=== PATIENT | male | born 1950 | race Caucasian/White ===

== ENCOUNTER 2018-01-22 12:26 | Inpatient (IN) | payer MEDICARE, MEDICAID ==
[2018-01-22 13:07] LABS: ALB/GLOB RATIO 1.1 (1.0-1.8); ALBUMIN 3.4 gm/dL (4.2-5.5); ANION GAP 12.4 (7.0-16.0); BILIRUBIN,TOTAL 0.6 mg/dL (0.3-1.0); CALCIUM SERUM 8.9 mg/dL (8.6-10.3); CARBON DIOXIDE 21.7 mEq/L (21.0-31.0); CREATININE - SERUM 1.8 mg/dL (0.7-1.3); GFR AFRICAN-AMERICAN 48.9 ml/min (>90); GFR NON AFRICAN-AMERICAN 40.4 ml/min; PHOSPHOROUS 3.6 mg/dL (2.5-5.0); POTASSIUM SERUM 5.1 mEq/L (3.5-5.1); TOTAL PROTEIN,SERUM 6.5 gm/dL (6.0-8.3)
[2018-01-22 13:22] LABS: % EOSINOPHILS 0.7 % (0.0-5.0); % LYMPHOCYTES 15.2 % (20.0-50.0); % MONOCYTES 10.9 % (2.0-10.0); % NEUTROPHILS 73.2 % (40.0-80.0); EOSINOPHILE ABSOLUTE 0.1 Th/cmm (0.1-0.4); HEMATOCRIT 29.2 % (41.0-60); HEMOGLOBIN 9.8 gm/dL (12-16); LYMPHOCYTE ABSOLUTE 1.8 Th/cmm (1.5-3.0); MEAN CELL VOLUME 86.3 fl (80-99); MEAN CORPUSCULAR HGB CONC 33.6 pg (28.0-36.0); MONOCYTE ABSOLUTE 1.3 Th/cmm (0.3-1.0); NEUTROPHILE ABSOLUTE 8.4 Th/cmm (1.8-8.0); PLATELET COUNT 305 Th/cmm (150-400); RED BLOOD COUNT 3.38 Mil/cmm (3.80-5.80); RED CELL DISTRIBUTION WIDTH 13.8 % (11.5-20.0); WHITE BLOOD COUNT 11.6 Th/cmm (4.8-10.8)
--- NOTE | 2018-01-22 13:34 | Diagnostic Imaging Report ---
Portable chest x-ray HISTORY: Shortness of breath There is a poor inspiration. Heart size difficult to assess. Faint density noted in the right lower lobe. Findings of questionable significance. Early infiltrate cannot be excluded. Clinical correlation is needed. IMPRESSION: 1. Faint density right lower lobe. Early infiltrate cannot be excluded. Clinical correlation is needed.
[2018-01-22] MEDS ORDERED: Piperacillin Sodium/Tazobact 3.375 gm Vial IV ONE (14:48)
--- NOTE | 2018-01-22 15:26 | ED Physician Chart ---
ED Chief Complaint/HPI - Patient Information Date Seen:: 01/22/18 Time Seen:: 12:44 Chief Complaint:: fever, weakness History of Present Illness:: fever, weakness, lthargy in a man who was given neurontin and norco at the same time last night and eloped from the facility. He did return. He normally doesn 't wear oxygen. Allergies:: Allergies Allergy/AdvReac Type Severity Reaction Status Date / Time No Known Allergies Allergy Verified 01/22/18 12:40 Vitals:: Vital Signs - 8 hr 01/22/18 12:44 Temp 99.2 F HR 87 RR 16 BP 131/70 O2 Sat % 89 Historian:: Patient, EMS, Family Member Review:: Nurse's Note Reviewed, Transfer documents Reviewed ED Review of Systems - Review of Systems General/Constitutional: Fever, Weakness Skin: No skin lesions, No rash, No bruising Head: No headache, No light-headedness Eyes: No loss of vision, No pain, No diplopia ENT: No earache, No nasal drainage, No sore throat, No tinnitus Neck: No neck pain, No swelling, No thyromegaly, No stiffness, No mass noted Cardio Vascular: No chest pain, No palpitations, No PND, No orthopnea, No edema Pulmonary: No SOB, No cough, No sputum, No wheezing GI: No nausea, No vomiting, No diarrhea, No pain, No melena, No hematochezia, No constipation, No hematemesis G/U: No dysuria, No frequency, No hematuria Musculoskeletal: No bone or joint pain, No back pain, No muscle pain Endocrine: No polyuria, No polydipsia Psychiatric: No prior psych history, No depression, No anxiety, No suicidal ideation Hematopoietic: No bruising, No lymphadenopathy Allergic/Immuno: No urticaria, No angioedema Neurological: No syncope, No focal symptoms, No weakness, No paresthesia, No headache, No seizure, No dizziness, Confusion, No vertigo ED Past Medical History - Past Medical History Obtainable: No Past Medical History: HTN, DM, Other (chronic kidney disease) ED Physical Exam - Physical Examination General/Constitutional: Awake Other Gen/Cons comments:: answers all questions appropriately. pale appearing Head: Atraumatic Eyes: Lids, conjuctiva normal, PERRL, EOMI ENMT: External ears, nose nl Neck: Nontender Other Respiratory comments:: decreased breath sounds at bases. Cardio Vascular: RRR GI: No tenderness/rebounding/guarding : No CVA tenderness Other comments:: purulence around suprapubic tube site. Extremities: No tenderness or effusion, Full ROM Neuro/Psych: Alert/oriented, Normal sensory exam, Normal motor strength, Judgement/insight normal, Mood normal Misc: Normal back ED Labs/Radiology/EKG Results - Lab Results Results: Laboratory Tests 01/22/18 01/22/18 01/22/18 12:43 12:45 12:45 WBC 11.6 H RBC 3.38 L Hgb 9.8 L Hct 29.2 L MCV 86.3 MCH 29.0 MCHC Differential 33.6 RDW 13.8 Plt Count 305 MPV 8.0 Neutrophils % 73.2 Lymphocytes % 15.2 L Monocytes % 10.9 H Eosinophils % 0.7 Basophils % 0.0 Sodium 134 L Potassium 5.1 Chloride 105 Carbon Dioxide 21.7 Anion Gap 12.4 BUN 36 H Creatinine 1.8 H Est GFR ( Amer) 48.9 Est GFR (Non-Af Amer) 40.4 BUN/Creatinine Ratio 20.0 Glucose 153 H POC Glucose 152 H Whole Bld Lactic Acid Calcium 8.9 Phosphorus 3.6 Magnesium Total Bilirubin 0.6 AST 15 ALT 12 Alkaline Phosphatase 91 Total Protein 6.5 Albumin 3.4 L Globulin 3.1 Albumin/Globulin Ratio 1.1 TSH 01/22/18 01/22/18 01/22/18 12:45 12:45 12:45 WBC RBC Hgb Hct MCV MCH MCHC Differential RDW Plt Count MPV Neutrophils % Lymphocytes % Monocytes % Eosinophils % Basophils % Sodium Potassium Chloride Carbon Dioxide Anion Gap BUN Creatinine Est GFR ( Amer) Est GFR (Non-Af Amer) BUN/Creatinine Ratio Glucose POC Glucose Whole Bld Lactic Acid 0.70 Calcium Phosphorus Magnesium 2.2 Total Bilirubin AST ALT Alkaline Phosphatase Total Protein Albumin Globulin Albumin/Globulin Ratio TSH 0.22 L ED Assessment - Assessment General Assessment: EKG from 14:55:42 p.m. reveals normal sinus rhythm, flipped t wave in AVR and V1. Assessment/Comments:: ate lunch without difficulty. fed by . Dr. Wills came by to see the patient at 3 p.m. to admit him to the hospital, telemetry unit. ED Septic Shock - . Is Septic Shock (SBP<90, OR Lactate>4 mmol\L) present?: No - <6hrs of presentation: Vital Signs: Vital Signs - 8 hr 01/22/18 12:44 Temp 99.2 F HR 87 RR 16 BP 131/70 O2 Sat % 89 ED Reassessment (Disposition) - Reassessment Reassessment Condition:: Improved - Diagnosis Diagnosis:: Right lower lobe pneumonia Hypoxia with room air saturations 90% Oxygen dependence Chronic renal insufficiency (hypertensive in nature) Dehydration Dehydration Weakness Leukocytosis Anemia Thrombocytosis Depressed thyroid level. - Patient Disposition Discharge/Transfer:: Acute Care w/in this hosp Admitted to:: Telemetry Condition at Disposition:: Stable, Improved
[2018-01-22] MEDS ORDERED: Lactated Ringer 1,000 ML IV ONE (15:29)
[2018-01-22 15:43] LABS: URINE SOURCE CATH
[2018-01-22 15:47] LABS: URINE BILIRUBIN NEGATIVE (NEGATIVE); URINE BLOOD MODERATE (NEGATIVE); URINE GLUCOSE (UA) NEGATIVE (NEGATIVE); URINE KETONE NEGATIVE (NEGATIVE); URINE LEUKOCYTE ESTERASE MODERATE (NEGATIVE); URINE MICROSCOPIC INDICATED? YES; URINE NITRATE NEGATIVE (NEGATIVE); URINE PROTEIN >=300 mg/dL (NEGATIVE); URINE UROBILINOGEN 0.2 E.U./dL (0.2 - 1.0)
[2018-01-22 15:49] LABS: URINE CLARITY HAZY (CLEAR); URINE COLOR YELLOW
[2018-01-22 15:52] LABS: URINE WBC 25-50 /hpf (0-5)
[2018-01-22 15:53] LABS: URINE BACTERIA 3+ /hpf (NONE SEEN); URINE EPITHELIAL CELLS FEW /lpf (FEW)
--- NOTE | 2018-01-22 15:57 | Consultation ---
Consult Note - Consult Note Service Date: 01/22/18 Referring Physician: Susan Wills Consult Note: PHYSICIAN Consultation Note: Date of Admission: 01/22/18 Purpose of Consultation: UTI, Pneumonia. Chief Complaint: Patient AMMON VALDEZ JR [facility] with PNA, R/O INFECTED SUPRAPUBIC CATHETER. History of Present Illness: 67-year-old male with h/o HTN, DM brought to the ED for fever, weakness, lethargy. Even he eloped from his facility and returned back. On initial evaluation, his temperature was 99.2 F and WBC Count was 11, 600. Urinalysis showed pyuria and bacteriuria. CXR showed RLL faint density, suspecting early pneumonia. ID consult was called for further management. Past Medical History: Allergies Allergy/AdvReac Type Severity Reaction Status Date / Time No Known Allergies Allergy Verified 01/22/18 12:40 Vital Signs Temp 99.2 F 01/22/18 12:44 Pulse 87 01/22/18 12:44 Resp 16 01/22/18 12:44 BP 131/70 01/22/18 12:44 Pulse Ox 89 01/22/18 12:44 Intake & Output 01/21/18 01/22/18 01/22/18 18:59 06:59 18:59 Weight (lbs) 104.326 kg Other: Weight Source Estimated Laboratory Results - last 24 hr 01/22/18 01/22/18 01/22/18 12:43 12:45 12:45 WBC 11.6 H RBC 3.38 L Hgb 9.8 L Hct 29.2 L MCV 86.3 MCH 29.0 MCHC Differential 33.6 RDW 13.8 Plt Count 305 MPV 8.0 Neutrophils % 73.2 Lymphocytes % 15.2 L Monocytes % 10.9 H Eosinophils % 0.7 Basophils % 0.0 Sodium 134 L Potassium 5.1 Chloride 105 Carbon Dioxide 21.7 Anion Gap 12.4 BUN 36 H Creatinine 1.8 H Est GFR ( Amer) 48.9 Est GFR (Non-Af Amer) 40.4 BUN/Creatinine Ratio 20.0 Glucose 153 H POC Glucose 152 H Whole Bld Lactic Acid Calcium 8.9 Phosphorus 3.6 Magnesium Total Bilirubin 0.6 AST 15 ALT 12 Alkaline Phosphatase 91 Troponin I Total Protein 6.5 Albumin 3.4 L Globulin 3.1 Albumin/Globulin Ratio 1.1 TSH Urine Source Urine Color Urine Clarity Urine pH Ur Specific [place] Urine Protein Urine Glucose (UA) Urine Ketones Urine Blood Urine Nitrate Urine Bilirubin Urine Urobilinogen Ur Leukocyte Esterase Urine RBC Urine WBC Ur Epithelial Cells Urine Bacteria 01/22/18 01/22/18 01/22/18 12:45 12:45 12:45 WBC RBC Hgb Hct MCV MCH MCHC Differential RDW Plt Count MPV Neutrophils % Lymphocytes % Monocytes % Eosinophils % Basophils % Sodium Potassium Chloride Carbon Dioxide Anion Gap BUN Creatinine Est GFR ( Amer) Est GFR (Non-Af Amer) BUN/Creatinine Ratio Glucose POC Glucose Whole Bld Lactic Acid 0.70 Calcium Phosphorus Magnesium 2.2 Total Bilirubin AST ALT Alkaline Phosphatase Troponin I Total Protein Albumin Globulin Albumin/Globulin Ratio TSH 0.22 L Urine Source Urine Color Urine Clarity Urine pH Ur Specific [place] Urine Protein Urine Glucose (UA) Urine Ketones Urine Blood Urine Nitrate Urine Bilirubin Urine Urobilinogen Ur Leukocyte Esterase Urine RBC Urine WBC Ur Epithelial Cells Urine Bacteria 01/22/18 01/22/18 12:45 15:06 WBC RBC Hgb Hct MCV MCH MCHC Differential RDW Plt Count MPV Neutrophils % Lymphocytes % Monocytes % Eosinophils % Basophils % Sodium Potassium Chloride Carbon Dioxide Anion Gap BUN Creatinine Est GFR ( Amer) Est GFR (Non-Af Amer) BUN/Creatinine Ratio Glucose POC Glucose Whole Bld Lactic Acid Calcium Phosphorus Magnesium Total Bilirubin AST ALT Alkaline Phosphatase Troponin I 0.04 Total Protein Albumin Globulin Albumin/Globulin Ratio TSH Urine Source CATH Urine Color YELLOW Urine Clarity HAZY Urine pH 7.0 Ur Specific [place] 1.020 Urine Protein >=300 Urine Glucose (UA) NEGATIVE Urine Ketones NEGATIVE Urine Blood MODERATE H Urine Nitrate NEGATIVE Urine Bilirubin NEGATIVE Urine Urobilinogen 0.2 Ur Leukocyte Esterase MODERATE H Urine RBC 5-10 H Urine WBC 25-50 H Ur Epithelial Cells FEW Urine Bacteria 3+ H Home Medication Medication Instructions Recorded Type Albuterol/Ipratropium Neb [Duoneb 3 ml HHN Q4HR PRN 01/22/18 History Neb] Aspirin [Aspirin Chewable] 81 mg PO DAILY 01/22/18 History Atorvastatin Calcium [Lipitor] 10 mg PO HS 01/22/18 History Bisacodyl [Dulcolax 10 Mg Supp] 10 mg RC DAILY PRN 01/22/18 History Carbamide Peroxide [Debrox Otic 5 drop RIGHT EAR BID 01/22/18 History Drops] Dexamethasone/Tobramycin [Tobradex 2 drop LEFT EYE TID 01/22/18 History 0.1%-0.3% Ophth Susp 2.5ml] Fleet Enema 135 ml RC PRN PRN 01/22/18 History Gabapentin 300 mg PO Q8H 01/22/18 History Hydralazine HCl 50 mg PO TID 01/22/18 History Insulin Glargine,Hum.rec.anlog 20 unit SUBQ Q12H 01/22/18 History [Lantus Solostar] Insulin Human Regular [NovoLIN R] 0 units SUBQ ACHS 01/22/18 History Isosorbide Mononitrate [Imdur] 30 mg PO HS 01/22/18 History Magnesium Hydroxide [Milk of 30 ml PO DAILY PRN 01/22/18 History Magnesia] Melatonin 3 mg PO HS 01/22/18 History Metoprolol Succinate 25 mg PO DAILY 01/22/18 History Multivitamin with Minerals 1 each PO DAILY 01/22/18 History [Myvitalife] Nitroglycerin [Nitro-Bid] 1 inch TD BID 01/22/18 History Pantoprazole [Protonix] 40 mg PO DAILY 01/22/18 History Current Medications Generic Name Dose Route Start Last Admin Trade Name Freq PRN Reason Stop Dose Admin Lactated Ringer's 1,000 mls @ 125 mls/hr 01/22/18 15:29 Lactated Ringer IV 01/22/18 23:28 .Q8H ONE Vancomycin HCl 1.5 gm/ Sodium 500 mls @ 250 mls/hr 01/22/18 16:00 Chloride IV 01/22/18 17:59 ONCE ONE Sodium Chloride 1,000 mls @ 75 mls/hr 01/22/18 16:00 Nacl 0.45% IV 03/23/18 15:59 .[id number] [facility] Insulin Aspart 0 units 01/22/18 16:30 Novolog Insulin Sliding Scale SUBQ 03/23/18 16:29 ACHS KRISH Protocol Miscellaneous 1 ea 01/22/18 15:21 Vancomycin Iv Per Pharmacy 03/23/18 15:20 PRN PRN PROTOCOL Miscellaneous 1 ea 01/22/18 15:22 Zosyn Iv Per Pharmacy 03/23/18 15:21 PRN PRN PROTOCOL Review of Systems: A 12 point ROS was reviewed with the pertinent positive and negatives noted in the HPI. Social History Smoking Status Never smoker Physical Exam: General: Comfortable, not in any distress, HEENT: HEAD NC NT, ORAL CAVITY: Moist, pink tongue, pupil PERRLA. EOMI. Neck: Supple, no JVD, no carotid bruit. No use of accessory neck muscles. Cardio: S1 and D2 WNL. Respiratory: CTAP Abdominal: Soft NT ND BS present. Genital/Urinary: Extremities: NCCE finger nails are yellow and disfigured. Neurological: aaox3 Assessment: 1. UTI. 2. RLL pneumonia. 3. Respiratory failure. 4. Dementia. 5. DM2 6. HTN. 7. Tinea corporis/pedis Plan: Start Zosyn. Influenza screen. sepsis w/u. Lamisil Signed, Eber Manning M.D. [id number]
[2018-01-22] MEDS ORDERED: Vancomycin HCl 1.5 GM in Sodium Chloride 0.9% 500 ML IV ONE (16:00)
[2018-01-22 16:13] LABS: AMPHETAMINE URINE NEGATIVE (NEGATIVE); BARBITURATES URINE NEGATIVE (NEGATIVE); BENZODIAZEPINES QUAL URINE NEGATIVE (NEGATIVE); CANNABINOID THC NEGATIVE (NEGATIVE); COCAINE METABOLITE QUAL URINE NEGATIVE (NEGATIVE); METHADONE URINE NEGATIVE (NEGATIVE); METHAMPHETAMINES QUAL URINE NEGATIVE (NEGATIVE); OPIATES (MORPHINE) QUAL. URINE POSITIVE (NEGATIVE); PHENCYCLIDINE (PCP) URINE NEGATIVE (NEGATIVE); TRICYCLICS (TCA) QUAL. URINE NEGATIVE (NEGATIVE)
[2018-01-22] MEDS ORDERED: Magnesium Hydroxide (MOM) 30 mL UDC PO PRN (18:57)
[2018-01-22] MEDS ORDERED: Maalox 30 mL Cup PO PRN (18:57)
[2018-01-22] MEDS ORDERED: Albuterol/Ipratropium Neb 3 ML AERS HHN PRN (18:57)
[2018-01-22] MEDS ORDERED: Lidocaine 2% Gel 5 mL TP PRN (18:57)
[2018-01-22] MEDS ORDERED: Fleet Enema 135 mL RC PRN (18:57)
[2018-01-22] MEDS ORDERED: Hydrocodone/APAP 5mg/325mg Tab PO PRN (18:57)
--- NOTE | 2018-01-22 20:51 | Consultation ---
DATE OF CONSULTATION: UROLOGY CONSULTATION REASON FOR CONSULTATION: 1. Seen in the Emergency Room for "sepsis" from pneumonia and possible UTI. 2. Purulent drainage from around the suprapubic catheter. HISTORY OF PRESENT ILLNESS: The patient is a 67-year-old who was at [facility] 2 months ago with urinary retention. He underwent TURP successfully, but was unable to empty his bladder due to a neurogenic dysfunction. He then underwent a suprapubic catheter placement and was then discharged to a [place] [facility] from where he returns today with a diagnoses of hypoxia, dehydration, weakness, and leukocytosis. HOME MEDICATIONS: Albuterol inhaler, aspirin, Lipitor, Dulcolax, eyedrops, enemas, gabapentin, hydralazine, insulin, isosorbide, Imdur, melatonin, milk of magnesia, metoprolol, and Protonix. ALLERGIES: None. PHYSICAL EXAMINATION: GENERAL: He is awake, alert, slightly lethargic. VITAL SIGNS: Temperature 99.2, heart rate 87, blood pressure 131/70. His is at the bedside. ABDOMEN: Soft, nondistended, nontender. Suprapubic tube is in place, but not anchored as well as it should be, with a small amount of purulent drainage around the tract. The urine in the tube is yellow, but with a lot of debris and sediment. LABORATORY DATA: White count 11.6, hemoglobin 9.8, slight left shift. Sodium 134, potassium 5.1, BUN 36, creatinine 1.8, and glucose 153. Liver functions are normal. IMPRESSION: Neurogenic bladder with suprapubic tube, status post failed TURP and neurogenic bladder. Recommend catheter care. Discussed and explained to the nurses about anchoring the catheter, keeping it clean, irrigating it with normal saline several times now and then once a day and cleaning and packing the wound around the suprapubic catheter first with Betadine and then with iodoform gauze. I do not think that this is the cause of his sepsis if any and would concentrate more on the chest x-ray findings and the possibility of pneumonia. JOB# [id number]
[2018-01-22] MEDS ORDERED: Non-Formulary Item 1 EA (Melatonin [Melatonin] 3 MG) PO SCH (21:00)
[2018-01-22] MEDS: Atorvastatin Calcium 10 MG TAB PO SCH (21:03)
[2018-01-22] MEDS: Sodium Chloride 0.45% 1,000 ML IV SCH (21:05)
[2018-01-22] MEDS: Dexamethasone/Tobramycin Ophth Susp 2.5 mL Bottle LEFT EYE SCH (21:05)
[2018-01-22] MEDS: INSULIN ASPART SLIDING SCALE 100 UNITS/ML UNIT SUBQ SCH (21:08)
[2018-01-22] MEDS: Insulin Detemir 100 units/mL 10mL Vial SUBQ SCH (21:14)
[2018-01-23 06:57] LABS: % BASOPHILS 0.3 % (0.0-2.0); % EOSINOPHILS 0.8 % (0.0-5.0); % LYMPHOCYTES 18.1 % (20.0-50.0); % MONOCYTES 13.7 % (2.0-10.0); % NEUTROPHILS 67.1 % (40.0-80.0); EOSINOPHILE ABSOLUTE 0.1 Th/cmm (0.1-0.4); HEMOGLOBIN 8.9 gm/dL (12-16); LYMPHOCYTE ABSOLUTE 2.3 Th/cmm (1.5-3.0); MEAN CELL VOLUME 86.3 fl (80-99); MEAN CORPUSCULAR HEMOGLOBIN 29.4 pg (27.0-31.0); MEAN CORPUSCULAR HGB CONC 34.1 pg (28.0-36.0); MEAN PLATELET VOLUME 7.9 fl; MONOCYTE ABSOLUTE 1.7 Th/cmm (0.3-1.0); NEUTROPHILE ABSOLUTE 8.5 Th/cmm (1.8-8.0); PLATELET COUNT 285 Th/cmm (150-400); RED BLOOD COUNT 3.02 Mil/cmm (3.80-5.80); RED CELL DISTRIBUTION WIDTH 13.6 % (11.5-20.0)
[2018-01-23 07:13] LABS: ALB/GLOB RATIO 1.1 (1.0-1.8); ALBUMIN 3.2 gm/dL (4.2-5.5); ANION GAP 11.4 (7.0-16.0); BILIRUBIN,TOTAL 0.7 mg/dL (0.3-1.0); CALCIUM SERUM 8.9 mg/dL (8.6-10.3); CARBON DIOXIDE 22.8 mEq/L (21.0-31.0); CREATININE - SERUM 2.1 mg/dL (0.7-1.3); GFR NON AFRICAN-AMERICAN 33.9 ml/min; POTASSIUM SERUM 4.2 mEq/L (3.5-5.1); TOTAL PROTEIN,SERUM 6.1 gm/dL (6.0-8.3)
[2018-01-23 08:04] LABS: WHITE BLOOD COUNT 12.6 Th/cmm (4.8-10.8)
[2018-01-23] MEDS: INSULIN ASPART SLIDING SCALE 100 UNITS/ML UNIT SUBQ SCH ×5 (08:38→20:39)
[2018-01-23] MEDS: Insulin Detemir 100 units/mL 10mL Vial SUBQ SCH ×2 (09:18→20:39)
[2018-01-23] MEDS: Dexamethasone/Tobramycin Ophth Susp 2.5 mL Bottle LEFT EYE SCH ×3 (09:25→20:38)
[2018-01-23] MEDS: NITROGLYCERIN OINT 2% 1 INCH PACKET TP SCH ×2 (09:25→16:31)
[2018-01-23] MEDS: TERBINAFINE 1% TP SCH (09:25)
[2018-01-23] MEDS: Pantoprazole 40 mg EC Tab PO SCH (09:26)
[2018-01-23] MEDS: Aspirin 81mg Chewable Tab PO SCH (09:26)
[2018-01-23] MEDS: Multivitamin w/ Minerals Tab PO SCH (09:26)
[2018-01-23] MEDS: Carbamide Peroxide Otic Soln 15 mL Bottle RIGHT EAR SCH ×2 (09:27→16:35)
[2018-01-23] MEDS: Vancomycin HCl 1.5 GM in Sodium Chloride 0.9% 500 ML IV SCH (11:16)
[2018-01-23] MEDS: Sodium Chloride 0.45% 1,000 ML IV SCH (11:17)
--- NOTE | 2018-01-23 15:56 | History & Physical ---
ADMIT DATE: 01/23/2018 DICTATING FOR: Dr. Wills. CHIEF COMPLAINT: Fever, weakness. HISTORY OF PRESENT ILLNESS: This is a 67-year-old male who is a jail resident, admitted to the telemetry unit due to episodes of fever, increase in weakness and lethargy at the nursing facility. For further management, the patient is now admitted here to the telemetry unit. PAST MEDICAL HISTORY: Hypertension, diabetes, chronic kidney disease. SOCIAL HISTORY: The patient is a jail resident. FAMILY HISTORY: Noncontributory. REVIEW OF SYSTEMS: GENERAL: Denies any fevers and chills. Complains of weakness. CARDIOVASCULAR: Denies chest pain. RESPIRATORY: Denies shortness of breath. GASTROINTESTINAL: Denies nausea, vomiting, abdominal pain. GENITOURINARY: Denies increased frequency, dysuria. NEUROLOGIC: No headaches, seizures, or syncope. All systems are reviewed and negative. PHYSICAL EXAMINATION: GENERAL: The patient is well developed, well nourished, in no apparent distress. VITAL SIGNS: Temperature 98.5, heart rate 70, blood pressure 124/58, respirations 20, O2 95%. HEENT: Head: Normocephalic, atraumatic. NECK: Supple. No mass. LUNGS: Clear bilaterally. HEART: Regular rate and rhythm. ABDOMEN: Soft, nontender. LABORATORY DATA: WBC 12.6, H and H 8.9 and 26.0, platelet of 285. Sodium 135, potassium 4.2, BUN 39, creatinine 2.1. ASSESSMENT: Acute urinary tract infection, right lower lobe pneumonia, dementia, type 2 diabetes, hypertension. PLAN: The patient to be admitted to the telemetry unit. We will get Urology as well as ID consultation. Keep the patient on empiric IV antibiotics for now. Also get dobby looms pegger on the case. We will get bronchodilators as needed. Supplemental oxygen as needed. We will continue to monitor this patient. JOB# [id number]
--- NOTE | 2018-01-23 16:13 | Consultation ---
DATE OF CONSULTATION: 01/22/[address] Wills. Thank you very much for this consultation, Dr. Wills. HISTORY OF PRESENT ILLNESS: This is a 67-year-old male who apparently lives in a skilled nursing, apparently decided to leave. He said he double dosed on the Neurontin and [place], was altered apparently. He came back to facility with some fever, lethargy, brought in to Emergency Room, was admitted for treatment and management, was found to have possible pneumonia. PAST MEDICAL HISTORY: As above. Hypertension and diabetes. SOCIAL HISTORY: He smokes for a few years, quit when he was 22 years old. REVIEW OF SYSTEMS: GENERAL: Some weakness and fatigue. CARDIOVASCULAR: No chest pain. RESPIRATORY: No shortness of breath, minimal cough. GASTROINTESTINAL: No nausea or vomiting. PHYSICAL EXAMINATION: GENERAL: Awake, alert, not in acute distress. VITAL SIGNS: Temperature is 98.2, pulse 86, respirations 18, blood pressure 122/72, and saturation 95%. HEENT: Atraumatic and normocephalic. Pupils are react to light and accommodation. Ears, nose and throat normal. NECK: Supple. No JVD. CHEST: There are decreased breath sounds at bilateral bases. HEART: Regular rate and rhythm. ABDOMEN: Soft. EXTREMITIES: No edema. DIAGNOSTIC STUDIES: Chest x-ray showed possible infiltrate in the right lower lobe area. LABORATORY DATA: WBC is 11.6, hemoglobin 9.8, hematocrit 29.2, and platelets 305. Sodium 134, potassium 5.1, BUN 36, and creatinine 1.8. UA shows leukoesterase positive, WBC is positive. Urine drug screen was positive for opiates. IMPRESSION: This is a 67-year-old male with: 1. Urinary tract infection. 2. Pneumonia. 3. Hypoxemia, better. PLAN: 1. Continue antibiotics. 2. Nebulizer treatments. 3. Oxygen supplementation. 4. Followup chest x-ray. I will follow the patient with you. Thank you very much for the consultation. JOB# [id number]
[2018-01-23] MEDS: Atorvastatin Calcium 10 MG TAB PO SCH (20:38)
[2018-01-24] MEDS: Sodium Chloride 0.45% 1,000 ML IV SCH (04:03)
--- NOTE | 2018-01-24 05:52 | Progress Notes ---
DATE: SUBJECTIVE: The patient had a suprapubic tube, fall off this morning, was replaced by the Emergency Room physician after which it has been draining well. IMPRESSION: Urinary retention, failed TURP, need suprapubic catheter, which is draining after being replaced. Continue catheter care, irrigation, and wound care. JOB# [id number]
[2018-01-24] MEDS: INSULIN ASPART SLIDING SCALE 100 UNITS/ML UNIT SUBQ SCH ×4 (06:43→20:17)
[2018-01-24] MEDS: Pantoprazole 40 mg EC Tab PO SCH (06:43)
[2018-01-24] MEDS: Aspirin 81mg Chewable Tab PO SCH (08:22)
[2018-01-24] MEDS: Multivitamin w/ Minerals Tab PO SCH (08:24)
[2018-01-24] MEDS: NITROGLYCERIN OINT 2% 1 INCH PACKET TP SCH ×2 (08:25→17:25)
[2018-01-24 08:28] LABS: ANION GAP 11.2 (7.0-16.0); CALCIUM SERUM 8.3 mg/dL (8.6-10.3); CARBON DIOXIDE 23.4 mEq/L (21.0-31.0); CREATININE - SERUM 2.2 mg/dL (0.7-1.3); GFR AFRICAN-AMERICAN 38.8 ml/min (>90); GFR NON AFRICAN-AMERICAN 32.1 ml/min; POTASSIUM SERUM 4.6 mEq/L (3.5-5.1)
[2018-01-24] MEDS: Vancomycin HCl 1.5 GM in Sodium Chloride 0.9% 500 ML IV SCH (08:31)
[2018-01-24] MEDS: TERBINAFINE 1% TP SCH (08:31)
[2018-01-24] MEDS: Dexamethasone/Tobramycin Ophth Susp 2.5 mL Bottle LEFT EYE SCH ×3 (08:32→20:16)
[2018-01-24] MEDS: Carbamide Peroxide Otic Soln 15 mL Bottle RIGHT EAR SCH ×2 (08:32→17:27)
[2018-01-24] MEDS: Insulin Detemir 100 units/mL 10mL Vial SUBQ SCH ×2 (08:34→20:18)
--- NOTE | 2018-01-24 09:01 | Diagnostic Imaging Report ---
CHEST X-RAY: AP view INDICATION: Shortness of breath COMPARISON: 01/22/2018 FINDINGS: Congestive changes are noted with right basal infiltrate. No effusions. Heart size is borderline prominent. IMPRESSION: Congestive changes and right basal infiltrate. Follow-up recommended.
--- NOTE | 2018-01-24 13:31 | Infectious Disease Prog Note ---
Infectious Disease Subjective - Review of Systems Service Date: 01/24/18 Subjective: No new change, no fever. Infectious Disease Objective - Results Result Diagrams: 01/23/18 05:20 01/24/18 07:45 Recent Labs: Laboratory Last Values WBC 12.6 Th/cmm (4.8-10.8) H 01/23/18 05:20 RBC 3.02 Mil/cmm (3.80-5.80) L 01/23/18 05:20 Hgb 8.9 gm/dL (12-16) L 01/23/18 05:20 Hct 26.0 % (41.0-60) L 01/23/18 05:20 MCV 86.3 fl (80-99) 01/23/18 05:20 MCH 29.4 pg (27.0-31.0) 01/23/18 05:20 MCHC Differential 34.1 pg (28.0-36.0) 01/23/18 05:20 RDW 13.6 % (11.5-20.0) 01/23/18 05:20 Plt Count 285 Th/cmm (150-400) 01/23/18 05:20 MPV 7.9 fl 01/23/18 05:20 Neutrophils % 67.1 % (40.0-80.0) 01/23/18 05:20 Lymphocytes % 18.1 % (20.0-50.0) L 01/23/18 05:20 Monocytes % 13.7 % (2.0-10.0) H 01/23/18 05:20 Eosinophils % 0.8 % (0.0-5.0) 01/23/18 05:20 Basophils % 0.3 % (0.0-2.0) 01/23/18 05:20 Sodium 134 mEq/L (136-145) L 01/24/18 07:45 Potassium 4.6 mEq/L (3.5-5.1) 01/24/18 07:45 Chloride 104 mEq/L (98-107) 01/24/18 07:45 Carbon Dioxide 23.4 mEq/L (21.0-31.0) 01/24/18 07:45 Anion Gap 11.2 (7.0-16.0) 01/24/18 07:45 BUN 41 mg/dL (7-25) H 01/24/18 07:45 Creatinine 2.2 mg/dL (0.7-1.3) H 01/24/18 07:45 Est GFR ( Amer) 38.8 ml/min (>90) 01/24/18 07:45 Est GFR (Non-Af Amer) 32.1 ml/min 01/24/18 07:45 BUN/Creatinine Ratio 18.6 01/24/18 07:45 Glucose 99 mg/dL (70-105) 01/24/18 07:45 POC Glucose 127 MG/DL (70 - 105) H 01/24/18 11:28 Whole Bld Lactic Acid 0.70 mmol/L (0.60-1.99) 01/22/18 12:45 Calcium 8.3 mg/dL (8.6-10.3) L 01/24/18 07:45 Phosphorus 3.6 mg/dL (2.5-5.0) 01/22/18 12:45 Magnesium 2.2 mg/dL (1.9-2.7) 01/22/18 12:45 Total Bilirubin 0.7 mg/dL (0.3-1.0) 01/23/18 05:20 AST 22 U/L (13-39) 01/23/18 05:20 ALT 19 U/L (7-52) 01/23/18 05:20 Alkaline Phosphatase 90 U/L (34-104) 01/23/18 05:20 Troponin I 0.04 ng/mL (0.01-0.05) 01/22/18 12:45 Total Protein 6.1 gm/dL (6.0-8.3) 01/23/18 05:20 Albumin 3.2 gm/dL (4.2-5.5) L 01/23/18 05:20 Globulin 2.9 gm/dL 01/23/18 05:20 Albumin/Globulin Ratio 1.1 (1.0-1.8) 01/23/18 05:20 TSH 0.22 uIU/ml (0.34-5.60) L 01/22/18 12:45 Urine Source CATH 01/22/18 15:06 Urine Color YELLOW 01/22/18 15:06 Urine Clarity HAZY (CLEAR) 01/22/18 15:06 Urine pH 7.0 (4.6 - 8.0) 01/22/18 15:06 Ur Specific [place] 1.020 (1.005-1.030) 01/22/18 15:06 Urine Protein >=300 mg/dL (NEGATIVE) 01/22/18 15:06 Urine Glucose (UA) NEGATIVE mg/dL (NEGATIVE) 01/22/18 15:06 Urine Ketones NEGATIVE mg/dL (NEGATIVE) 01/22/18 15:06 Urine Blood MODERATE (NEGATIVE) H 01/22/18 15:06 Urine Nitrate NEGATIVE (NEGATIVE) 01/22/18 15:06 Urine Bilirubin NEGATIVE (NEGATIVE) 01/22/18 15:06 Urine Urobilinogen 0.2 E.U./dL (0.2 - 1.0) 01/22/18 15:06 Ur Leukocyte Esterase MODERATE (NEGATIVE) H 01/22/18 15:06 Urine RBC 5-10 /hpf (0-5) H 01/22/18 15:06 Urine WBC 25-50 /hpf (0-5) H 01/22/18 15:06 Ur Epithelial Cells FEW /lpf (FEW) 01/22/18 15:06 Urine Bacteria 3+ /hpf (NONE SEEN) H 01/22/18 15:06 Vancomycin Trough 11.5 ug/mL (5-10) H 01/24/18 07:45 Urine Opiates Screen POSITIVE (NEGATIVE) H 01/22/18 15:06 Urine Methadone Screen NEGATIVE (NEGATIVE) 01/22/18 15:06 Ur Barbiturates Screen NEGATIVE (NEGATIVE) 01/22/18 15:06 Ur Tricyclics Screen NEGATIVE (NEGATIVE) 01/22/18 15:06 Ur Phencyclidine Scrn NEGATIVE (NEGATIVE) 01/22/18 15:06 Amphetamines Screen NEGATIVE (NEGATIVE) 01/22/18 15:06 U Methamphetamines Scrn NEGATIVE (NEGATIVE) 01/22/18 15:06 U Benzodiazepines Scrn NEGATIVE (NEGATIVE) 01/22/18 15:06 U Cocaine Metab Screen NEGATIVE (NEGATIVE) 01/22/18 15:06 U Cannabinoids Screen NEGATIVE (NEGATIVE) 01/22/18 15:06 - Physical Exam Vitals and I&O: Vital Signs Temp 98.1 F 01/24/18 12:00 Pulse 71 01/24/18 12:00 Resp 18 01/24/18 12:00 BP 117/56 01/24/18 12:00 Pulse Ox 92 01/24/18 12:00 Intake & Output 01/23/18 01/24/18 01/24/18 18:59 06:59 18:59 Intake Total 2850 1460 Output Total 650 600 Balance 2200 860 Weight (lbs) 97.522 kg 99.79 kg Intake: Intake, IV Amount 1600 1100 Piperacillin Sodium/ 100 100 Tazobact 3.375 gm In Sodium Chloride 0.9% 50 ml @ 100 mls/hr IV Q6HR [facility] Rx#:[id number] Sodium Chloride 0.45% 1, 1000 1000 000 ml @ 75 mls/hr IV . [id number] [facility] Rx#:[id number] Vancomycin HCl 1.5 gm In 500 Sodium Chloride 0.9% 500 ml @ 250 mls/hr IV Q24HR@ 0900 [facility] Rx#:[id number] Oral 1250 360 Output: Urine 650 600 Other: # Bowel Movements 1 1 Stool Characteristics Formed Formed Formed Weight Source Bedscale Bedscale Active Medications: Current Medications Acetaminophen (Tylenol) 650 mg PO Q4H PRN PRN Reason: temp >100.4 or mild pain Last Admin: 01/24/18 08:22 Dose: 650 mg Acetaminophen/Hydrocodone Bitart ([place] 5mg/325mg) 1 tab PO Q4H PRN PRN Reason: Pain (Moderate) Stop: 03/23/18 18:56 Al Hydrox/Mg Hydrox/Simethicone (Maalox) 30 ml PO Q6H PRN PRN Reason: Indigestion Albuterol/Ipratropium (Duoneb Neb) 3 ml HHN Q4HRT PRN PRN Reason: Shortness of Breath Stop: 03/23/18 18:56 Aspirin (Aspirin Chewable) 81 mg PO DAILY [facility] Stop: 03/24/18 08:59 Last Admin: 01/24/18 08:22 Dose: Not Given Atorvastatin Calcium (Lipitor) 10 mg PO HS [facility]; Protocol Stop: 03/23/18 20:59 Last Admin: 01/23/18 20:38 Dose: 10 mg Bisacodyl (Dulcolax 10 Mg Supp) 10 mg RC DAILY PRN PRN Reason: IF MOM INEFFECTIVE Stop: 03/23/18 18:56 Carbamide Peroxide (Debrox Otic Drops) 5 drop RIGHT EAR BID [facility] Stop: 01/27/18 08:59 Last Admin: 01/24/18 08:32 Dose: Not Given Docusate Sodium (Colace) 100 mg PO HS PRN PRN Reason: Constipation Stop: 03/23/18 18:56 Gabapentin (Neurontin) 300 mg PO Q8HR [facility] Stop: 03/23/18 20:59 Last Admin: 01/24/18 12:48 Dose: 300 mg Hydralazine HCl (Apresoline) 50 mg PO TID [facility] Stop: 03/23/18 20:59 Last Admin: 01/24/18 08:22 Dose: 50 mg Sodium Chloride (Nacl 0.45%) 1,000 mls @ 75 mls/hr IV .[id number] [facility] Stop: 03/23/18 19:59 Last Admin: 01/24/18 04:03 Dose: 75 mls/hr Piperacillin Sod/Tazobactam (Sod 3.375 gm/ Sodium Chloride) 50 mls @ 100 mls/ hr IV Q6HR [facility] Stop: 03/23/18 17:59 Last Admin: 01/24/18 12:53 Dose: 100 mls/hr Vancomycin HCl 1.5 gm/ Sodium (Chloride) 500 mls @ 250 mls/hr IV Q24HR@0900 [facility] Stop: 03/24/18 09:59 Last Admin: 01/24/18 08:31 Dose: 250 mls/hr Insulin Aspart (Novolog Insulin Sliding Scale) 0 units SUBQ ACHS [facility]; Protocol Stop: 03/23/18 20:59 Last Admin: 01/24/18 12:49 Dose: Not Given Insulin Detemir (Levemir Insulin) 20 units SUBQ Q12HR [facility] Stop: 03/23/18 20:59 Last Admin: 01/24/18 08:34 Dose: Not Given Isosorbide Mononitrate (Imdur) 30 mg PO HS [facility] Stop: 03/23/18 20:59 Last Admin: 01/23/18 20:38 Dose: 30 mg Lidocaine HCl (Xylocaine 2% Gel) 5 ml TP Q4H PRN PRN Reason: PAIN MANAGEMENT Stop: 03/23/18 18:56 Magnesium Hydroxide (Milk Of Magnesia) 30 ml PO DAILY PRN PRN Reason: IF NO BM IN TWO DAYS Stop: 03/23/18 18:56 Last Admin: 01/23/18 16:41 Dose: 30 ml Metoprolol Succinate (Toprol Xl) 25 mg PO DAILY [facility] Stop: 03/24/18 08:59 Last Admin: 01/24/18 08:24 Dose: 25 mg Miscellaneous (Vancomycin Iv Per Pharmacy) 1 ea PRN PRN PRN Reason: PROTOCOL Stop: 03/23/18 15:20 Miscellaneous (Zosyn Iv Per Pharmacy) 1 ea PRN PRN PRN Reason: PROTOCOL Stop: 03/23/18 15:21 Miscellaneous (Melatonin [Melatonin]) 3 mg PO HS [facility] Stop: 03/23/18 20:59 Miscellaneous (Clinical Monitoring) 1 ea MC DAILY PRN PRN Reason: RENAL Stop: 03/24/18 11:16 Nitroglycerin (Nitro-Bid) 1 inch TP BID [facility] Stop: 03/24/18 08:59 Last Admin: 01/24/18 08:25 Dose: 1 inch Pantoprazole Sodium (Protonix) 40 mg PO QDAC [facility] Stop: 03/24/18 07:29 Last Admin: 01/24/18 06:43 Dose: 40 mg Sodium Phosphate (Fleet Enema) 135 ml RC DAILY PRN PRN Reason: IF MOM/DULCOLAX INEFFECTIVE Stop: 03/23/18 18:56 Terbinafine HCl (Lamisil 1% Cream) 0 appl TP DAILY [facility] Stop: 03/24/18 08:59 Last Admin: 01/24/18 08:31 Dose: 1 appl Tobramycin/Dexamethasone (Tobradex 0.1%-0.3% Ophth Susp 2.5ml) 2 drop LEFT EYE TID [facility] Stop: 03/23/18 20:59 Last Admin: 01/24/18 08:32 Dose: 2 drop General: no acute distress, well developed, well nourished HEENT: atraumatic, normocephalic Neck: supple, no thyromegaly Cardiovascular: S1S2, regular Lungs: clear to auscultation bilaterally, clear to percussion Abdomen: soft, no tender Extremities: no cyanosis, no clubbing, no edema Neurological: awake, alert, oriented Skin: intact Infectious Disease Assmt/Plan - Problem List Patient Problems: All Active Problems INCREASED LETHARGY WITH FEVER (Acute) - Assessment Assessment: 1. UTI. 2. RLL pneumonia. 3. Respiratory failure. 4. Dementia. 5. DM2 6. HTN. 7. Tinea corporis/pedis - Plan Plan: Esteban Barboza and Lamisil
--- NOTE | 2018-01-24 13:34 | Infectious Disease Prog Note ---
Infectious Disease Subjective - Review of Systems Service Date: 01/24/18 Subjective: No new change, no fever. Infectious Disease Objective - Results Result Diagrams: 01/23/18 05:20 01/24/18 07:45 Recent Labs: Laboratory Last Values WBC 12.6 Th/cmm (4.8-10.8) H 01/23/18 05:20 RBC 3.02 Mil/cmm (3.80-5.80) L 01/23/18 05:20 Hgb 8.9 gm/dL (12-16) L 01/23/18 05:20 Hct 26.0 % (41.0-60) L 01/23/18 05:20 MCV 86.3 fl (80-99) 01/23/18 05:20 MCH 29.4 pg (27.0-31.0) 01/23/18 05:20 MCHC Differential 34.1 pg (28.0-36.0) 01/23/18 05:20 RDW 13.6 % (11.5-20.0) 01/23/18 05:20 Plt Count 285 Th/cmm (150-400) 01/23/18 05:20 MPV 7.9 fl 01/23/18 05:20 Neutrophils % 67.1 % (40.0-80.0) 01/23/18 05:20 Lymphocytes % 18.1 % (20.0-50.0) L 01/23/18 05:20 Monocytes % 13.7 % (2.0-10.0) H 01/23/18 05:20 Eosinophils % 0.8 % (0.0-5.0) 01/23/18 05:20 Basophils % 0.3 % (0.0-2.0) 01/23/18 05:20 Sodium 134 mEq/L (136-145) L 01/24/18 07:45 Potassium 4.6 mEq/L (3.5-5.1) 01/24/18 07:45 Chloride 104 mEq/L (98-107) 01/24/18 07:45 Carbon Dioxide 23.4 mEq/L (21.0-31.0) 01/24/18 07:45 Anion Gap 11.2 (7.0-16.0) 01/24/18 07:45 BUN 41 mg/dL (7-25) H 01/24/18 07:45 Creatinine 2.2 mg/dL (0.7-1.3) H 01/24/18 07:45 Est GFR ( Amer) 38.8 ml/min (>90) 01/24/18 07:45 Est GFR (Non-Af Amer) 32.1 ml/min 01/24/18 07:45 BUN/Creatinine Ratio 18.6 01/24/18 07:45 Glucose 99 mg/dL (70-105) 01/24/18 07:45 POC Glucose 127 MG/DL (70 - 105) H 01/24/18 11:28 Whole Bld Lactic Acid 0.70 mmol/L (0.60-1.99) 01/22/18 12:45 Calcium 8.3 mg/dL (8.6-10.3) L 01/24/18 07:45 Phosphorus 3.6 mg/dL (2.5-5.0) 01/22/18 12:45 Magnesium 2.2 mg/dL (1.9-2.7) 01/22/18 12:45 Total Bilirubin 0.7 mg/dL (0.3-1.0) 01/23/18 05:20 AST 22 U/L (13-39) 01/23/18 05:20 ALT 19 U/L (7-52) 01/23/18 05:20 Alkaline Phosphatase 90 U/L (34-104) 01/23/18 05:20 Troponin I 0.04 ng/mL (0.01-0.05) 01/22/18 12:45 Total Protein 6.1 gm/dL (6.0-8.3) 01/23/18 05:20 Albumin 3.2 gm/dL (4.2-5.5) L 01/23/18 05:20 Globulin 2.9 gm/dL 01/23/18 05:20 Albumin/Globulin Ratio 1.1 (1.0-1.8) 01/23/18 05:20 TSH 0.22 uIU/ml (0.34-5.60) L 01/22/18 12:45 Urine Source CATH 01/22/18 15:06 Urine Color YELLOW 01/22/18 15:06 Urine Clarity HAZY (CLEAR) 01/22/18 15:06 Urine pH 7.0 (4.6 - 8.0) 01/22/18 15:06 Ur Specific [place] 1.020 (1.005-1.030) 01/22/18 15:06 Urine Protein >=300 mg/dL (NEGATIVE) 01/22/18 15:06 Urine Glucose (UA) NEGATIVE mg/dL (NEGATIVE) 01/22/18 15:06 Urine Ketones NEGATIVE mg/dL (NEGATIVE) 01/22/18 15:06 Urine Blood MODERATE (NEGATIVE) H 01/22/18 15:06 Urine Nitrate NEGATIVE (NEGATIVE) 01/22/18 15:06 Urine Bilirubin NEGATIVE (NEGATIVE) 01/22/18 15:06 Urine Urobilinogen 0.2 E.U./dL (0.2 - 1.0) 01/22/18 15:06 Ur Leukocyte Esterase MODERATE (NEGATIVE) H 01/22/18 15:06 Urine RBC 5-10 /hpf (0-5) H 01/22/18 15:06 Urine WBC 25-50 /hpf (0-5) H 01/22/18 15:06 Ur Epithelial Cells FEW /lpf (FEW) 01/22/18 15:06 Urine Bacteria 3+ /hpf (NONE SEEN) H 01/22/18 15:06 Vancomycin Trough 11.5 ug/mL (5-10) H 01/24/18 07:45 Urine Opiates Screen POSITIVE (NEGATIVE) H 01/22/18 15:06 Urine Methadone Screen NEGATIVE (NEGATIVE) 01/22/18 15:06 Ur Barbiturates Screen NEGATIVE (NEGATIVE) 01/22/18 15:06 Ur Tricyclics Screen NEGATIVE (NEGATIVE) 01/22/18 15:06 Ur Phencyclidine Scrn NEGATIVE (NEGATIVE) 01/22/18 15:06 Amphetamines Screen NEGATIVE (NEGATIVE) 01/22/18 15:06 U Methamphetamines Scrn NEGATIVE (NEGATIVE) 01/22/18 15:06 U Benzodiazepines Scrn NEGATIVE (NEGATIVE) 01/22/18 15:06 U Cocaine Metab Screen NEGATIVE (NEGATIVE) 01/22/18 15:06 U Cannabinoids Screen NEGATIVE (NEGATIVE) 01/22/18 15:06 - Physical Exam Vitals and I&O: Vital Signs Temp 98.1 F 01/24/18 12:00 Pulse 71 01/24/18 12:00 Resp 18 01/24/18 12:00 BP 117/56 01/24/18 12:00 Pulse Ox 92 01/24/18 12:00 Intake & Output 01/23/18 01/24/18 01/24/18 18:59 06:59 18:59 Intake Total 2850 1460 Output Total 650 600 Balance 2200 860 Weight (lbs) 97.522 kg 99.79 kg Intake: Intake, IV Amount 1600 1100 Piperacillin Sodium/ 100 100 Tazobact 3.375 gm In Sodium Chloride 0.9% 50 ml @ 100 mls/hr IV Q6HR [facility] Rx#:[id number] Sodium Chloride 0.45% 1, 1000 1000 000 ml @ 75 mls/hr IV . [id number] [facility] Rx#:[id number] Vancomycin HCl 1.5 gm In 500 Sodium Chloride 0.9% 500 ml @ 250 mls/hr IV Q24HR@ 0900 [facility] Rx#:[id number] Oral 1250 360 Output: Urine 650 600 Other: # Bowel Movements 1 1 Stool Characteristics Formed Formed Formed Weight Source Bedscale Bedscale Active Medications: Current Medications Acetaminophen (Tylenol) 650 mg PO Q4H PRN PRN Reason: temp >100.4 or mild pain Last Admin: 01/24/18 08:22 Dose: 650 mg Acetaminophen/Hydrocodone Bitart ([place] 5mg/325mg) 1 tab PO Q4H PRN PRN Reason: Pain (Moderate) Stop: 03/23/18 18:56 Al Hydrox/Mg Hydrox/Simethicone (Maalox) 30 ml PO Q6H PRN PRN Reason: Indigestion Albuterol/Ipratropium (Duoneb Neb) 3 ml HHN Q4HRT PRN PRN Reason: Shortness of Breath Stop: 03/23/18 18:56 Aspirin (Aspirin Chewable) 81 mg PO DAILY [facility] Stop: 03/24/18 08:59 Last Admin: 01/24/18 08:22 Dose: Not Given Atorvastatin Calcium (Lipitor) 10 mg PO HS [facility]; Protocol Stop: 03/23/18 20:59 Last Admin: 01/23/18 20:38 Dose: 10 mg Bisacodyl (Dulcolax 10 Mg Supp) 10 mg RC DAILY PRN PRN Reason: IF MOM INEFFECTIVE Stop: 03/23/18 18:56 Carbamide Peroxide (Debrox Otic Drops) 5 drop RIGHT EAR BID [facility] Stop: 01/27/18 08:59 Last Admin: 01/24/18 08:32 Dose: Not Given Docusate Sodium (Colace) 100 mg PO HS PRN PRN Reason: Constipation Stop: 03/23/18 18:56 Gabapentin (Neurontin) 300 mg PO Q8HR [facility] Stop: 03/23/18 20:59 Last Admin: 01/24/18 12:48 Dose: 300 mg Hydralazine HCl (Apresoline) 50 mg PO TID [facility] Stop: 03/23/18 20:59 Last Admin: 01/24/18 08:22 Dose: 50 mg Sodium Chloride (Nacl 0.45%) 1,000 mls @ 75 mls/hr IV .[id number] [facility] Stop: 03/23/18 19:59 Last Admin: 01/24/18 04:03 Dose: 75 mls/hr Piperacillin Sod/Tazobactam (Sod 3.375 gm/ Sodium Chloride) 50 mls @ 100 mls/ hr IV Q6HR [facility] Stop: 03/23/18 17:59 Last Admin: 01/24/18 12:53 Dose: 100 mls/hr Vancomycin HCl 1.5 gm/ Sodium (Chloride) 500 mls @ 250 mls/hr IV Q24HR@0900 [facility] Stop: 03/24/18 09:59 Last Admin: 01/24/18 08:31 Dose: 250 mls/hr Insulin Aspart (Novolog Insulin Sliding Scale) 0 units SUBQ ACHS [facility]; Protocol Stop: 03/23/18 20:59 Last Admin: 01/24/18 12:49 Dose: Not Given Insulin Detemir (Levemir Insulin) 20 units SUBQ Q12HR [facility] Stop: 03/23/18 20:59 Last Admin: 01/24/18 08:34 Dose: Not Given Isosorbide Mononitrate (Imdur) 30 mg PO HS [facility] Stop: 03/23/18 20:59 Last Admin: 01/23/18 20:38 Dose: 30 mg Lidocaine HCl (Xylocaine 2% Gel) 5 ml TP Q4H PRN PRN Reason: PAIN MANAGEMENT Stop: 03/23/18 18:56 Magnesium Hydroxide (Milk Of Magnesia) 30 ml PO DAILY PRN PRN Reason: IF NO BM IN TWO DAYS Stop: 03/23/18 18:56 Last Admin: 01/23/18 16:41 Dose: 30 ml Metoprolol Succinate (Toprol Xl) 25 mg PO DAILY [facility] Stop: 03/24/18 08:59 Last Admin: 01/24/18 08:24 Dose: 25 mg Miscellaneous (Vancomycin Iv Per Pharmacy) 1 ea PRN PRN PRN Reason: PROTOCOL Stop: 03/23/18 15:20 Miscellaneous (Zosyn Iv Per Pharmacy) 1 ea PRN PRN PRN Reason: PROTOCOL Stop: 03/23/18 15:21 Miscellaneous (Melatonin [Melatonin]) 3 mg PO HS [facility] Stop: 03/23/18 20:59 Miscellaneous (Clinical Monitoring) 1 ea DAILY PRN PRN Reason: RENAL Stop: 03/24/18 11:16 Nitroglycerin (Nitro-Bid) 1 inch TP BID [facility] Stop: 03/24/18 08:59 Last Admin: 01/24/18 08:25 Dose: 1 inch Pantoprazole Sodium (Protonix) 40 mg PO QDAC [facility] Stop: 03/24/18 07:29 Last Admin: 01/24/18 06:43 Dose: 40 mg Sodium Phosphate (Fleet Enema) 135 ml RC DAILY PRN PRN Reason: IF MOM/DULCOLAX INEFFECTIVE Stop: 03/23/18 18:56 Terbinafine HCl (Lamisil 1% Cream) 0 appl TP DAILY [facility] Stop: 03/24/18 08:59 Last Admin: 01/24/18 08:31 Dose: 1 appl Tobramycin/Dexamethasone (Tobradex 0.1%-0.3% Ophth Susp 2.5ml) 2 drop LEFT EYE TID [facility] Stop: 03/23/18 20:59 Last Admin: 01/24/18 08:32 Dose: 2 drop General: no acute distress, well developed, well nourished HEENT: atraumatic, normocephalic, PERRLA Neck: supple, no thyromegaly Cardiovascular: S1S2, regular Lungs: clear to auscultation bilaterally, clear to percussion Abdomen: soft, no tender, no distended Extremities: no cyanosis, no clubbing Neurological: awake, alert, oriented Infectious Disease Assmt/Plan - Problem List Patient Problems: All Active Problems INCREASED LETHARGY WITH FEVER (Acute) - Assessment Assessment: 1. UTI. 2. RLL pneumonia. 3. Respiratory failure. 4. Dementia. 5. DM2 6. HTN. 7. Tinea corporis/pedis - Plan Plan: Continue Lamisil. Change Zosyn to Cipro.
--- NOTE | 2018-01-24 16:49 | Internal Medicine Prog Note ---
Internal Medicine Subjective - Subjective Patient is:: awake, arousable Patient Complaints of:: congestion Per staff patient has:: no adverse event Internal Medicine Objective - Results Result Diagrams: 01/23/18 05:20 01/24/18 07:45 Recent Labs: Laboratory Last Values WBC 12.6 Th/cmm (4.8-10.8) H 01/23/18 05:20 RBC 3.02 Mil/cmm (3.80-5.80) L 01/23/18 05:20 Hgb 8.9 gm/dL (12-16) L 01/23/18 05:20 Hct 26.0 % (41.0-60) L 01/23/18 05:20 MCV 86.3 fl (80-99) 01/23/18 05:20 MCH 29.4 pg (27.0-31.0) 01/23/18 05:20 MCHC Differential 34.1 pg (28.0-36.0) 01/23/18 05:20 RDW 13.6 % (11.5-20.0) 01/23/18 05:20 Plt Count 285 Th/cmm (150-400) 01/23/18 05:20 MPV 7.9 fl 01/23/18 05:20 Neutrophils % 67.1 % (40.0-80.0) 01/23/18 05:20 Lymphocytes % 18.1 % (20.0-50.0) L 01/23/18 05:20 Monocytes % 13.7 % (2.0-10.0) H 01/23/18 05:20 Eosinophils % 0.8 % (0.0-5.0) 01/23/18 05:20 Basophils % 0.3 % (0.0-2.0) 01/23/18 05:20 Sodium 134 mEq/L (136-145) L 01/24/18 07:45 Potassium 4.6 mEq/L (3.5-5.1) 01/24/18 07:45 Chloride 104 mEq/L (98-107) 01/24/18 07:45 Carbon Dioxide 23.4 mEq/L (21.0-31.0) 01/24/18 07:45 Anion Gap 11.2 (7.0-16.0) 01/24/18 07:45 BUN 41 mg/dL (7-25) H 01/24/18 07:45 Creatinine 2.2 mg/dL (0.7-1.3) H 01/24/18 07:45 Est GFR ( Amer) 38.8 ml/min (>90) 01/24/18 07:45 Est GFR (Non-Af Amer) 32.1 ml/min 01/24/18 07:45 BUN/Creatinine Ratio 18.6 01/24/18 07:45 Glucose 99 mg/dL (70-105) 01/24/18 07:45 POC Glucose 127 MG/DL (70 - 105) H 01/24/18 11:28 Whole Bld Lactic Acid 0.70 mmol/L (0.60-1.99) 01/22/18 12:45 Calcium 8.3 mg/dL (8.6-10.3) L 01/24/18 07:45 Phosphorus 3.6 mg/dL (2.5-5.0) 01/22/18 12:45 Magnesium 2.2 mg/dL (1.9-2.7) 01/22/18 12:45 Total Bilirubin 0.7 mg/dL (0.3-1.0) 01/23/18 05:20 AST 22 U/L (13-39) 01/23/18 05:20 ALT 19 U/L (7-52) 01/23/18 05:20 Alkaline Phosphatase 90 U/L (34-104) 01/23/18 05:20 Troponin I 0.04 ng/mL (0.01-0.05) 01/22/18 12:45 Total Protein 6.1 gm/dL (6.0-8.3) 01/23/18 05:20 Albumin 3.2 gm/dL (4.2-5.5) L 01/23/18 05:20 Globulin 2.9 gm/dL 01/23/18 05:20 Albumin/Globulin Ratio 1.1 (1.0-1.8) 01/23/18 05:20 TSH 0.22 uIU/ml (0.34-5.60) L 01/22/18 12:45 Urine Source CATH 01/22/18 15:06 Urine Color YELLOW 01/22/18 15:06 Urine Clarity HAZY (CLEAR) 01/22/18 15:06 Urine pH 7.0 (4.6 - 8.0) 01/22/18 15:06 Ur Specific [place] 1.020 (1.005-1.030) 01/22/18 15:06 Urine Protein >=300 mg/dL (NEGATIVE) 01/22/18 15:06 Urine Glucose (UA) NEGATIVE mg/dL (NEGATIVE) 01/22/18 15:06 Urine Ketones NEGATIVE mg/dL (NEGATIVE) 01/22/18 15:06 Urine Blood MODERATE (NEGATIVE) H 01/22/18 15:06 Urine Nitrate NEGATIVE (NEGATIVE) 01/22/18 15:06 Urine Bilirubin NEGATIVE (NEGATIVE) 01/22/18 15:06 Urine Urobilinogen 0.2 E.U./dL (0.2 - 1.0) 01/22/18 15:06 Ur Leukocyte Esterase MODERATE (NEGATIVE) H 01/22/18 15:06 Urine RBC 5-10 /hpf (0-5) H 01/22/18 15:06 Urine WBC 25-50 /hpf (0-5) H 01/22/18 15:06 Ur Epithelial Cells FEW /lpf (FEW) 01/22/18 15:06 Urine Bacteria 3+ /hpf (NONE SEEN) H 01/22/18 15:06 Vancomycin Trough 11.5 ug/mL (5-10) H 01/24/18 07:45 Urine Opiates Screen POSITIVE (NEGATIVE) H 01/22/18 15:06 Urine Methadone Screen NEGATIVE (NEGATIVE) 01/22/18 15:06 Ur Barbiturates Screen NEGATIVE (NEGATIVE) 01/22/18 15:06 Ur Tricyclics Screen NEGATIVE (NEGATIVE) 01/22/18 15:06 Ur Phencyclidine Scrn NEGATIVE (NEGATIVE) 01/22/18 15:06 Amphetamines Screen NEGATIVE (NEGATIVE) 01/22/18 15:06 U Methamphetamines Scrn NEGATIVE (NEGATIVE) 01/22/18 15:06 U Benzodiazepines Scrn NEGATIVE (NEGATIVE) 01/22/18 15:06 U Cocaine Metab Screen NEGATIVE (NEGATIVE) 01/22/18 15:06 U Cannabinoids Screen NEGATIVE (NEGATIVE) 01/22/18 15:06 - Physical Exam Vitals and I&O: Vital Signs Temp 98.2 F 01/24/18 14:59 Pulse 68 01/24/18 14:59 Resp 17 01/24/18 14:59 BP 120/60 01/24/18 14:59 Pulse Ox 93 01/24/18 14:59 Intake & Output 01/23/18 01/24/18 01/24/18 18:59 06:59 18:59 Intake Total 2850 1460 Output Total 650 600 Balance 2200 860 Weight (lbs) 97.522 kg 99.79 kg Intake: Intake, IV Amount 1600 1100 Piperacillin Sodium/ 100 100 Tazobact 3.375 gm In Sodium Chloride 0.9% 50 ml @ 100 mls/hr IV Q6HR [facility] Rx#:[id number] Sodium Chloride 0.45% 1, 1000 1000 000 ml @ 75 mls/hr IV . [id number] [facility] Rx#:[id number] Vancomycin HCl 1.5 gm In 500 Sodium Chloride 0.9% 500 ml @ 250 mls/hr IV Q24HR@ 0900 [facility] Rx#:[id number] Oral 1250 360 Output: Urine 650 600 Other: # Bowel Movements 1 1 Stool Characteristics Formed Formed Formed Weight Source Bedscale Bedscale Active Medications: Current Medications Acetaminophen (Tylenol) 650 mg PO Q4H PRN PRN Reason: temp >100.4 or mild pain Last Admin: 01/24/18 08:22 Dose: 650 mg Acetaminophen/Hydrocodone Bitart ([place] 5mg/325mg) 1 tab PO Q4H PRN PRN Reason: Pain (Moderate) Stop: 03/23/18 18:56 Al Hydrox/Mg Hydrox/Simethicone (Maalox) 30 ml PO Q6H PRN PRN Reason: Indigestion Albuterol/Ipratropium (Duoneb Neb) 3 ml HHN Q4HRT PRN PRN Reason: Shortness of Breath Stop: 03/23/18 18:56 Aspirin (Aspirin Chewable) 81 mg PO DAILY [facility] Stop: 03/24/18 08:59 Last Admin: 01/24/18 08:22 Dose: Not Given Atorvastatin Calcium (Lipitor) 10 mg PO HS [facility]; Protocol Stop: 03/23/18 20:59 Last Admin: 01/23/18 20:38 Dose: 10 mg Bisacodyl (Dulcolax 10 Mg Supp) 10 mg RC DAILY PRN PRN Reason: IF MOM INEFFECTIVE Stop: 03/23/18 18:56 Carbamide Peroxide (Debrox Otic Drops) 5 drop RIGHT EAR BID [facility] Stop: 01/27/18 08:59 Last Admin: 01/24/18 08:32 Dose: Not Given Docusate Sodium (Colace) 100 mg PO HS PRN PRN Reason: Constipation Stop: 03/23/18 18:56 Gabapentin (Neurontin) 300 mg PO Q8HR [facility] Stop: 03/23/18 20:59 Last Admin: 01/24/18 12:48 Dose: 300 mg Hydralazine HCl (Apresoline) 50 mg PO TID [facility] Stop: 03/23/18 20:59 Last Admin: 01/24/18 14:52 Dose: Not Given Sodium Chloride (Nacl 0.45%) 1,000 mls @ 75 mls/hr IV .[id number] [facility] Stop: 03/23/18 19:59 Last Admin: 01/24/18 04:03 Dose: 75 mls/hr Piperacillin Sod/Tazobactam (Sod 3.375 gm/ Sodium Chloride) 50 mls @ 100 mls/ hr IV Q6HR [facility] Stop: 03/23/18 17:59 Last Admin: 01/24/18 12:53 Dose: 100 mls/hr Vancomycin HCl 1.5 gm/ Sodium (Chloride) 500 mls @ 250 mls/hr IV Q24HR@0900 [facility] Stop: 03/24/18 09:59 Last Admin: 01/24/18 08:31 Dose: 250 mls/hr Ciprofloxacin (Cipro 400mg Premix Pb) 400 mg in 200 mls @ 200 mls/hr IV Q12HR [facility] Stop: 03/25/18 20:59 Insulin Aspart (Novolog Insulin Sliding Scale) 0 units SUBQ ACHS [facility]; Protocol Stop: 03/23/18 20:59 Last Admin: 01/24/18 12:49 Dose: Not Given Insulin Detemir (Levemir Insulin) 20 units SUBQ Q12HR [facility] Stop: 03/23/18 20:59 Last Admin: 01/24/18 08:34 Dose: Not Given Isosorbide Mononitrate (Imdur) 30 mg PO HS [facility] Stop: 03/23/18 20:59 Last Admin: 01/23/18 20:38 Dose: 30 mg Lidocaine HCl (Xylocaine 2% Gel) 5 ml TP Q4H PRN PRN Reason: PAIN MANAGEMENT Stop: 03/23/18 18:56 Magnesium Hydroxide (Milk Of Magnesia) 30 ml PO DAILY PRN PRN Reason: IF NO BM IN TWO DAYS Stop: 03/23/18 18:56 Last Admin: 01/23/18 16:41 Dose: 30 ml Metoprolol Succinate (Toprol Xl) 25 mg PO DAILY [facility] Stop: 03/24/18 08:59 Last Admin: 01/24/18 08:24 Dose: 25 mg Miscellaneous (Vancomycin Iv Per Pharmacy) 1 [facility] PRN PRN PRN Reason: PROTOCOL Stop: 03/23/18 15:20 Miscellaneous (Zosyn Iv Per Pharmacy) 1 [facility] PRN PRN PRN Reason: PROTOCOL Stop: 03/23/18 15:21 Miscellaneous (Melatonin [Melatonin]) 3 mg PO HS [facility] Stop: 03/23/18 20:59 Miscellaneous (Clinical Monitoring) 1 [facility] DAILY PRN PRN Reason: RENAL Stop: 03/24/18 11:16 Nitroglycerin (Nitro-Bid) 1 inch TP BID [facility] Stop: 03/24/18 08:59 Last Admin: 01/24/18 08:25 Dose: 1 inch Pantoprazole Sodium (Protonix) 40 mg PO QDAC [facility] Stop: 03/24/18 07:29 Last Admin: 01/24/18 06:43 Dose: 40 mg Sodium Phosphate (Fleet Enema) 135 ml RC DAILY PRN PRN Reason: IF MOM/DULCOLAX INEFFECTIVE Stop: 03/23/18 18:56 Terbinafine HCl (Lamisil 1% Cream) 0 appl TP DAILY [facility] Stop: 03/24/18 08:59 Last Admin: 01/24/18 08:31 Dose: 1 appl Tobramycin/Dexamethasone (Tobradex 0.1%-0.3% Ophth Susp 2.5ml) 2 drop LEFT EYE TID [facility] Stop: 03/23/18 20:59 Last Admin: 01/24/18 14:58 Dose: Not Given General: weak, congested HEENT: NC/AT Neck: Supple Lungs: ronchi Cardiovascular: RRR Abdomen: soft Neurological: other (confused) Internal Medicine Assmt/Plan - Assessment Assessment: pnumonia uti suprapubic cath dememtia
[2018-01-24] MEDS: Ciprofloxacin 400mg Premix PB 400 MG/200 ML BAG IV SCH (20:14)
[2018-01-24] MEDS: Atorvastatin Calcium 10 MG TAB PO SCH (20:17)
[2018-01-25] MEDS: Sodium Chloride 0.45% 1,000 ML IV SCH (01:54)
[2018-01-25] MEDS: Pantoprazole 40 mg EC Tab PO SCH (06:55)
--- NOTE | 2018-01-25 08:25 | Diagnostic Imaging Report ---
Exam: Chest x-ray HISTORY: Shortness of breath. Findings: Frontal examination of the chest upright reviewed and compared to prior study day earlier demonstrates a mild congestive heart failure changes bilaterally. Mediastinal structures midline the heart is not enlarged. The costophrenic angles are clear. Bony thorax intact. IMPRESSION: Mild congestive heart failure changes. Decrease in previously described right basilar infiltrate.
[2018-01-25] MEDS: INSULIN ASPART SLIDING SCALE 100 UNITS/ML UNIT SUBQ SCH ×4 (08:28→17:52)
[2018-01-25 08:37] LABS: % BASOPHILS 0.8 % (0.0-2.0); % EOSINOPHILS 11.6 % (0.0-5.0); % MONOCYTES 11.6 % (2.0-10.0); BASOPHILE ABSOLUTE 0.1 Th/cumm (0-0.2); EOSINOPHILE ABSOLUTE 0.8 Th/cmm (0.1-0.4); HEMOGLOBIN 9.3 gm/dL (12-16); LYMPHOCYTE ABSOLUTE 1.2 Th/cmm (1.5-3.0); MEAN CELL VOLUME 85.7 fl (80-99); MEAN CORPUSCULAR HEMOGLOBIN 28.3 pg (27.0-31.0); MEAN PLATELET VOLUME 7.6 fl; MONOCYTE ABSOLUTE 0.8 Th/cmm (0.3-1.0); NEUTROPHILE ABSOLUTE 4.1 Th/cmm (1.8-8.0); PLATELET COUNT 364 Th/cmm (150-400); RED BLOOD COUNT 3.27 Mil/cmm (3.80-5.80); RED CELL DISTRIBUTION WIDTH 14.4 % (11.5-20.0)
[2018-01-25] MEDS: Ciprofloxacin 400mg Premix PB 400 MG/200 ML BAG IV SCH (08:45)
[2018-01-25] MEDS: Aspirin 81mg Chewable Tab PO SCH (08:50)
[2018-01-25] MEDS: Multivitamin w/ Minerals Tab PO SCH (08:51)
[2018-01-25] MEDS: Dexamethasone/Tobramycin Ophth Susp 2.5 mL Bottle LEFT EYE SCH ×2 (08:51→13:12)
[2018-01-25] MEDS: Carbamide Peroxide Otic Soln 15 mL Bottle RIGHT EAR SCH (08:54)
[2018-01-25] MEDS: TERBINAFINE 1% TP SCH (08:54)
[2018-01-25 08:57] LABS: ANION GAP 12.4 (7.0-16.0); CALCIUM SERUM 8.7 mg/dL (8.6-10.3); CARBON DIOXIDE 23.2 mEq/L (21.0-31.0); CREATININE - SERUM 1.9 mg/dL (0.7-1.3); POTASSIUM SERUM 4.6 mEq/L (3.5-5.1)
[2018-01-25] MEDS: Insulin Detemir 100 units/mL 10mL Vial SUBQ SCH (09:01)
[2018-01-25] MEDS: Vancomycin HCl 1.5 GM in Sodium Chloride 0.9% 500 ML IV SCH (10:01)
[2018-01-25] MEDS: NITROGLYCERIN OINT 2% 1 INCH PACKET TP SCH (10:02)
--- NOTE | 2018-01-25 14:54 | Internal Medicine Prog Note ---
Internal Medicine Subjective - Subjective Patient is:: awake, arousable, other (confused) Patient Complaints of:: congestion Per staff patient has:: no adverse event Internal Medicine Objective - Results Result Diagrams: 01/25/18 08:00 01/25/18 08:00 Recent Labs: Laboratory Last Values WBC 7.0 Th/cmm (4.8-10.8) 01/25/18 08:00 RBC 3.27 Mil/cmm (3.80-5.80) L 01/25/18 08:00 Hgb 9.3 gm/dL (12-16) L 01/25/18 08:00 Hct 28.0 % (41.0-60) L 01/25/18 08:00 MCV 85.7 fl (80-99) 01/25/18 08:00 MCH 28.3 pg (27.0-31.0) 01/25/18 08:00 MCHC Differential 33.0 pg (28.0-36.0) 01/25/18 08:00 RDW 14.4 % (11.5-20.0) 01/25/18 08:00 Plt Count 364 Th/cmm (150-400) 01/25/18 08:00 MPV 7.6 fl 01/25/18 08:00 Neutrophils % 59.0 % (40.0-80.0) 01/25/18 08:00 Lymphocytes % 17.0 % (20.0-50.0) L 01/25/18 08:00 Monocytes % 11.6 % (2.0-10.0) H 01/25/18 08:00 Eosinophils % 11.6 % (0.0-5.0) H 01/25/18 08:00 Basophils % 0.8 % (0.0-2.0) 01/25/18 08:00 Sodium 136 mEq/L (136-145) 01/25/18 08:00 Potassium 4.6 mEq/L (3.5-5.1) 01/25/18 08:00 Chloride 105 mEq/L (98-107) 01/25/18 08:00 Carbon Dioxide 23.2 mEq/L (21.0-31.0) 01/25/18 08:00 Anion Gap 12.4 (7.0-16.0) 01/25/18 08:00 BUN 32 mg/dL (7-25) H 01/25/18 08:00 Creatinine 1.9 mg/dL (0.7-1.3) H 01/25/18 08:00 Est GFR ( Amer) 46.0 ml/min (>90) 01/25/18 08:00 Est GFR (Non-Af Amer) 38.0 ml/min 01/25/18 08:00 BUN/Creatinine Ratio 16.8 01/25/18 08:00 Glucose 190 mg/dL (70-105) H 01/25/18 08:00 POC Glucose 177 MG/DL (70 - 105) H 01/25/18 12:18 Whole Bld Lactic Acid 0.70 mmol/L (0.60-1.99) 01/22/18 12:45 Calcium 8.7 mg/dL (8.6-10.3) 01/25/18 08:00 Phosphorus 3.6 mg/dL (2.5-5.0) 01/22/18 12:45 Magnesium 2.2 mg/dL (1.9-2.7) 01/22/18 12:45 Total Bilirubin 0.7 mg/dL (0.3-1.0) 01/23/18 05:20 AST 22 U/L (13-39) 01/23/18 05:20 ALT 19 U/L (7-52) 01/23/18 05:20 Alkaline Phosphatase 90 U/L (34-104) 01/23/18 05:20 Troponin I 0.04 ng/mL (0.01-0.05) 01/22/18 12:45 Total Protein 6.1 gm/dL (6.0-8.3) 01/23/18 05:20 Albumin 3.2 gm/dL (4.2-5.5) L 01/23/18 05:20 Globulin 2.9 gm/dL 01/23/18 05:20 Albumin/Globulin Ratio 1.1 (1.0-1.8) 01/23/18 05:20 TSH 0.22 uIU/ml (0.34-5.60) L 01/22/18 12:45 Urine Source CATH 01/22/18 15:06 Urine Color YELLOW 01/22/18 15:06 Urine Clarity HAZY (CLEAR) 01/22/18 15:06 Urine pH 7.0 (4.6 - 8.0) 01/22/18 15:06 Ur Specific [place] 1.020 (1.005-1.030) 01/22/18 15:06 Urine Protein >=300 mg/dL (NEGATIVE) 01/22/18 15:06 Urine Glucose (UA) NEGATIVE mg/dL (NEGATIVE) 01/22/18 15:06 Urine Ketones NEGATIVE mg/dL (NEGATIVE) 01/22/18 15:06 Urine Blood MODERATE (NEGATIVE) H 01/22/18 15:06 Urine Nitrate NEGATIVE (NEGATIVE) 01/22/18 15:06 Urine Bilirubin NEGATIVE (NEGATIVE) 01/22/18 15:06 Urine Urobilinogen 0.2 E.U./dL (0.2 - 1.0) 01/22/18 15:06 Ur Leukocyte Esterase MODERATE (NEGATIVE) H 01/22/18 15:06 Urine RBC 5-10 /hpf (0-5) H 01/22/18 15:06 Urine WBC 25-50 /hpf (0-5) H 01/22/18 15:06 Ur Epithelial Cells FEW /lpf (FEW) 01/22/18 15:06 Urine Bacteria 3+ /hpf (NONE SEEN) H 01/22/18 15:06 Vancomycin Trough 16.5 ug/mL (5-10) H 01/25/18 08:00 Urine Opiates Screen POSITIVE (NEGATIVE) H 01/22/18 15:06 Urine Methadone Screen NEGATIVE (NEGATIVE) 01/22/18 15:06 Ur Barbiturates Screen NEGATIVE (NEGATIVE) 01/22/18 15:06 Ur Tricyclics Screen NEGATIVE (NEGATIVE) 01/22/18 15:06 Ur Phencyclidine Scrn NEGATIVE (NEGATIVE) 01/22/18 15:06 Amphetamines Screen NEGATIVE (NEGATIVE) 01/22/18 15:06 U Methamphetamines Scrn NEGATIVE (NEGATIVE) 01/22/18 15:06 U Benzodiazepines Scrn NEGATIVE (NEGATIVE) 01/22/18 15:06 U Cocaine Metab Screen NEGATIVE (NEGATIVE) 01/22/18 15:06 U Cannabinoids Screen NEGATIVE (NEGATIVE) 01/22/18 15:06 - Physical Exam Vitals and I&O: Vital Signs Temp 97.8 F 01/25/18 11:58 Pulse 85 01/25/18 13:08 Resp 18 01/25/18 11:58 BP 145/72 01/25/18 13:08 Pulse Ox 94 01/25/18 11:58 Intake & Output 01/24/18 01/25/18 01/25/18 18:59 06:59 18:59 Intake Total 2350 540 Output Total 1500 550 Balance 850 -10 Weight (lbs) 99.7 kg 99.337 kg 99.019 kg Intake: Intake, IV Amount 1550 300 Ciprofloxacin 400mg 200 Premix PB 400 mg In 200 ml @ 200 mls/hr IV Q12HR [facility] Rx#:[id number] Piperacillin Sodium/ 50 100 Tazobact 3.375 gm In Sodium Chloride 0.9% 50 ml @ 100 mls/hr IV Q6HR [facility] Rx#:[id number] Sodium Chloride 0.45% 1, 1000 000 ml @ 75 mls/hr IV . [id number] [facility] Rx#:[id number] Vancomycin HCl 1.5 gm In 500 Sodium Chloride 0.9% 500 ml @ 250 mls/hr IV Q24HR@ 0900 [facility] Rx#:[id number] Oral 800 240 Output: Urine 1500 550 Other: # Bowel Movements 0 1 Stool Characteristics Formed Soft Soft Formed Formed Brown Brown Weight Source Bedscale Bedscale Bedscale Active Medications: Current Medications Acetaminophen (Tylenol) 650 mg PO Q4H PRN PRN Reason: temp >100.4 or mild pain Last Admin: 01/25/18 08:50 Dose: 650 mg Acetaminophen/Hydrocodone Bitart ([place] 5mg/325mg) 1 tab PO Q4H PRN PRN Reason: Pain (Moderate) Stop: 03/23/18 18:56 Al Hydrox/Mg Hydrox/Simethicone (Maalox) 30 ml PO Q6H PRN PRN Reason: Indigestion Albuterol/Ipratropium (Duoneb Neb) 3 ml HHN Q4HRT PRN PRN Reason: Shortness of Breath Stop: 03/23/18 18:56 Aspirin (Aspirin Chewable) 81 mg PO DAILY [facility] Stop: 03/24/18 08:59 Last Admin: 01/25/18 08:50 Dose: 81 mg Atorvastatin Calcium (Lipitor) 10 mg PO HS [facility]; Protocol Stop: 03/23/18 20:59 Last Admin: 01/24/18 20:17 Dose: 10 mg Bisacodyl (Dulcolax 10 Mg Supp) 10 mg RC DAILY PRN PRN Reason: IF MOM INEFFECTIVE Stop: 03/23/18 18:56 Carbamide Peroxide (Debrox Otic Drops) 5 drop RIGHT EAR BID [facility] Stop: 01/27/18 08:59 Last Admin: 01/25/18 08:54 Dose: 5 drop Docusate Sodium (Colace) 100 mg PO HS PRN PRN Reason: Constipation Stop: 03/23/18 18:56 Gabapentin (Neurontin) 300 mg PO Q8HR [facility] Stop: 03/23/18 20:59 Last Admin: 01/25/18 13:08 Dose: 300 mg Hydralazine HCl (Apresoline) 50 mg PO TID [facility] Stop: 03/23/18 20:59 Last Admin: 01/25/18 13:08 Dose: 50 mg Sodium Chloride (Nacl 0.45%) 1,000 mls @ 75 mls/hr IV .[id number] [facility] Stop: 03/23/18 19:59 Last Admin: 01/25/18 01:54 Dose: 75 mls/hr Piperacillin Sod/Tazobactam (Sod 3.375 gm/ Sodium Chloride) 50 mls @ 100 mls/ hr IV Q6HR [facility] Stop: 03/23/18 17:59 Last Admin: 01/25/18 12:53 Dose: 100 mls/hr Vancomycin HCl 1.5 gm/ Sodium (Chloride) 500 mls @ 250 mls/hr IV Q24HR@0900 [facility] Stop: 03/24/18 09:59 Last Admin: 01/25/18 10:01 Dose: 250 mls/hr Ciprofloxacin (Cipro 400mg Premix Pb) 400 mg in 200 mls @ 200 mls/hr IV Q12HR [facility] Stop: 03/25/18 20:59 Last Admin: 01/25/18 08:45 Dose: 200 mls/hr Insulin Aspart (Novolog Insulin Sliding Scale) 0 units SUBQ [facility]; Protocol Stop: 03/23/18 20:59 Last Admin: 01/25/18 12:19 Dose: Not Given Insulin Detemir (Levemir Insulin) 20 units SUBQ Q12HR [facility] Stop: 03/23/18 20:59 Last Admin: 01/25/18 09:01 Dose: 20 units Isosorbide Mononitrate (Imdur) 30 mg PO HS [facility] Stop: 03/23/18 20:59 Last Admin: 01/24/18 20:16 Dose: 30 mg Lidocaine HCl (Xylocaine 2% Gel) 5 ml TP Q4H PRN PRN Reason: PAIN MANAGEMENT Stop: 03/23/18 18:56 Magnesium Hydroxide (Milk Of Magnesia) 30 ml PO DAILY PRN PRN Reason: IF NO BM IN TWO DAYS Stop: 03/23/18 18:56 Last Admin: 01/23/18 16:41 Dose: 30 ml Metoprolol Succinate (Toprol Xl) 25 mg PO DAILY [facility] Stop: 03/24/18 08:59 Last Admin: 01/25/18 08:49 Dose: 25 mg Miscellaneous (Vancomycin Iv Per Pharmacy) 1 [facility] PRN PRN PRN Reason: PROTOCOL Stop: 03/23/18 15:20 Miscellaneous (Zosyn Iv Per Pharmacy) 1 [facility] PRN PRN PRN Reason: PROTOCOL Stop: 03/23/18 15:21 Miscellaneous (Clinical Monitoring) 1 [facility] DAILY PRN PRN Reason: RENAL Stop: 03/24/18 11:16 Nitroglycerin (Nitro-Bid) 1 inch TP BID [facility] Stop: 03/24/18 08:59 Last Admin: 01/25/18 10:02 Dose: 1 inch Pantoprazole Sodium (Protonix) 40 mg PO QDAC [facility] Stop: 03/24/18 07:29 Last Admin: 01/25/18 06:55 Dose: 40 mg Sodium Phosphate (Fleet Enema) 135 ml RC DAILY PRN PRN Reason: IF MOM/DULCOLAX INEFFECTIVE Stop: 03/23/18 18:56 Terbinafine HCl (Lamisil 1% Cream) 0 appl TP DAILY [facility] Stop: 03/24/18 08:59 Last Admin: 01/25/18 08:54 Dose: 1 appl Tobramycin/Dexamethasone (Tobradex 0.1%-0.3% Ophth Susp 2.5ml) 2 drop LEFT EYE TID [facility] Stop: 03/23/18 20:59 Last Admin: 01/25/18 13:12 Dose: 2 drop General: weak, congested HEENT: NC/AT Neck: Supple Lungs: ronchi Cardiovascular: RRR Abdomen: soft Neurological: other (confused) Internal Medicine Assmt/Plan - Assessment Assessment: pneumonia uti suprapubic cath dementia htn tinea corporis - Plan Plan: continue iv antibiotics cathertec care dc planning snf
--- NOTE | 2018-01-29 13:34 | Discharge Summary ---
DATE OF DISCHARGE: 01/25/2018 HOSPITAL COURSE: A very well-known patient to me. A 67-year-old male patient from the halfway, came to the Emergency Room because of his increasing cough and congestion. The patient was found to have bronchitis, pneumonia, and also had pus coming out of his suprapubic catheter, known to have history of diabetes and hypertension, was treated. The patient was seen by urologist and ID doctor. The patient was on IV antibiotics. FINAL DIAGNOSES: Sepsis secondary to the right lower lobe pneumonia, acute urinary infection and pus around the suprapubic catheter which was changed; history of diabetes and hypertension. The patient was in stable condition, needed several antibiotics. The patient was sent to [facility] ____ I will be following the patient. CONDITION AT THE TIME OF DISCHARGE: Stable. JOB# [id number]
== END 2018-01-25 18:10 | DRG 871 ==
LOC: ER 12:26 → TELE 15:22
PROVIDERS: ADMIT Internal Medicine; ATTEND Internal Medicine
DX: A41.9 Sepsis, unspecified organism (principal); J18.1 Lobar pneumonia, unspecified organism; J96.91 Respiratory failure, unspecified with hypoxia; N39.0 Urinary tract infection, site not specified; F03.90 Unspecified dementia, unspecified severity, without behavioral disturbance, psychotic disturbance, mood disturbance, and anxiety; N18.9 Chronic kidney disease, unspecified; I12.9 Hypertensive chronic kidney disease with stage 1 through stage 4 chronic kidney disease, or unspecified chronic kidney disease; E11.22 Type 2 diabetes mellitus with diabetic chronic kidney disease; E86.0 Dehydration; R33.9 Retention of urine, unspecified; B35.4 Tinea corporis; D64.9 Anemia, unspecified; D47.3 Essential (hemorrhagic) thrombocythemia; N31.2 Flaccid neuropathic bladder, not elsewhere classified; Z79.4 Long term (current) use of insulin; Z79.82 Long term (current) use of aspirin; Z99.81 Dependence on supplemental oxygen
CPT/HCPCS: 36415-UA; 71045-TC; 80048-TC; 80053-TC; 80202-TC; 80307; 81001-TC; 82948-90; 83036-90; 83605; 83735-TC; 84100-TC; 84443-TC; 84484-TC; 85025-TC; 87086-90; 93005; 94760; 96375; J0744; J1815; J2543; J3370; J7040; Z7610

== ENCOUNTER 2018-05-29 01:50 | Inpatient (IN) | payer MEDICARE, MEDICAID ==
[2018-05-29 03:27] LABS: URINE SOURCE CATH
[2018-05-29 03:28] LABS: % BASOPHILS 0.6 % (0.0-2.0); % EOSINOPHILS 4.2 % (0.0-5.0); % LYMPHOCYTES 14.5 % (20.0-50.0); % MONOCYTES 8.8 % (2.0-10.0); % NEUTROPHILS 71.9 % (40.0-80.0); BASOPHILE ABSOLUTE 0.1 Th/cumm (0-0.2); EOSINOPHILE ABSOLUTE 0.5 Th/cmm (0.1-0.4); HEMATOCRIT 32.2 % (41.0-60); HEMOGLOBIN 10.6 gm/dL (12-16); LYMPHOCYTE ABSOLUTE 1.9 Th/cmm (1.5-3.0); MEAN CELL VOLUME 84.9 fl (80-99); MONOCYTE ABSOLUTE 1.1 Th/cmm (0.3-1.0); NEUTROPHILE ABSOLUTE 9.2 Th/cmm (1.8-8.0); PLATELET COUNT 340 Th/cmm (150-400); RED BLOOD COUNT 3.79 Mil/cmm (3.80-5.80); RED CELL DISTRIBUTION WIDTH 14.7 % (11.5-20.0); WHITE BLOOD COUNT 12.8 Th/cmm (4.8-10.8)
[2018-05-29 03:30] LABS: URINE BILIRUBIN NEGATIVE (NEGATIVE); URINE BLOOD LARGE (NEGATIVE); URINE GLUCOSE (UA) >=1000 mg/dL (NEGATIVE); URINE KETONE NEGATIVE (NEGATIVE); URINE LEUKOCYTE ESTERASE TRACE (NEGATIVE); URINE MICROSCOPIC INDICATED? YES; URINE NITRATE NEGATIVE (NEGATIVE); URINE PROTEIN >=300 mg/dL (NEGATIVE); URINE UROBILINOGEN 0.2 E.U./dL (0.2 - 1.0)
[2018-05-29 03:32] LABS: URINE CLARITY HAZY (CLEAR); URINE COLOR YELLOW
[2018-05-29 03:34] LABS: URINE RBC 25-50 /hpf (0-5)
[2018-05-29 03:36] LABS: URINE BACTERIA MODERATE /hpf (NONE SEEN); URINE EPITHELIAL CELLS OCCASIONAL /lpf (FEW)
[2018-05-29 03:38] LABS: ANION GAP 12.4 (7.0-16.0); CARBON DIOXIDE 22.5 mEq/L (21.0-31.0); CREATININE - SERUM 1.9 mg/dL (0.7-1.3); POTASSIUM SERUM 4.9 mEq/L (3.5-5.1)
--- NOTE | 2018-05-29 07:03 | ED Physician Chart ---
ED Chief Complaint/HPI - Patient Information Date Seen:: 05/29/18 Time Seen:: 02:15 Chief Complaint:: wants bladder hole closed History of Present Illness:: per [facility] sent for sepsis right groin abcess id monday rxn ancef vibramycin white count [id number] today [id number] now [id number] pt thiks closure bladder reason Allergies:: Allergies Allergy/AdvReac Type Severity Reaction Status Date / Time No Known Allergies Allergy Verified 01/22/18 12:40 Vitals:: Vital Signs - 8 hr 05/29/18 05/29/18 05/29/18 02:05 03:40 05:22 Temp 98.3 F 98.5 F 98.3 F HR 79 80 90 RR 16 16 14 BP 175/89 168/93 153/70 O2 Sat % 97 97 96 Review:: Nurse's Note Reviewed (called [facility] for detailed info) ED Review of Systems - Review of Systems General/Constitutional: No fever Skin: No skin lesions Head: No headache Eyes: No loss of vision ENT: No earache Neck: No neck pain Cardio Vascular: No chest pain Pulmonary: No SOB, No cough GI: No nausea, No vomiting G/U: Frequency Musculoskeletal: Bone or joint pain Hematopoietic: No bruising Allergic/Immuno: No urticaria Neurological: No seizure ED Past Medical History - Past Medical History Past Medical History: HTN Family History: Diabetes Melitus Social History: No Drug Use Family Medical History - Family Member Mother History Unknown: Yes ED Physical Exam - Physical Examination General/Constitutional: No distress, Non-toxic appearing Head: Atraumatic Eyes: Lids, conjuctiva normal Skin: Nl inspection ENMT: External ears, nose nl Neck: Nontender Respiratory: Nl effort/Exclusion Cardio Vascular: RRR GI: No tenderness/rebounding/guarding Neuro/Psych: Alert/oriented Misc: Normal back ED Labs/Radiology/EKG Results - Lab Results Results: Laboratory Tests 05/29/18 05/29/18 05/29/18 02:45 02:45 03:20 WBC 12.8 H RBC 3.79 L Hgb 10.6 L Hct 32.2 L MCV 84.9 MCH 28.0 MCHC Differential 33.0 RDW 14.7 Plt Count 340 MPV 8.0 Neutrophils % 71.9 Lymphocytes % 14.5 L Monocytes % 8.8 Eosinophils % 4.2 Basophils % 0.6 Sodium 138 Potassium 4.9 Chloride 108 H Carbon Dioxide 22.5 Anion Gap 12.4 BUN 38 H Creatinine 1.9 H Est GFR ( Amer) 46.0 Est GFR (Non-Af Amer) 38.0 BUN/Creatinine Ratio 20.0 Glucose 285 H Calcium 9.0 Urine Source CATH Urine Color YELLOW Urine Clarity HAZY Urine pH 6.0 Ur Specific [place] 1.025 Urine Protein >=300 Urine Glucose (UA) >=1000 H Urine Ketones NEGATIVE Urine Blood LARGE H Urine Nitrate NEGATIVE Urine Bilirubin NEGATIVE Urine Urobilinogen 0.2 Ur Leukocyte Esterase TRACE H Urine RBC 25-50 H Urine WBC 10-25 H Ur Epithelial Cells OCCASIONAL Urine Bacteria MODERATE H ED Assessment - Assessment General Assessment: extruded tony reinserted admitted for definitive care of urological condition by followinf md ED Septic Shock - <6hrs of presentation: Vital Signs: Vital Signs - 8 hr 05/29/18 05/29/18 05/29/18 02:05 03:40 05:22 Temp 98.3 F 98.5 F 98.3 F HR 79 80 90 RR 16 16 14 BP 175/89 168/93 153/70 O2 Sat % 97 97 96
[2018-05-29] MEDS ORDERED: Albuterol/Ipratropium Neb 3 ML AERS HHN PRN (09:16)
[2018-05-29] MEDS ORDERED: Lidocaine 2% Gel 5 mL TP PRN (09:16)
[2018-05-29] MEDS ORDERED: Magnesium Hydroxide (MOM) 30 mL UDC PO PRN (09:16)
[2018-05-29] MEDS ORDERED: Hydrocodone/APAP 5mg/325mg Tab PO PRN (09:16)
[2018-05-29] MEDS ORDERED: Maalox 30 mL Cup PO PRN (09:16)
--- NOTE | 2018-05-29 09:17 | Diagnostic Imaging Report ---
Exam: Ultrasound exam right groin area HISTORY: Abscess right groin Findings: Real-time ultrasound examination of the right groin area demonstrates no evidence for abscess formation. There is no evidence for hernia. IMPRESSION: Unremarkable examination right groin area.
--- NOTE | 2018-05-29 09:19 | Diagnostic Imaging Report ---
Exam: CT examination of the pelvis HISTORY: Abscess right groin Total DLP equals 545 CTDI equals 11.2 Findings: Multiple contiguous thin section of the pelvis obtained from lower abdomen to the mid thigh area. The study was performed without administration of oral or intravenous contrast material The study demonstrates suprapubic catheter entering the urinary bladder. Urinary bladder wall thickening with the perivesicular fat stranding. The findings may be related to cystitis. Prostate gland is intact. There is no evidence of abscess formation or abnormal fluid collection. A fat-containing right inguinal hernia is noted. Bony structures intact. Vascular calcifications are noted. IMPRESSION : essentially unremarkable examination over the pelvis, no evidence for abscess formation.
[2018-05-29 09:51] VITALS: BP 170/81
[2018-05-29] MEDS: Sodium Chloride 0.45% 1,000 ML IV SCH ×2 (10:35→23:16)
[2018-05-29] MEDS ORDERED: INSULIN HUMAN REGULAR 100 UNITS/ML UNIT SUBQ SCH (11:30)
[2018-05-29] MEDS: Ipratropium Neb 0.5 mg/2.5 mL UD HHN SCH ×3 (11:42→19:46)
[2018-05-29] MEDS: Albuterol Nebulizer 2.5mg/3mL HHN SCH ×3 (11:42→19:39)
--- NOTE | 2018-05-29 14:02 | History & Physical ---
ADMIT DATE: 05/29/2018 CHIEF COMPLAINT: Present for Current presentation is pelvic pain, question of abscess, elevated white count. HISTORY OF PRESENT ILLNESS: This is an unfortunate 67-year-old patient male with history of suprapubic catheter secondary to urinary retention, diabetes, hypertension and obesity; general debility, admitted from nursing facility secondary to white count of 20,000. The patient also complained of some pelvic discomfort. The patient was being ruled out for abscess and admitted for further management. PAST MEDICAL HISTORY: As mentioned in history of present illness. PAST SURGICAL HISTORY: Left neck surgery as well as several catheter placement. ALLERGIES: No known allergies. MEDICATIONS: Neosporin, Tylenol, aspirin, atorvastatin, bisacodyl, see him bring his eyedrops for crash, Colace, gabapentin, hydralazine, Fenton, insulin, Lantus, Levemir shows sinus care and they were lidocaine, magnesium, methazolamide metoprolol, pantoprazole. Travatan. FAMILY HISTORY: Noncontributory. SOCIAL HISTORY: The patient is a smoker and drunk when he was younger. 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 The contractions. The patient is with 6 children. REVIEW OF SYSTEMS: GENERAL: Complains not feeling well, fever in the last 3 days, worse at the bedside. HEAD, EYES, EARS, NOSE, AND THROAT: The patient with blurred vision times a day, COPD: Asthma, hypertension. ABDOMEN: No nausea, vomiting or pain. : As mentioned in history of present illness. NEUROLOGIC: No headache, seizure. The patient is disabled physically according to the patient. PHYSICAL EXAMINATION: VITAL SIGNS: Blood pressure 150/85, respiration 20, pulse 79, temperature 98.52. GENERAL: Elderly male, morbidly obese. NECK: Supple. No mass. LUNGS: Equal breath sounds, otherwise clear to auscultation. HEART: Regular rate and rhythm with a systolic ejection murmur. ABDOMEN: Soft, globular, positive bowel sounds. ____ EXTREMITIES: Positive atrophy. LABORATORY DATA: WBC 12.8, hemoglobin 10.6, platelets 340. Sodium 138.9, BUN 30, creatinine 1.9, blood sugar 3-5. UA, ____ bacteria. ASSESSMENT AND PLAN: Leukocytosis, UTI, suprapubic catheter placement, diabetes, hypertension, chronic venous insufficiency, gait instability, anemia, obesity, hypercholesterolemia closely. We will continue Renal: Stable. We will titrate continue with antibiotic. We will follow the patient's ACT and ultrasound. There were ordered in the ER. Urology has been consulted. Continue IV antibiotic, continue to follow the patient's culture. Continue with current care. Follow consult and recommendations. [facility]# [id number]
[2018-05-29] MEDS ORDERED: Non-Formulary Item 1 EA (Brinzolamide/Brimonidine Tart [Simbrinza 1%-0.2% Eye Drops] 1 DRO OP SCH (17:00)
[2018-05-29] MEDS: INSULIN LISPRO SLIDING SCALE 100 UNITS/ML UNIT SUBQ SCH ×2 (17:17→23:06)
[2018-05-29] MEDS: Insulin Detemir 100 units/mL 10mL Vial SUBQ SCH (17:17)
[2018-05-29] MEDS: Atorvastatin Calcium 10 MG TAB PO SCH (23:05)
[2018-05-29] MEDS: Peg-400/Propylene Ophth Soln 5 mL Bottle LEFT EYE SCH (23:06)
[2018-05-30] MEDS: Pantoprazole 40 mg EC Tab PO SCH (06:38)
[2018-05-30] MEDS: INSULIN LISPRO SLIDING SCALE 100 UNITS/ML UNIT SUBQ SCH ×4 (06:38→20:43)
[2018-05-30] MEDS: Albuterol Nebulizer 2.5mg/3mL HHN SCH ×3 (06:53→15:00)
[2018-05-30] MEDS: Ipratropium Neb 0.5 mg/2.5 mL UD HHN SCH ×4 (06:53→19:11)
[2018-05-30 07:59] LABS: % BASOPHILS 0.8 % (0.0-2.0); % EOSINOPHILS 6.2 % (0.0-5.0); % LYMPHOCYTES 17.2 % (20.0-50.0); % MONOCYTES 11.8 % (2.0-10.0); BASOPHILE ABSOLUTE 0.1 Th/cumm (0-0.2); EOSINOPHILE ABSOLUTE 0.5 Th/cmm (0.1-0.4); HEMATOCRIT 26.7 % (41.0-60); HEMOGLOBIN 8.8 gm/dL (12-16); LYMPHOCYTE ABSOLUTE 1.4 Th/cmm (1.5-3.0); MEAN CELL VOLUME 85.5 fl (80-99); MEAN CORPUSCULAR HEMOGLOBIN 28.1 pg (27.0-31.0); MEAN CORPUSCULAR HGB CONC 32.8 pg (28.0-36.0); MEAN PLATELET VOLUME 7.5 fl; NEUTROPHILE ABSOLUTE 5.2 Th/cmm (1.8-8.0); PLATELET COUNT 306 Th/cmm (150-400); RED BLOOD COUNT 3.12 Mil/cmm (3.80-5.80); RED CELL DISTRIBUTION WIDTH 14.2 % (11.5-20.0); WHITE BLOOD COUNT 8.2 Th/cmm (4.8-10.8)
[2018-05-30 08:14] LABS: ANION GAP 10.3 (7.0-16.0); CALCIUM SERUM 8.2 mg/dL (8.6-10.3); CARBON DIOXIDE 21.4 mEq/L (21.0-31.0); CREATININE - SERUM 2.1 mg/dL (0.7-1.3); GFR NON AFRICAN-AMERICAN 33.9 ml/min; POTASSIUM SERUM 4.7 mEq/L (3.5-5.1)
[2018-05-30] MEDS: Aspirin 81mg Chewable Tab PO SCH ×2 (08:59→09:07)
[2018-05-30] MEDS ORDERED: METHAZOLAMIDE 50 MG PO SCH (09:00)
[2018-05-30] MEDS: Insulin Detemir 100 units/mL 10mL Vial SUBQ SCH ×2 (10:51→16:47)
--- NOTE | 2018-05-30 10:54 | Diagnostic Imaging Report ---
Ultrasound scrotum HISTORY: Pain COMPARISON: None Technique/procedure: Sonography of the scrotum and contents was performed in multiple planes. FINDINGS: The right testicle measures 4.1 x 2.5 x 2.9 cm and demonstrates a heterogeneous echotexture. No discrete focal lesions. The right epididymal head measures 2 cm demonstrating a cystic lesion measuring 0.8 cm with internal echoes. The left testicle measures 4.4 x 2.5 x 2.6 cm demonstrates a heterogeneous echotexture with no discrete focal lesions. The left epididymal head measures 2.5 cm. Left epididymal head cyst is noted measuring 0.7 cm. There is a trace right hydrocele. Vascular flow to the testicles is noted. IMPRESSION: Vascular flow to both testicles noted. Bilateral epididymal head cysts the largest on the right side measuring 0.8 cm with internal echoes which may represent debris. Prominent bilateral epididymal heads are noted. Inflammatory process cannot be excluded. Mildly heterogeneous testicles, inflammatory process cannot be completely excluded. Trace right hydrocele.
--- NOTE | 2018-05-30 14:07 | Internal Medicine Prog Note ---
Internal Medicine Subjective - Subjective Service Date: 05/30/18 Patient seen and examined:: with staff Patient is:: awake, verbal Per staff patient has:: no adverse event, tolerating meds Internal Medicine Objective - Results Result Diagrams: 05/30/18 07:25 05/30/18 07:25 Recent Labs: Laboratory Last Values WBC 8.2 Th/cmm (4.8-10.8) 05/30/18 07:25 RBC 3.12 Mil/cmm (3.80-5.80) L 05/30/18 07:25 Hgb 8.8 gm/dL (12-16) L 05/30/18 07:25 Hct 26.7 % (41.0-60) L 05/30/18 07:25 MCV 85.5 fl (80-99) 05/30/18 07:25 MCH 28.1 pg (27.0-31.0) 05/30/18 07:25 MCHC Differential 32.8 pg (28.0-36.0) 05/30/18 07:25 RDW 14.2 % (11.5-20.0) 05/30/18 07:25 Plt Count 306 Th/cmm (150-400) 05/30/18 07:25 MPV 7.5 fl 05/30/18 07:25 Neutrophils % 64.0 % (40.0-80.0) 05/30/18 07:25 Lymphocytes % 17.2 % (20.0-50.0) L 05/30/18 07:25 Monocytes % 11.8 % (2.0-10.0) H 05/30/18 07:25 Eosinophils % 6.2 % (0.0-5.0) H 05/30/18 07:25 Basophils % 0.8 % (0.0-2.0) 05/30/18 07:25 Sodium 139 mEq/L (136-145) 05/30/18 07:25 Potassium 4.7 mEq/L (3.5-5.1) 05/30/18 07:25 Chloride 112 mEq/L (98-107) H 05/30/18 07:25 Carbon Dioxide 21.4 mEq/L (21.0-31.0) 05/30/18 07:25 Anion Gap 10.3 (7.0-16.0) 05/30/18 07:25 BUN 40 mg/dL (7-25) H 05/30/18 07:25 Creatinine 2.1 mg/dL (0.7-1.3) H 05/30/18 07:25 Est GFR ( Amer) 41.0 ml/min (>90) 05/30/18 07:25 Est GFR (Non-Af Amer) 33.9 ml/min 05/30/18 07:25 BUN/Creatinine Ratio 19.0 05/30/18 07:25 Glucose 154 mg/dL (70-105) H 05/30/18 07:25 POC Glucose 141 MG/DL (70 - 105) H 05/30/18 11:04 Calcium 8.2 mg/dL (8.6-10.3) L 05/30/18 07:25 B-Natriuretic Peptide 70.8 pg/mL (5.0-100.0) 05/30/18 07:25 TSH 0.27 uIU/ml (0.34-5.60) L 05/30/18 07:25 Urine Source CATH 05/29/18 03:20 Urine Color YELLOW 05/29/18 03:20 Urine Clarity HAZY (CLEAR) 05/29/18 03:20 Urine pH 6.0 (4.6 - 8.0) 05/29/18 03:20 Ur Specific [place] 1.025 (1.005-1.030) 05/29/18 03:20 Urine Protein >=300 mg/dL (NEGATIVE) 05/29/18 03:20 Urine Glucose (UA) >=1000 mg/dL (NEGATIVE) H 05/29/18 03:20 Urine Ketones NEGATIVE mg/dL (NEGATIVE) 05/29/18 03:20 Urine Blood LARGE (NEGATIVE) H 05/29/18 03:20 Urine Nitrate NEGATIVE (NEGATIVE) 05/29/18 03:20 Urine Bilirubin NEGATIVE (NEGATIVE) 05/29/18 03:20 Urine Urobilinogen 0.2 E.U./dL (0.2 - 1.0) 05/29/18 03:20 Ur Leukocyte Esterase TRACE (NEGATIVE) H 05/29/18 03:20 Urine RBC 25-50 /hpf (0-5) H 05/29/18 03:20 Urine WBC 10-25 /hpf (0-5) H 05/29/18 03:20 Ur Epithelial Cells OCCASIONAL /lpf (FEW) 05/29/18 03:20 Urine Bacteria MODERATE /hpf (NONE SEEN) H 05/29/18 03:20 - Physical Exam Vitals and I&O: Vital Signs Temp 97.1 F 05/30/18 11:35 Pulse 70 05/30/18 13:56 Resp 18 05/30/18 11:35 BP 152/76 05/30/18 13:56 Pulse Ox 97 05/30/18 11:35 Intake & Output 05/29/18 05/30/18 05/30/18 18:59 06:59 18:59 Intake Total 850 1200.000 50 Output Total 800 400 Balance 50 800.000 50 Weight (lbs) 225 lb 225 lb Intake: Intake, IV Amount 50 1050.000 50 Cefepime 1 gm In Dextrose 50 50.000 50 5% 50 ml @ 100 mls/hr IV Q12H [facility] Rx#:[id number] Sodium Chloride 0.45% 1, 1000 000 ml @ 80 mls/hr IV . [id number] [facility] Rx#:[id number] Oral 800 150 Output: Urine 800 400 Other: # Bowel Movements 1 0 Weight Source Bedscale Bedscale Active Medications: Current Medications Acetaminophen (Tylenol) 650 mg PO Q4H PRN PRN Reason: Pain or Fever >101 Stop: 07/28/18 10:14 Acetaminophen/Hydrocodone Bitart ([place] 5mg/325mg) 1 tab PO Q4H PRN PRN Reason: MOD PAIN Stop: 07/28/18 09:15 Al Hydrox/Mg Hydrox/Simethicone (Maalox) 30 ml PO Q6HR PRN PRN Reason: Indigestion Stop: 07/28/18 09:15 Albuterol Sulfate (Albuterol 2.5mg/3ml Neb Ud) 2.5 mg HHN QIDRT [facility] Stop: 07/28/18 10:59 Last Admin: 05/30/18 06:53 Dose: 2.5 mg Albuterol/Ipratropium (Duoneb Neb) 3 ml HHN Q4HRT PRN PRN Reason: Shortness of Breath Stop: 07/28/18 09:15 Aspirin (Aspirin Chewable) 81 mg PO DAILY [facility] Stop: 07/29/18 08:59 Last Admin: 05/30/18 09:07 Dose: Not Given Atorvastatin Calcium (Lipitor) 10 mg PO HS [facility]; Protocol Stop: 07/28/18 20:59 Last Admin: 05/29/18 23:05 Dose: 10 mg Bisacodyl (Dulcolax 10 Mg Supp) 10 mg RC DAILY PRN PRN Reason: IF MOM INEFFECTIVE Stop: 07/28/18 09:15 Brimonidine Tartrate (Alphagan 0.2% Ophth Soln) 1 drop EACH EYE BID [facility] Stop: 07/28/18 16:59 Last Admin: 05/30/18 09:09 Dose: Not Given Docusate Sodium (Colace) 100 mg PO HS PRN PRN Reason: Constipation Stop: 07/28/18 09:15 Last Admin: 05/29/18 23:05 Dose: 100 mg Gabapentin (Neurontin) 300 mg PO Q8H [facility] Stop: 07/28/18 09:29 Last Admin: 05/30/18 08:58 Dose: 300 mg Hydralazine HCl (Apresoline) 50 mg PO TID [facility] Stop: 07/28/18 13:59 Last Admin: 05/30/18 13:56 Dose: 50 mg Cefepime HCl 1 gm/ Dextrose 50 mls @ 100 mls/hr IV Q12H [facility] Stop: 07/28/18 09:29 Last Infusion: 05/30/18 09:40 Dose: Infused Sodium Chloride (Nacl 0.45%) 1,000 mls @ 80 mls/hr IV .[id number] [facility] Stop: 07/28/18 09:29 Last Admin: 05/29/18 23:16 Dose: 80 mls/hr Insulin Detemir (Levemir Insulin) 20 units SUBQ BID [facility]; Protocol Stop: 07/28/18 16:59 Last Admin: 05/30/18 10:51 Dose: Not Given Insulin Human Lispro (Humalog Insulin Sliding Scale) 0 units SUBQ ACHS [facility]; Protocol Stop: 07/28/18 11:29 Last Admin: 05/30/18 11:06 Dose: Not Given Ipratropium [place] (Atrovent Neb 0.5mg/2.5ml) 0.5 mg HHN QIDRT [facility] Stop: 07/28/18 10:59 Last Admin: 05/30/18 06:53 Dose: 0.5 mg Isosorbide Mononitrate (Imdur) 30 mg PO HS [facility] Stop: 07/28/18 20:59 Last Admin: 05/29/18 23:05 Dose: 30 mg Latanoprost (Xalatan 0.005% Oph Soln) 1 drop LEFT EYE HS [facility] Stop: 07/28/18 20:59 Last Admin: 05/29/18 23:06 Dose: 1 drop Lidocaine HCl (Xylocaine 2% Gel) 5 ml TP Q4H PRN PRN Reason: PAIN MANAGEMENT Stop: 07/28/18 09:15 Magnesium Hydroxide (Milk Of Magnesia) 30 ml PO DAILY PRN PRN Reason: IF NO BM IN 24HRS Stop: 07/28/18 09:15 Metoprolol Succinate (Toprol Xl) 25 mg PO DAILY [facility] Stop: 07/29/18 08:59 Last Admin: 05/30/18 09:06 Dose: Not Given Miscellaneous (Brinzolamide/Brimonidine Tart [Simbrinza 1%-0.2% Eye Drops]) 1 drop OP BID [facility] Stop: 07/28/18 16:59 Miscellaneous (Methazolamide [Methazolamide]) 50 mg PO DAILY [facility] Stop: 07/29/18 08:59 Ondansetron HCl (Zofran) 4 mg IV Q8H PRN PRN Reason: Nausea / Vomiting Stop: 07/28/18 09:18 Pantoprazole Sodium (Protonix) 40 mg PO QDAC [facility] Stop: 07/29/18 07:29 Last Admin: 05/30/18 06:38 Dose: Not Given Propylene Glycol (Systane Oph Soln) 1 drop LEFT EYE HS [facility] Stop: 07/28/18 20:59 Last Admin: 05/29/18 23:06 Dose: 1 drop Timolol Maleate (Timoptic 0.5% Oph Soln) 1 drop EACH EYE BID [facility] Stop: 07/28/18 16:59 Last Admin: 05/30/18 09:09 Dose: Not Given General: weak, alert HEENT: NC/AT, PERRLA Neck: Supple Lungs: CTAB Cardiovascular: RRR, Normal S1, Normal S2, without murmur Abdomen: soft, non-tender, non-distended Extremities: excoriation Internal Medicine Assmt/Plan - Assessment Assessment: leukocytosis acute uti s/p cath dm htn chronic venous insufficiency gait instability anemia - Plan Plan: continue ivabx am labs continue current plan of care
[2018-05-30] MEDS: Atorvastatin Calcium 10 MG TAB PO SCH (20:44)
[2018-05-30] MEDS: Peg-400/Propylene Ophth Soln 5 mL Bottle LEFT EYE SCH (20:48)
[2018-05-31] MEDS: INSULIN LISPRO SLIDING SCALE 100 UNITS/ML UNIT SUBQ SCH ×4 (06:34→22:11)
[2018-05-31] MEDS: Albuterol Nebulizer 2.5mg/3mL HHN SCH ×4 (08:09→19:23)
[2018-05-31] MEDS: Ipratropium Neb 0.5 mg/2.5 mL UD HHN SCH ×4 (08:09→19:23)
[2018-05-31] MEDS: Aspirin 81mg Chewable Tab PO SCH (09:41)
[2018-05-31] MEDS: Pantoprazole 40 mg EC Tab PO SCH (09:41)
[2018-05-31] MEDS: Sodium Chloride 0.45% 1,000 ML IV SCH ×2 (10:08→22:54)
[2018-05-31] MEDS: Insulin Detemir 100 units/mL 10mL Vial SUBQ SCH ×2 (10:10→17:12)
--- NOTE | 2018-05-31 14:53 | Discharge Summary ---
DATE OF DISCHARGE: 05/31/2018 CHIEF COMPLAINT: The patient is being seen for pelvic pain, question of abscess. FINAL DIAGNOSES: 1. Leukocytosis. 2. Urinary tract infection. 3. Suprapubic catheter placement. 4. Diabetes. 5. Hypertension. 6. Obesity. 7. Chronic venous insufficiency. 8. Gait stability. 10. Anemia. 11. Obesity. 12. Hypercholesterolemia. HISTORY: This is an unfortunate 67-year-old male with history of urinary retention with superpubic catheter, diabetes, hypertension, obesity, ____ admitted from nursing facility secondary to white count of 220,000 and reported fever. There is a question of abscess. The patient admitted for further management. PHYSICAL EXAMINATION: VITAL SIGNS: Blood pressure 164/77, respirations 18, pulse 65, temperature 97.5. GENERAL: Elderly male who appears his stated age. NECK: Supple. No mass. LUNGS: Equal breath sounds, few rhonchi. HEART: Regular rate and rhythm without appreciable murmur. ABDOMEN: Soft, globular. EXTREMITIES: Positive excoriation. NEUROLOGIC: Limited. HOSPITAL COURSE: The patient was admitted to medical floor, continue oxygen with adjustments on IV antibiotic and IV hydration. There is no significant growth in the urine culture. The patient was referred to Dr. Perez for Urology. The patient no intervention to be done at this time. The patient also has followup with Urology on an outpatient and coming week. The patient has remained stable and cleared for discharge. CONDITION ON DISCHARGE: Fair. DISCHARGE INSTRUCTIONS: The patient to continue current regimen. The patient will be going with p.o. antibiotic. Case was discussed with the patient as well as his family at bedside. [facility]# [id number]
[2018-05-31] MEDS ORDERED: Amoxicillin/Clavulanate 500/125 Tab PO SCH (17:00)
[2018-05-31] MEDS ORDERED: Cefepime 1 GM in Sodium Chloride 0.9% 50 ML IV SCH (21:00)
[2018-05-31] MEDS: Atorvastatin Calcium 10 MG TAB PO SCH (22:10)
[2018-05-31] MEDS: Peg-400/Propylene Ophth Soln 5 mL Bottle LEFT EYE SCH (22:12)
[2018-06-01] MEDS: Pantoprazole 40 mg EC Tab PO SCH (06:35)
[2018-06-01] MEDS: Ipratropium Neb 0.5 mg/2.5 mL UD HHN SCH ×3 (07:38→15:36)
[2018-06-01] MEDS: Albuterol Nebulizer 2.5mg/3mL HHN SCH ×3 (07:38→15:36)
[2018-06-01] MEDS: Aspirin 81mg Chewable Tab PO SCH (09:03)
[2018-06-01] MEDS: INSULIN LISPRO SLIDING SCALE 100 UNITS/ML UNIT SUBQ SCH ×2 (09:15→12:29)
[2018-06-01] MEDS: Insulin Detemir 100 units/mL 10mL Vial SUBQ SCH (09:21)
--- NOTE | 2018-06-01 19:03 | Discharge Summary ---
DATE OF DISCHARGE: 06/01/2018 ADDENDUM CHIEF COMPLAINT: Pelvic pain, questionable abscess. REASON FOR HOLDING THE DISCHARGE: Elevated blood pressure. ASSESSMENT AND PLAN: Urinary tract infection, leukocytosis, elevated blood pressure/hypertension, diabetes, chronic renal insufficiency, gait instability, anemia, obesity, and hypercholesterolemia. HISTORY: This unfortunate 67-year-old with history of urinary retention with suprapubic catheter, admitted secondary to a question of abscess with elevated white count of 20,000. The patient admitted for further management. HOSPITAL COURSE: The patient's discharge was held secondary to elevated blood pressure, blood pressure medications were adjusted. The patient was given clonidine. The patient to be discharged to alf facility under Dr. Hoang. Antihypertensive medication will be continued to be adjusted. Continue on p.o. antibiotic. CONDITION ON DISCHARGE: Fair. DISCHARGE INSTRUCTIONS: The patient with current management. JOB# [id number]
== END 2018-06-01 18:10 | DRG 872 ==
LOC: ER 01:50 → MSI 08:40
PROVIDERS: ADMIT Internal Medicine; ATTEND Internal Medicine
DX: A41.9 Sepsis, unspecified organism (principal); N39.0 Urinary tract infection, site not specified; D64.9 Anemia, unspecified; E66.9 Obesity, unspecified; I87.2 Venous insufficiency (chronic) (peripheral); R26.9 Unspecified abnormalities of gait and mobility; R26.89 Other abnormalities of gait and mobility; E78.00 Pure hypercholesterolemia, unspecified; N18.9 Chronic kidney disease, unspecified; I12.9 Hypertensive chronic kidney disease with stage 1 through stage 4 chronic kidney disease, or unspecified chronic kidney disease; E11.22 Type 2 diabetes mellitus with diabetic chronic kidney disease; Z83.3 Family history of diabetes mellitus; Z68.34 Body mass index [BMI] 34.0-34.9, adult
CPT/HCPCS: 36415-UA; 72192-TC; 76870-TC; 76881-TC-RT; 80048-TC; 81001-TC; 82948-90; 83036-90; 83880-TC; 84443-TC; 85025-TC; 87086-90; 90779; 94640; 94760; A4217; J0360; J0692; J1815; J7613; Z7610

== ENCOUNTER 2018-08-03 22:44 | Inpatient (IN) | payer MEDICARE, MEDICAID ==
--- NOTE | 2018-08-03 23:07 | ED Physician Chart ---
ED Chief Complaint/HPI - Patient Information Date Seen:: 08/03/18 Time Seen:: 23:00 Chief Complaint:: lower abdominal discomfort History of Present Illness:: Patient had a suprapubic catheter changed this afternoon. Since then he's had sensation for urination and some lower abdominal pain. The suprapubic catheter is draining normally. Allergies:: Allergies Allergy/AdvReac Type Severity Reaction Status Date / Time No Known Allergies Allergy Verified 01/22/18 12:40 Vitals:: Vital Signs - 8 hr 08/03/18 22:52 Temp 98.3 F HR 77 RR 16 BP 125/88 O2 Sat % 98 Historian:: Patient Review:: Nurse's Note Reviewed ED Review of Systems - Review of Systems General/Constitutional: No fever, No chills, No weight loss, No weakness, No diaphoresis, No edema, No loss of appetite Skin: No skin lesions, No rash, No bruising Head: No headache, No light-headedness Eyes: No loss of vision, No pain, No diplopia ENT: No earache, No nasal drainage, No sore throat, No tinnitus Neck: No neck pain, No swelling, No thyromegaly, No stiffness, No mass noted Cardio Vascular: No chest pain, No palpitations, No PND, No orthopnea, No edema Pulmonary: No SOB, No cough, No sputum, No wheezing GI: No nausea, No vomiting, No diarrhea, Pain, No melena, No hematochezia, No constipation, No hematemesis G/U: Dysuria, No frequency, No hematuria Musculoskeletal: No bone or joint pain, No back pain, No muscle pain Endocrine: No polyuria, No polydipsia Psychiatric: No prior psych history, No depression, No anxiety, No suicidal ideation Hematopoietic: No bruising, No lymphadenopathy Allergic/Immuno: No urticaria, No angioedema Neurological: No syncope, No focal symptoms, No weakness, No paresthesia, No headache, No seizure, No dizziness, No confusion, No vertigo ED Past Medical History - Past Medical History Past Medical History: HTN, DM Family History: None Social History: Non Smoker, No Alcohol Surgical History: other Psychiatricy History: None (suprapubic catheter) Family Medical History - Family Member Mother History Unknown: Yes Ethnicity: Unknown Living Status: Unknown Hx Family Cancer: No Hx Family Coronary Artery Disease: No Hx Family Congestive Heart Failure: No Hx Family Hypertension: No Hx Family Stroke: No Hx Family Diabetes: No Hx Family Seizures: No Hx Family Dementia: No Hx Family AIDS: No Hx Family HIV: No Hx Family COPD: No Hx Family Hepatitis: No Hx Family Psychiatric Problems: No Hx Family Tuberculosis: No Father History Unknown: Yes Hx Family Cancer: Yes ED Physical Exam - Physical Examination General/Constitutional: Awake, Well-developed, well-nourished, Alert, No distress, GCS 15, Non-toxic appearing, Ambulatory Head: Atraumatic Eyes: Lids, conjuctiva normal, PERRL, EOMI Skin: Nl inspection, No rash, No skin lesions, No ecchymosis, Well hydrated, No lymphadenopathy ENMT: External ears, nose nl, Nasal exam nl Other ENMT comments:: Edentulous Neck: Nontender, Full ROM w/o pain, No JVD, No nuchal rigidity, No bruit, No mass, No stridor Respiratory: Nl effort/Exclusion, Clear to Auscultation, No Wheeze/Rhonchi/Rales Cardio Vascular: RRR, No murmur, gallop, rubs, NL S1 S2 GI: No tenderness/rebounding/guarding, No organomegaly, No hernia, Normal BS's, Nondistended, No mass/bruits, No McBurney tenderness : No CVA tenderness Extremities: No tenderness or effusion, Full ROM, normal strength in all extremities, No edema, Normal digits & nails Neuro/Psych: Alert/oriented, DTR's symmetric, Normal sensory exam, Normal motor strength, Judgement/insight normal, Mood normal, Normal gait, No focal deficits Misc: Normal back, No paraspinal tenderness ED Labs/Radiology/EKG Results - Lab Results Results: Laboratory Results WBC 10.4 Th/cmm (4.8-10.8) 08/03/18 23:20 RBC 3.75 Mil/cmm (3.80-5.80) L 08/03/18 23:20 Hgb 10.6 gm/dL (12-16) L 08/03/18 23:20 Hct 32.7 % (41.0-60) L 08/03/18 23:20 MCV 87.1 fl (80-99) 08/03/18 23:20 MCH 28.2 pg (27.0-31.0) 08/03/18 23:20 MCHC Differential 32.3 pg (28.0-36.0) 08/03/18 23:20 RDW 14.1 % (11.5-20.0) 08/03/18 23:20 Plt Count 438 Th/cmm (150-400) H 08/03/18 23:20 MPV 7.0 fl 08/03/18 23:20 Neutrophils % 62.8 % (40.0-80.0) 08/03/18 23:20 Lymphocytes % 21.5 % (20.0-50.0) 08/03/18 23:20 Monocytes % 8.9 % (2.0-10.0) 08/03/18 23:20 Eosinophils % 5.7 % (0.0-5.0) H 08/03/18 23:20 Basophils % 1.1 % (0.0-2.0) 08/03/18 23:20 Sodium 135 mEq/L (136-145) L 08/03/18 23:20 Potassium 4.0 mEq/L (3.5-5.1) 08/03/18 23:20 Chloride 107 mEq/L (98-107) 08/03/18 23:20 Carbon Dioxide 17.5 mEq/L (21.0-31.0) L 08/03/18 23:20 Anion Gap 14.5 (7.0-16.0) 08/03/18 23:20 BUN 50 mg/dL (7-25) H 08/03/18 23:20 Creatinine 2.2 mg/dL (0.7-1.3) H 08/03/18 23:20 Est GFR ( Amer) 38.7 ml/min (>90) 08/03/18 23:20 Est GFR (Non-Af Amer) 32.0 ml/min 08/03/18 23:20 BUN/Creatinine Ratio 22.7 08/03/18 23:20 Glucose 137 mg/dL (70-105) H 08/03/18 23:20 Calcium 8.7 mg/dL (8.6-10.3) 08/03/18 23:20 Urine Source CATH 08/03/18 23:18 Urine Color YELLOW 08/03/18 23:18 Urine Clarity CLOUDY (CLEAR) 08/03/18 23:18 Urine pH 5.5 (4.6 - 8.0) 08/03/18 23:18 Ur Specific [place] 1.010 (1.005-1.030) 08/03/18 23:18 Urine Protein 100 mg/dL (NEGATIVE) H 08/03/18 23:18 Urine Glucose (UA) NEGATIVE mg/dL (NEGATIVE) 08/03/18 23:18 Urine Ketones NEGATIVE mg/dL (NEGATIVE) 08/03/18 23:18 Urine Blood SMALL (NEGATIVE) H 08/03/18 23:18 Urine Nitrate NEGATIVE (NEGATIVE) 08/03/18 23:18 Urine Bilirubin NEGATIVE (NEGATIVE) 08/03/18 23:18 Urine Urobilinogen 0.2 E.U./dL (0.2 - 1.0) 08/03/18 23:18 Ur Leukocyte Esterase LARGE (NEGATIVE) H 08/03/18 23:18 Urine RBC 2-5 /hpf (0-5) H 08/03/18 23:18 Urine WBC 50-100 /hpf (0-5) H 08/03/18 23:18 Ur Epithelial Cells NONE SEEN /lpf (FEW) 08/03/18 23:18 Urine Bacteria MANY /hpf (NONE SEEN) H 08/03/18 23:18 ED Assessment - Assessment General Assessment: And the patient with a suprapubic catheter or a Lowe catheter will have pyuria. Patient does not have a fever or leukocytosis so antibiotics will be withheld at this time. I spoke to Dr. Wills and he wishes to admit the patient. ED Septic Shock - . Is Septic Shock (SBP<90, OR Lactate>4 mmol\L) present?: No - <6hrs of presentation: Vital Signs: Vital Signs - 8 hr 08/03/18 22:52 Temp 98.3 F HR 77 RR 16 BP 125/88 O2 Sat % 98 ED Reassessment (Disposition) - Reassessment Reassessment Condition:: Unchanged - Diagnosis Diagnosis:: Dysuria; abdominal pain; status post suprapubic catheter - Patient Disposition Admitted to:: Med/Surg Spoke to:: Susan Wills Admitting Medical Physician:: Susan Wills Condition at Disposition:: Stable, Unchanged
[2018-08-03 23:33] LABS: % BASOPHILS 1.1 % (0.0-2.0); % EOSINOPHILS 5.7 % (0.0-5.0); % LYMPHOCYTES 21.5 % (20.0-50.0); % MONOCYTES 8.9 % (2.0-10.0); % NEUTROPHILS 62.8 % (40.0-80.0); BASOPHILE ABSOLUTE 0.1 Th/cumm (0-0.2); EOSINOPHILE ABSOLUTE 0.6 Th/cmm (0.1-0.4); HEMATOCRIT 32.7 % (41.0-60); HEMOGLOBIN 10.6 gm/dL (12-16); LYMPHOCYTE ABSOLUTE 2.2 Th/cmm (1.5-3.0); MEAN CELL VOLUME 87.1 fl (80-99); MEAN CORPUSCULAR HEMOGLOBIN 28.2 pg (27.0-31.0); MEAN CORPUSCULAR HGB CONC 32.3 pg (28.0-36.0); MONOCYTE ABSOLUTE 0.9 Th/cmm (0.3-1.0); NEUTROPHILE ABSOLUTE 6.6 Th/cmm (1.8-8.0); PLATELET COUNT 438 Th/cmm (150-400); RED BLOOD COUNT 3.75 Mil/cmm (3.80-5.80); RED CELL DISTRIBUTION WIDTH 14.1 % (11.5-20.0); WHITE BLOOD COUNT 10.4 Th/cmm (4.8-10.8)
[2018-08-03 23:35] LABS: URINE SOURCE CATH
[2018-08-03 23:36] LABS: URINE BILIRUBIN NEGATIVE (NEGATIVE); URINE BLOOD SMALL (NEGATIVE); URINE GLUCOSE (UA) NEGATIVE (NEGATIVE); URINE KETONE NEGATIVE (NEGATIVE); URINE LEUKOCYTE ESTERASE LARGE (NEGATIVE); URINE MICROSCOPIC INDICATED? YES; URINE NITRATE NEGATIVE (NEGATIVE); URINE PH 5.5 (4.6 - 8.0); URINE PROTEIN 100 mg/dL (NEGATIVE); URINE UROBILINOGEN 0.2 E.U./dL (0.2 - 1.0)
[2018-08-03 23:44] LABS: ANION GAP 14.5 (7.0-16.0); CALCIUM SERUM 8.7 mg/dL (8.6-10.3); CARBON DIOXIDE 17.5 mEq/L (21.0-31.0); CREATININE - SERUM 2.2 mg/dL (0.7-1.3); GFR AFRICAN-AMERICAN 38.7 ml/min (>90)
[2018-08-03 23:46] LABS: URINE CLARITY CLOUDY (CLEAR); URINE COLOR YELLOW
[2018-08-03 23:48] LABS: URINE WBC 50-100 /hpf (0-5)
[2018-08-03 23:49] LABS: URINE BACTERIA MANY /hpf (NONE SEEN); URINE EPITHELIAL CELLS NONE SEEN /lpf (FEW)
[2018-08-04 11:21] VITALS: BP 161/79
[2018-08-04] MEDS ORDERED: Albuterol/Ipratropium Neb 3 ML AERS HHN PRN (14:16)
[2018-08-04] MEDS ORDERED: Hydrocodone/APAP 5mg/325mg Tab PO PRN (14:18)
[2018-08-04] MEDS ORDERED: LIDOCAINE HCL TP PRN (14:19)
[2018-08-04] MEDS: Albuterol/Ipratropium Neb 3 ML AERS HHN SCH ×2 (15:39→19:04)
[2018-08-04] MEDS ORDERED: Sodium Chloride 0.9% 1,000 ML IV SCH (16:30)
[2018-08-04] MEDS ORDERED: INSULIN DETEMIR 20 UNIT SUBQ SCH (17:00)
[2018-08-04] MEDS: cefTRIAXone 1 GM in Sodium Chloride 0.9% 50 ML IV SCH (17:40)
[2018-08-04] MEDS: Insulin Glargine 100 units/ml 10ml Vial SUBQ SCH (17:55)
[2018-08-04] MEDS ORDERED: D5-0.45NS 1,000 ML IV SCH ×2 (21:00)
[2018-08-04] MEDS ORDERED: Peg-400/Propylene Ophth Soln 5 mL Bottle LEFT EYE SCH (21:00)
[2018-08-04] MEDS: Atorvastatin Calcium 10 MG TAB PO SCH (21:32)
[2018-08-04] MEDS: INSULIN LISPRO SLIDING SCALE 100 UNITS/ML UNIT SUBQ SCH (23:54)
--- NOTE | 2018-08-05 02:26 | Consultation ---
DATE OF CONSULTATION: 08/04/2018 ATTENDING: Dr. Alexander Wills. CRIMINAL DEFENSE ATTORNEY: Markus Rai M.D. REASON FOR CONSULTATION: Worsening kidney function, electrolyte imbalance, and fluid management. HISTORY OF PRESENT ILLNESS: This is a 68-year-old male with past medical history of type 2 diabetes, who came in because of suprapubic pain. One day prior to admission, the patient had moderate replacement of his suprapubic tube. He developed suprapubic pain radiating to lower abdominal area. A few hours prior to admission, his lower abdominal pain worsened. This was associated with sensation of urinating, but there was no urine output. His suprapubic tube is draining well. He had no fever/chills, bladder spasm, nor hematuria. His white count was 10.4. He had a BUN/creatinine of 50/2.2. He denied any history of kidney failure in the past. Urinalysis was suggestive of UTI. PAST MEDICAL HISTORY: 1. Dyslipidemia. 2. Glaucoma. 3. Type 2 diabetes mellitus. 4. Diabetic neuropathy. 5. Essential hypertension. PAST SURGICAL HISTORY: Status post placement of suprapubic tube. CURRENT MEDICATIONS: He is currently on acetaminophen, albuterol/ipratropium, atorvastatin, aspirin, bisacodyl, docusate sodium, dorzolamide, gabapentin, hydralazine, hydrocodone/APAP, detemir, isosorbide mononitrate, lidocaine, magnesium hydroxide, metoprolol, methazolamide, Protonix, timolol. ALLERGIES: No known drug allergies. SOCIAL HISTORY: He had a history of smoking, but quit many years ago. No history of alcohol abuse. He is a retired on site construction superintendent. FAMILY HISTORY: Noncontributory to present illness. REVIEW OF SYSTEMS: GENERAL: He has intermittent weakness. Appetite had been fair. No fever or chills. HEENT: Denied any headaches, no dizziness. CARDIORESPIRATORY: He had no chest pain, palpitations, diaphoresis, cough, nor shortness of breath. GASTROINTESTINAL: No nausea, vomiting, cramping, melena, hematochezia, diarrhea or constipation. However, he has been complaining of lower abdominal pain after placement of a suprapubic tube. MUSCULOSKELETAL: Multiple joint arthralgias. GENITOURINARY: No history of kidney failure; however, he comes in now with acute kidney injury. He has also a sensation of urination. MUSCULOSKELETAL: Multiple joint arthralgias. NEUROPSYCH: No syncopal episode nor seizure activity. PHYSICAL EXAMINATION: GENERAL: The patient is awake, verbal, still complaining of lower abdominal pain. VITAL SIGNS: Temperature is 97.1 degrees, pulse 76, blood pressure is 115/72. SKIN: Poor turgor, warm, no rash, no jaundice appreciated. HEENT: Head normocephalic, atraumatic. Eyes: Extraocular muscles intact. Pupils equal, round, reactive to light and accommodates. Anicteric sclerae. Pale conjunctivae. Nose: Midline nasal septum. Mouth: Dry mucosa, poor dentition. NECK: Supple, no adenopathy, no thyromegaly, no bruits. Trachea palpated in the midline. CHEST AND CARDIOVASCULAR: S1, S2. No rub, murmur nor gallop appreciated. Point of maximal impulse fifth intercostal space, left midclavicular line. No abdominal or femoral bruits appreciated. LUNGS: Equal expansion. No use of accessory muscles. No supraclavicular retractions, decreased breath sounds, few rhonchi, but no rales nor wheezes appreciated. ABDOMEN: Mildly globular, soft. Positive for bowel sounds. He has some tenderness inferior to the site of suprapubic tube as well as tenderness on palpation surrounding the suprapubic tube. No erythema nor drainage at the exit site of the suprapubic tube. No lesions. GENITOURINARY: No lesions observed in penile shaft nor urethra. MUSCULOSKELETAL: Multiple joint arthralgias. RECTAL: The patient refused. NEUROLOGIC: The patient is alert, verbal, motor is 5/5. Cranial nerves 3-12 intact. Sensory intact. LABORATORY DATA: Reveal white count 10.4, hemoglobin 10.6, hematocrit 32.7, platelets 438. Sodium is 135, potassium 4, chloride 107, CO2 of 17, BUN 50, creatinine 2.2, glucose 137, calcium 8.7. IMPRESSION: 1. Acute kidney injury. The patient developed possible urinary tract infection with history of SVT. This may be the reason why he has a sensation of urinating even though most of the urine drains through his suprapubic tube. His acute kidney injury is secondary to development of acute interstitial nephritis. 2. Urinary retention, status post suprapubic tube placement. 3. Dyslipidemia. 4. Glaucoma. 5. Type 2 diabetes mellitus. 6. Diabetic neuropathy. 7. Essential hypertension. PLAN: 1. Continue with IV fluids. 2. Urine C and S. 3. Antibiotics. 4. CT scan of the abdomen and pelvis. 5. Electrolytes along with CBC and hemoglobin A1c. 6. Urine sodium, eosinophils, and creatinine. 7. Urine microalbumin to creatinine ratio. Thank you, Dr. Wills, for this consult. We will follow the patient closely with you. JOB# [id number]
[2018-08-05] MEDS: INSULIN LISPRO SLIDING SCALE 100 UNITS/ML UNIT SUBQ SCH ×3 (06:05→18:32)
--- NOTE | 2018-08-05 06:18 | History & Physical ---
ADMIT DATE: 08/04/2018 CHIEF COMPLAINT: Lower abdominal pain. HISTORY OF PRESENT ILLNESS: This is a 68-year-old male who was admitted from a senior care facility and later was transferred to [facility] due to complaint of lower abdominal pain after change of the suprapubic catheter from the facility. The patient stated that he had feeling of dysuria and sense of increased urge of urination. REVIEW OF SYSTEMS: GENERAL: This is a 68-year-old male. No fever. No weakness. HEENT: No headache. No dizziness. No neck pain or nuchal rigidity. CHEST: No chest pain or palpitation. PULMONARY: No coughing. No shortness of breath. GASTROINTESTINAL: Abdominal pain. No constipation or diarrhea. MUSCULOSKELETAL: No joint pain. No muscle pain. GENITOURINARY: Positive dysuria. Positive urinary urgency. SOCIAL HISTORY: The patient lives in a senior care facility prior to hospitalization. SURGICAL HISTORY: Includes history of suprapubic catheter insertion. FAMILY HISTORY: Unremarkable. PAST MEDICAL HISTORY: Includes hypertension, diabetes, gastroesophageal reflux disease, glaucoma. PHYSICAL EXAMINATION: VITAL SIGNS: Temperature 97.2, heart rate 77, blood pressure 161/79, respirations 20, 98% on room air. HEAD: Atraumatic. GENERAL: This is a 68-year-old male that appears as stated, in no acute distress. HEENT: Head is atraumatic and normocephalic. Eyes: Bilateral conjunctivae are clear. Bilateral pupils are equally round and reactive. NECK: Supple. No JVD. CARDIOVASCULAR: S1 and S2, without murmur. PULMONARY: Clear to auscultation. GASTROINTESTINAL: Soft and nontender without guarding. Positive bowel sounds. MUSCULOSKELETAL: No clubbing. No cyanosis noted. ASSESSMENT: 1. Lower abdominal pain. 2. Dysuria. 3. Status post suprapubic catheter. 4. Hypertension. 5. Diabetes. PLAN: We will admit the patient to Med/Surg Unit. We will do medication reconciliation accordingly. We will consult with security threat analyst and urologist. Treatment plans were discussed with the patient's nurse. Treatment plans were discussed with Dr. Wills. JOB# [id number]
[2018-08-05 06:43] LABS: % BASOPHILS 0.9 % (0.0-2.0); % LYMPHOCYTES 17.1 % (20.0-50.0); % MONOCYTES 8.8 % (2.0-10.0); % NEUTROPHILS 68.2 % (40.0-80.0); BASOPHILE ABSOLUTE 0.1 Th/cumm (0-0.2); EOSINOPHILE ABSOLUTE 0.5 Th/cmm (0.1-0.4); HEMATOCRIT 31.5 % (41.0-60); HEMOGLOBIN 10.5 gm/dL (12-16); LYMPHOCYTE ABSOLUTE 1.5 Th/cmm (1.5-3.0); MEAN CELL VOLUME 85.4 fl (80-99); MEAN CORPUSCULAR HEMOGLOBIN 28.5 pg (27.0-31.0); MEAN CORPUSCULAR HGB CONC 33.3 pg (28.0-36.0); MEAN PLATELET VOLUME 7.6 fl; MONOCYTE ABSOLUTE 0.8 Th/cmm (0.3-1.0); NEUTROPHILE ABSOLUTE 6.1 Th/cmm (1.8-8.0); PLATELET COUNT 439 Th/cmm (150-400); RED BLOOD COUNT 3.69 Mil/cmm (3.80-5.80); RED CELL DISTRIBUTION WIDTH 14.4 % (11.5-20.0)
[2018-08-05 06:56] LABS: ALB/GLOB RATIO 1.4 (1.0-1.8); ALBUMIN 3.6 gm/dL (4.2-5.5); ANION GAP 13.4 (7.0-16.0); BILIRUBIN,TOTAL 0.3 mg/dL (0.3-1.0); CALCIUM SERUM 8.7 mg/dL (8.6-10.3); CARBON DIOXIDE 17.5 mEq/L (21.0-31.0); GFR AFRICAN-AMERICAN 43.2 ml/min (>90); GFR NON AFRICAN-AMERICAN 35.7 ml/min; MAGNESIUM 2.4 mg/dL (1.9-2.7); POTASSIUM SERUM 3.9 mEq/L (3.5-5.1); TOTAL PROTEIN,SERUM 6.2 gm/dL (6.0-8.3); URIC ACID 10.1 mg/dL (4.4-7.6)
[2018-08-05] MEDS: Albuterol/Ipratropium Neb 3 ML AERS HHN SCH ×4 (07:06→18:45)
[2018-08-05] MEDS ORDERED: METHAZOLAMIDE 50 MG PO SCH (09:00)
[2018-08-05 09:21] LABS: EOSINOPHIL SMEAR SOURCE URINE; EOSINOPHILS SMEAR COUNT NONE SEEN (NONE SEEN)
[2018-08-05] MEDS: Aspirin 81mg Chewable Tab PO SCH (10:44)
[2018-08-05] MEDS: Magnesium Hydroxide (MOM) 30 mL UDC PO SCH (10:45)
[2018-08-05] MEDS: Pantoprazole 40 mg EC Tab PO SCH (10:45)
[2018-08-05] MEDS: Insulin Glargine 100 units/ml 10ml Vial SUBQ SCH ×3 (10:47→17:38)
--- NOTE | 2018-08-05 12:15 | Internal Medicine Prog Note ---
Internal Medicine Subjective - Subjective Patient seen and examined:: chart reviewed Patient is:: awake, talking, other (c/o abd pain) Per staff patient has:: no adverse event Internal Medicine Objective - Results Result Diagrams: 08/05/18 06:05 08/05/18 06:05 Recent Labs: Laboratory Last Values WBC 9.0 Th/cmm (4.8-10.8) 08/05/18 06:05 RBC 3.69 Mil/cmm (3.80-5.80) L 08/05/18 06:05 Hgb 10.5 gm/dL (12-16) L 08/05/18 06:05 Hct 31.5 % (41.0-60) L 08/05/18 06:05 MCV 85.4 fl (80-99) 08/05/18 06:05 MCH 28.5 pg (27.0-31.0) 08/05/18 06:05 MCHC Differential 33.3 pg (28.0-36.0) 08/05/18 06:05 RDW 14.4 % (11.5-20.0) 08/05/18 06:05 Plt Count 439 Th/cmm (150-400) H 08/05/18 06:05 MPV 7.6 fl 08/05/18 06:05 Neutrophils % 68.2 % (40.0-80.0) 08/05/18 06:05 Lymphocytes % 17.1 % (20.0-50.0) L 08/05/18 06:05 Monocytes % 8.8 % (2.0-10.0) 08/05/18 06:05 Eosinophils % 5.0 % (0.0-5.0) 08/05/18 06:05 Basophils % 0.9 % (0.0-2.0) 08/05/18 06:05 Eos Smear Source URINE 08/05/18 05:17 Eos Smear Total Cells NONE SEEN (NONE SEEN) 08/05/18 05:17 Sodium 139 mEq/L (136-145) 08/05/18 06:05 Potassium 3.9 mEq/L (3.5-5.1) 08/05/18 06:05 Chloride 112 mEq/L (98-107) H 08/05/18 06:05 Carbon Dioxide 17.5 mEq/L (21.0-31.0) L 08/05/18 06:05 Anion Gap 13.4 (7.0-16.0) 08/05/18 06:05 BUN 51 mg/dL (7-25) H 08/05/18 06:05 Creatinine 2.0 mg/dL (0.7-1.3) H 08/05/18 06:05 Est GFR ( Amer) 43.2 ml/min (>90) 08/05/18 06:05 Est GFR (Non-Af Amer) 35.7 ml/min 08/05/18 06:05 BUN/Creatinine Ratio 25.5 08/05/18 06:05 Glucose 192 mg/dL (70-105) H 08/05/18 06:05 POC Glucose 168 MG/DL (70 - 105) H 08/05/18 05:34 Uric Acid 10.1 mg/dL (4.4-7.6) H 08/05/18 06:05 Calcium 8.7 mg/dL (8.6-10.3) 08/05/18 06:05 Phosphorus 4.0 mg/dL (2.5-5.0) 08/05/18 06:05 Magnesium 2.4 mg/dL (1.9-2.7) 08/05/18 06:05 Total Bilirubin 0.3 mg/dL (0.3-1.0) 08/05/18 06:05 AST 8 U/L (13-39) L 08/05/18 06:05 ALT 5 U/L (7-52) L 08/05/18 06:05 Alkaline Phosphatase 81 U/L (34-104) 08/05/18 06:05 Total Protein 6.2 gm/dL (6.0-8.3) 08/05/18 06:05 Albumin 3.6 gm/dL (4.2-5.5) L 08/05/18 06:05 Globulin 2.6 gm/dL 08/05/18 06:05 Albumin/Globulin Ratio 1.4 (1.0-1.8) 08/05/18 06:05 Urine Source CATH 08/03/18 23:18 Urine Color YELLOW 08/03/18 23:18 Urine Clarity CLOUDY (CLEAR) 08/03/18 23:18 Urine pH 5.5 (4.6 - 8.0) 08/03/18 23:18 Ur Specific [place] 1.010 (1.005-1.030) 08/03/18 23:18 Urine Protein 100 mg/dL (NEGATIVE) H 08/03/18 23:18 Urine Glucose (UA) NEGATIVE mg/dL (NEGATIVE) 08/03/18 23:18 Urine Ketones NEGATIVE mg/dL (NEGATIVE) 08/03/18 23:18 Urine Blood SMALL (NEGATIVE) H 08/03/18 23:18 Urine Nitrate NEGATIVE (NEGATIVE) 08/03/18 23:18 Urine Bilirubin NEGATIVE (NEGATIVE) 08/03/18 23:18 Urine Urobilinogen 0.2 E.U./dL (0.2 - 1.0) 08/03/18 23:18 Ur Leukocyte Esterase LARGE (NEGATIVE) H 08/03/18 23:18 Urine RBC 2-5 /hpf (0-5) H 08/03/18 23:18 Urine WBC 50-100 /hpf (0-5) H 08/03/18 23:18 Ur Epithelial Cells NONE SEEN /lpf (FEW) 08/03/18 23:18 Urine Bacteria MANY /hpf (NONE SEEN) H 08/03/18 23:18 Ur Random Sodium 84 mmol/L 08/05/18 06:20 Urine Creatinine 126.0 mg/dl (39.0-259.0) 08/05/18 06:20 - Physical Exam Vitals and I&O: Vital Signs Temp 97.9 F 08/05/18 04:00 Pulse 76 08/05/18 10:47 Resp 18 08/05/18 10:47 BP 114/69 08/05/18 04:00 Pulse Ox 97 08/05/18 10:47 Intake & Output 08/04/18 08/05/18 08/05/18 18:59 06:59 18:59 Intake Total 500 Output Total 1100 500 Balance -1100 0 Weight (lbs) 81.647 kg 81.647 kg Intake: Oral 500 Output: Urine 1100 500 Other: # Bowel Movements 0 Weight Source Bedscale Bedscale Active Medications: Current Medications Acetaminophen (Tylenol) 650 mg PO Q4HR PRN PRN Reason: Pain or Fever >101 Stop: 10/03/18 14:15 Last Admin: 08/05/18 06:01 Dose: 650 mg Acetaminophen/Hydrocodone Bitart ([place] 5mg/325mg) 1 tab PO Q4H PRN PRN Reason: Pain (Severe) Stop: 10/03/18 14:17 Albuterol/Ipratropium (Duoneb Neb) 3 ml HHN Q4HRT PRN PRN Reason: Shortness of Breath or Wheeze Stop: 10/03/18 14:15 Albuterol/Ipratropium (Duoneb Neb) 3 ml HHN QIDRT [facility]ISH Stop: 10/03/18 14:59 Last Admin: 08/05/18 10:47 Dose: 3 ml Aspirin (Aspirin Chewable) 81 mg PO DAILY [facility] Stop: 10/04/18 08:59 Last Admin: 08/05/18 10:44 Dose: Not Given Atorvastatin Calcium (Lipitor) 10 mg PO HS [facility]; Protocol Stop: 10/03/18 20:59 Last Admin: 08/04/18 21:32 Dose: 10 mg Bisacodyl (Dulcolax 10 Mg Supp) 10 mg RC DAILY PRN PRN Reason: Constipation Stop: 10/03/18 14:15 Brimonidine Tartrate (Alphagan 0.2% Ophth Soln) 1 drop EACH EYE DAILY [facility] Stop: 10/04/18 08:59 Last Admin: 08/05/18 10:51 Dose: 1 drop Docusate Sodium (Colace) 100 mg PO HS [facility] Stop: 10/03/18 20:59 Last Admin: 08/04/18 21:32 Dose: 100 mg Dorzolamide HCl (Trusopt 2% Ophth Soln) 1 drop EACH EYE BID [facility] Stop: 10/03/18 16:59 Last Admin: 08/05/18 10:51 Dose: 1 drop Gabapentin (Neurontin) 300 mg PO Q8H [facility] Stop: 10/03/18 14:29 Last Admin: 08/04/18 21:37 Dose: 300 mg Hydralazine HCl (Apresoline) 50 mg PO TID [facility] Stop: 10/03/18 20:59 Last Admin: 08/05/18 10:44 Dose: Not Given Ceftriaxone Sodium 1 gm/ (Sodium Chloride) 50 mls @ 100 mls/hr IV Q24HR [facility] Stop: 10/03/18 16:14 Last Admin: 08/04/18 17:40 Dose: 100 mls/hr Sodium Chloride (Nacl 0.9%) 1,000 mls @ 75 mls/hr IV .[id number] [facility] Stop: 10/03/18 16:29 Last Admin: 08/04/18 17:03 Dose: 75 mls/hr Dextrose/Sodium Chloride (D5-0.45ns) 1,000 mls @ 50 mls/hr IV .Q20H [facility] Stop: 10/03/18 20:59 Last Admin: 08/04/18 23:52 Dose: 50 mls/hr Insulin Glargine (Lantus Insulin) 20 units SUBQ BID [facility] Stop: 10/03/18 16:59 Last Admin: 08/05/18 10:47 Dose: Not Given Insulin Human Lispro (Humalog Insulin Sliding Scale) 0 units SUBQ Q6HR [facility]; Protocol Stop: 10/04/18 00:00 Last Admin: 08/05/18 06:05 Dose: Not Given Isosorbide Mononitrate (Imdur) 30 mg PO HS [facility] Stop: 10/03/18 20:59 Last Admin: 08/04/18 21:33 Dose: 30 mg Latanoprost (Xalatan 0.005% [facility]) 1 drop LEFT EYE HS [facility] Stop: 10/03/18 20:59 Last Admin: 08/04/18 21:37 Dose: 1 drop Magnesium Hydroxide (Milk Of Magnesia) 30 ml PO DAILY [facility] Stop: 10/04/18 08:59 Last Admin: 08/05/18 10:45 Dose: Not Given Metoprolol Tartrate (Lopressor) 25 mg PO DAILY [facility] Stop: 10/04/18 08:59 Last Admin: 08/05/18 10:45 Dose: Not Given Miscellaneous (Lidocaine Hcl [Alocane Emergency Burn]) 1 applic TP Q4H PRN PRN Reason: Pain (Moderate) Miscellaneous (Methazolamide [Methazolamide]) 50 mg PO DAILY [facility] Stop: 10/04/18 08:59 Miscellaneous (Propylene Glycol/Peg 400/Pf [Systane Ultra 0.4-0.3% Eye Drp]) 1 drop LEFT EYE HS [facility] Stop: 10/03/18 20:59 Morphine Sulfate (Morphine) 2 mg IVP Q4HR PRN PRN Reason: Severe Pain Stop: 10/03/18 08:50 Pantoprazole Sodium (Protonix) 40 mg PO DAILY [facility] Stop: 10/04/18 08:59 Last Admin: 08/05/18 10:45 Dose: Not Given Timolol Maleate (Timoptic 0.5% Oph Soln) 1 drop EACH EYE BID [facility] Stop: 10/03/18 16:59 Last Admin: 08/05/18 10:51 Dose: 1 drop General: alert HEENT: NC/AT Neck: Supple Lungs: CTAB Cardiovascular: RRR, Normal S1, Normal S2 Abdomen: tender Extremities: clear Neurological: no change Internal Medicine Assmt/Plan - Assessment Assessment: abd pain dysuria s/p suprapubic catheter htn dm - Plan Plan: cpm
--- NOTE | 2018-08-05 13:27 | Consultation ---
DATE OF CONSULTATION: 08/05/2018 UROLOGY CONSULTATION REASON FOR CONSULTATION: Seen for lower abdominal pain, dysuria, and urgency. HISTORY OF PRESENT ILLNESS: This is a patient known to me from several months before dependent on the suprapubic catheter due to a neurogenic bladder. He has had a TURP that did not help empty his bladder. He has been in and out of the hospital many times due to malfunctioning of the suprapubic catheter or bleeding or infection around it. Current admission is also for similar problem, although the tube is draining quite well. ALLERGIES: None. REVIEW OF SYSTEMS: A 12-point review is unremarkable except for the urgency that he complained of and suprapubic discomfort. PAST MEDICAL HISTORY: Positive for diabetes, hypertension. HOME MEDICATIONS: Albuterol inhaler, Lipitor, gabapentin, hydralazine, insulin, isosorbide, methazolamide metoprolol, Protonix. PAST SURGICAL HISTORY: TURP and second procedure was opened suprapubic cystostomy. PHYSICAL EXAMINATION: GENERAL: On exam, he is awake, alert, oriented. He is in no pain or distress anymore. VITAL SIGNS: Temperature 97.9, heart rate 76, blood pressure 114/69. ABDOMEN: Soft. The suprapubic catheter is almost ready to be dislodged because it is on traction in in spite of telling the nurses and the patient multiple times to tape it securely on the abdomen and thigh so that there is enough slack and the tube does not fall out accidentally. EXTREMITIES: Have no edema. HEART AND LUNG: Sounds are normal. : The urine in the [place] is clear. The bag is half full. LABORATORY DATA: White count 9.0, normal throughout his stay. Hemoglobin 10.5, stable. Chemistries: Chloride 112, CO2 17.5, BUN 51, creatinine 2.0, glucose 168 and 169, creatinine in the past has been 1.7 at one point and 2.1, 1.9 and basically in the same range. IMPRESSION: Dysuria, urgency and suprapubic discomfort related to malfunctioning suprapubic catheter and inadequate irrigation of the catheter as recommended on a daily basis. Both were explained to the charge nurse and the patient's nurse and to be communicated to the long term from where he comes every few months for the same problem. I hope somebody will pay attention to it and corrected, so that this does not keep happening repeatedly. JOB# [id number]
[2018-08-05] MEDS: cefTRIAXone 1 GM in Sodium Chloride 0.9% 50 ML IV SCH (17:21)
--- NOTE | 2018-08-05 17:56 | General Progress Note ---
Subjective - Review of Systems Service Date: 08/05/18 Subjective: alert, less abd irritation Objective - Results Result Diagrams: 08/05/18 06:05 08/05/18 06:05 Recent Labs: Laboratory Last Values WBC 9.0 Th/cmm (4.8-10.8) 08/05/18 06:05 RBC 3.69 Mil/cmm (3.80-5.80) L 08/05/18 06:05 Hgb 10.5 gm/dL (12-16) L 08/05/18 06:05 Hct 31.5 % (41.0-60) L 08/05/18 06:05 MCV 85.4 fl (80-99) 08/05/18 06:05 MCH 28.5 pg (27.0-31.0) 08/05/18 06:05 MCHC Differential 33.3 pg (28.0-36.0) 08/05/18 06:05 RDW 14.4 % (11.5-20.0) 08/05/18 06:05 Plt Count 439 Th/cmm (150-400) H 08/05/18 06:05 MPV 7.6 fl 08/05/18 06:05 Neutrophils % 68.2 % (40.0-80.0) 08/05/18 06:05 Lymphocytes % 17.1 % (20.0-50.0) L 08/05/18 06:05 Monocytes % 8.8 % (2.0-10.0) 08/05/18 06:05 Eosinophils % 5.0 % (0.0-5.0) 08/05/18 06:05 Basophils % 0.9 % (0.0-2.0) 08/05/18 06:05 Eos Smear Source URINE 08/05/18 05:17 Eos Smear Total Cells NONE SEEN (NONE SEEN) 08/05/18 05:17 Sodium 139 mEq/L (136-145) 08/05/18 06:05 Potassium 3.9 mEq/L (3.5-5.1) 08/05/18 06:05 Chloride 112 mEq/L (98-107) H 08/05/18 06:05 Carbon Dioxide 17.5 mEq/L (21.0-31.0) L 08/05/18 06:05 Anion Gap 13.4 (7.0-16.0) 08/05/18 06:05 BUN 51 mg/dL (7-25) H 08/05/18 06:05 Creatinine 2.0 mg/dL (0.7-1.3) H 08/05/18 06:05 Est GFR ( Amer) 43.2 ml/min (>90) 08/05/18 06:05 Est GFR (Non-Af Amer) 35.7 ml/min 08/05/18 06:05 BUN/Creatinine Ratio 25.5 08/05/18 06:05 Glucose 192 mg/dL (70-105) H 08/05/18 06:05 POC Glucose 319 MG/DL (70 - 105) H 08/05/18 17:35 Uric Acid 10.1 mg/dL (4.4-7.6) H 08/05/18 06:05 Calcium 8.7 mg/dL (8.6-10.3) 08/05/18 06:05 Phosphorus 4.0 mg/dL (2.5-5.0) 08/05/18 06:05 Magnesium 2.4 mg/dL (1.9-2.7) 08/05/18 06:05 Total Bilirubin 0.3 mg/dL (0.3-1.0) 08/05/18 06:05 AST 8 U/L (13-39) L 08/05/18 06:05 ALT 5 U/L (7-52) L 08/05/18 06:05 Alkaline Phosphatase 81 U/L (34-104) 08/05/18 06:05 Total Protein 6.2 gm/dL (6.0-8.3) 08/05/18 06:05 Albumin 3.6 gm/dL (4.2-5.5) L 08/05/18 06:05 Globulin 2.6 gm/dL 08/05/18 06:05 Albumin/Globulin Ratio 1.4 (1.0-1.8) 08/05/18 06:05 Urine Source CATH 08/03/18 23:18 Urine Color YELLOW 08/03/18 23:18 Urine Clarity CLOUDY (CLEAR) 08/03/18 23:18 Urine pH 5.5 (4.6 - 8.0) 08/03/18 23:18 Ur Specific [place] 1.010 (1.005-1.030) 08/03/18 23:18 Urine Protein 100 mg/dL (NEGATIVE) H 08/03/18 23:18 Urine Glucose (UA) NEGATIVE mg/dL (NEGATIVE) 08/03/18 23:18 Urine Ketones NEGATIVE mg/dL (NEGATIVE) 08/03/18 23:18 Urine Blood SMALL (NEGATIVE) H 08/03/18 23:18 Urine Nitrate NEGATIVE (NEGATIVE) 08/03/18 23:18 Urine Bilirubin NEGATIVE (NEGATIVE) 08/03/18 23:18 Urine Urobilinogen 0.2 E.U./dL (0.2 - 1.0) 08/03/18 23:18 Ur Leukocyte Esterase LARGE (NEGATIVE) H 08/03/18 23:18 Urine RBC 2-5 /hpf (0-5) H 08/03/18 23:18 Urine WBC 50-100 /hpf (0-5) H 08/03/18 23:18 Ur Epithelial Cells NONE SEEN /lpf (FEW) 08/03/18 23:18 Urine Bacteria MANY /hpf (NONE SEEN) H 08/03/18 23:18 Ur Random Sodium 84 mmol/L 08/05/18 06:20 Urine Creatinine 126.0 mg/dl (39.0-259.0) 08/05/18 06:20 - Physical Exam Vitals and I&O: Vital Signs Temp 97.3 F 08/05/18 16:00 Pulse 82 08/05/18 16:00 Resp 19 08/05/18 16:00 BP 167/83 08/05/18 16:00 Pulse Ox 97 08/05/18 16:00 Intake & Output 08/04/18 08/05/18 08/05/18 18:59 06:59 18:59 Intake Total 50 500 Output Total 1100 500 Balance -1050 0 Weight (lbs) 81.647 kg 81.647 kg Intake: Intake, IV Amount 50 [id number] 1 gm In 50 Sodium Chloride 0.9% 50 ml @ 100 mls/hr IV Q24HR [facility] Rx#:[id number] Oral 500 Output: Urine 1100 500 Other: # Bowel Movements 0 Weight Source Bedscale Bedscale Active Medications: Current Medications Acetaminophen (Tylenol) 650 mg PO Q4HR PRN PRN Reason: Pain or Fever >101 Stop: 10/03/18 14:15 Last Admin: 08/05/18 14:23 Dose: 650 mg Acetaminophen/Hydrocodone Bitart ([place] 5mg/325mg) 1 tab PO Q4H PRN PRN Reason: Pain (Severe) Stop: 10/03/18 14:17 Albuterol/Ipratropium (Duoneb Neb) 3 ml HHN Q4HRT PRN PRN Reason: Shortness of Breath or Wheeze Stop: 10/03/18 14:15 Albuterol/Ipratropium (Duoneb Neb) 3 ml HHN QIDRT KRISH Stop: 10/03/18 14:59 Last Admin: 08/05/18 14:44 Dose: 3 ml Aspirin (Aspirin Chewable) 81 mg PO DAILY [facility] Stop: 10/04/18 08:59 Last Admin: 08/05/18 10:44 Dose: Not Given Atorvastatin Calcium (Lipitor) 10 mg PO HS [facility]; Protocol Stop: 10/03/18 20:59 Last Admin: 08/04/18 21:32 Dose: 10 mg Bisacodyl (Dulcolax 10 Mg Supp) 10 mg RC DAILY PRN PRN Reason: Constipation Stop: 10/03/18 14:15 Brimonidine Tartrate (Alphagan 0.2% Ophth Soln) 1 drop EACH EYE DAILY [facility] Stop: 10/04/18 08:59 Last Admin: 08/05/18 10:51 Dose: 1 drop Docusate Sodium (Colace) 100 mg PO HS [facility] Stop: 10/03/18 20:59 Last Admin: 08/04/18 21:32 Dose: 100 mg Dorzolamide HCl (Trusopt 2% Ophth Soln) 1 drop EACH EYE BID [facility] Stop: 10/03/18 16:59 Last Admin: 08/05/18 17:25 Dose: 1 drop Gabapentin (Neurontin) 300 mg PO Q8H [facility] Stop: 10/03/18 14:29 Last Admin: 08/05/18 15:36 Dose: 300 mg Hydralazine HCl (Apresoline) 50 mg PO TID [facility] Stop: 10/03/18 20:59 Last Admin: 08/05/18 15:43 Dose: 50 mg Ceftriaxone Sodium 1 gm/ (Sodium Chloride) 50 mls @ 100 mls/hr IV Q24HR [facility] Stop: 10/03/18 16:14 Last Admin: 08/05/18 17:21 Dose: 100 mls/hr Sodium Chloride (Nacl 0.9%) 1,000 mls @ 100 mls/hr IV .Q10H [facility] Stop: 10/04/18 18:59 Insulin Glargine (Lantus Insulin) 20 units SUBQ BID [facility] Stop: 10/03/18 16:59 Last Admin: 08/05/18 17:38 Dose: 20 units Insulin Human Lispro (Humalog Insulin Sliding Scale) 0 units SUBQ Q6HR [facility]; Protocol Stop: 10/04/18 00:00 Last Admin: 08/05/18 14:27 Dose: Not Given Isosorbide Mononitrate (Imdur) 30 mg PO HS [facility] Stop: 10/03/18 20:59 Last Admin: 08/04/18 21:33 Dose: 30 mg Latanoprost (Xalatan 0.005% Oph Soln) 1 drop LEFT EYE HS [facility] Stop: 10/03/18 20:59 Last Admin: 08/04/18 21:37 Dose: 1 drop Magnesium Hydroxide (Milk Of Magnesia) 30 ml PO DAILY [facility] Stop: 10/04/18 08:59 Last Admin: 08/05/18 10:45 Dose: Not Given Metoprolol Tartrate (Lopressor) 25 mg PO DAILY [facility] Stop: 10/04/18 08:59 Last Admin: 08/05/18 10:45 Dose: Not Given Miscellaneous (Lidocaine Hcl [Alocane Emergency Burn]) 1 applic TP Q4H PRN PRN Reason: Pain (Moderate) Miscellaneous (Methazolamide [Methazolamide]) 50 mg PO DAILY [facility] Stop: 10/04/18 08:59 Miscellaneous (Propylene Glycol/Peg 400/Pf [Systane Ultra 0.4-0.3% Eye Drp]) 1 drop LEFT EYE HS [facility] Stop: 10/03/18 20:59 Morphine Sulfate (Morphine) 2 mg IVP Q4HR PRN PRN Reason: Severe Pain Stop: 10/03/18 08:50 Pantoprazole Sodium (Protonix) 40 mg PO DAILY [facility] Stop: 10/04/18 08:59 Last Admin: 08/05/18 10:45 Dose: Not Given Sodium Bicarbonate (Sodium Bicarbonate) 650 mg PO BID [facility]; Protocol Stop: 10/04/18 18:59 Timolol Maleate (Timoptic 0.5% Ophth Soln) 1 drop EACH EYE BID [facility] Stop: 10/03/18 16:59 Last Admin: 08/05/18 17:25 Dose: 1 drop General: Alert, Mild distress HEENT: Atraumatic, Mucous membr. moist/pink Neck: Supple, +2 carotid pulse wo bruit Cardiovascular: Regular rate, Normal S1, Normal S2 Lungs: Clear to auscultation Abdomen: Bowel sounds, Soft Extremities: no Edema Neurological: Sensation intact Skin: no Rash Psych/Mental Status: Mood NL Assessment/Plan - Assessment Assessment: SAMARIA Mafunction SPT Dyslipidemia Glaucoma T2DM Ess Htn DM Neuropathy Possible UTI Nongap met acid - Plan Plan: Lab - Result Diagrams 08/05/18 06:05 08/05/18 06:05 Current Medications Acetaminophen (Tylenol) 650 mg PO Q4HR PRN PRN Reason: Pain or Fever >101 Stop: 10/03/18 14:15 Last Admin: 08/05/18 14:23 Dose: 650 mg Acetaminophen/Hydrocodone Bitart ([place] 5mg/325mg) 1 tab PO Q4H PRN PRN Reason: Pain (Severe) Stop: 10/03/18 14:17 Albuterol/Ipratropium (Duoneb Neb) 3 ml HHN Q4HRT PRN PRN Reason: Shortness of Breath or Wheeze Stop: 10/03/18 14:15 Albuterol/Ipratropium (Duoneb Neb) 3 ml HHN QIDRT KRISH Stop: 10/03/18 14:59 Last Admin: 08/05/18 14:44 Dose: 3 ml Aspirin (Aspirin Chewable) 81 mg PO DAILY [facility] Stop: 10/04/18 08:59 Last Admin: 08/05/18 10:44 Dose: Not Given Atorvastatin Calcium (Lipitor) 10 mg PO HS [facility]; Protocol Stop: 10/03/18 20:59 Last Admin: 08/04/18 21:32 Dose: 10 mg Bisacodyl (Dulcolax 10 Mg Supp) 10 mg RC DAILY PRN PRN Reason: Constipation Stop: 10/03/18 14:15 Brimonidine Tartrate (Alphagan 0.2% Ophth Soln) 1 drop EACH EYE DAILY [facility] Stop: 10/04/18 08:59 Last Admin: 08/05/18 10:51 Dose: 1 drop Docusate Sodium (Colace) 100 mg PO HS [facility] Stop: 10/03/18 20:59 Last Admin: 08/04/18 21:32 Dose: 100 mg Dorzolamide HCl (Trusopt 2% Ophth Soln) 1 drop EACH EYE BID [facility] Stop: 10/03/18 16:59 Last Admin: 08/05/18 17:25 Dose: 1 drop Gabapentin (Neurontin) 300 mg PO Q8H [facility] Stop: 10/03/18 14:29 Last Admin: 08/05/18 15:36 Dose: 300 mg Hydralazine HCl (Apresoline) 50 mg PO TID [facility] Stop: 10/03/18 20:59 Last Admin: 08/05/18 15:43 Dose: 50 mg Ceftriaxone Sodium 1 gm/ (Sodium Chloride) 50 mls @ 100 mls/hr IV Q24HR [facility] Stop: 10/03/18 16:14 Last Admin: 08/05/18 17:21 Dose: 100 mls/hr Sodium Chloride (Nacl 0.9%) 1,000 mls @ 100 mls/hr IV .Q10H [facility] Stop: 10/04/18 18:59 Insulin Glargine (Lantus Insulin) 20 units SUBQ BID [facility] Stop: 10/03/18 16:59 Last Admin: 08/05/18 17:38 Dose: 20 units Insulin Human Lispro (Humalog Insulin Sliding Scale) 0 units SUBQ Q6HR [facility]; Protocol Stop: 10/04/18 00:00 Last Admin: 08/05/18 14:27 Dose: Not Given Isosorbide Mononitrate (Imdur) 30 mg PO HS [facility] Stop: 10/03/18 20:59 Last Admin: 08/04/18 21:33 Dose: 30 mg Latanoprost (Xalatan 0.005% Ophth Soln) 1 drop LEFT EYE HS [facility] Stop: 10/03/18 20:59 Last Admin: 08/04/18 21:37 Dose: 1 drop Magnesium Hydroxide (Milk Of Magnesia) 30 ml PO DAILY [facility] Stop: 10/04/18 08:59 Last Admin: 08/05/18 10:45 Dose: Not Given Metoprolol Tartrate (Lopressor) 25 mg PO DAILY [facility] Stop: 10/04/18 08:59 Last Admin: 08/05/18 10:45 Dose: Not Given Miscellaneous (Lidocaine Hcl [Alocane Emergency Burn]) 1 applic TP Q4H PRN PRN Reason: Pain (Moderate) Miscellaneous (Methazolamide [Methazolamide]) 50 mg PO DAILY [facility] Stop: 10/04/18 08:59 Miscellaneous (Propylene Glycol/Peg 400/Pf [Systane Ultra 0.4-0.3% Eye Drp]) 1 drop LEFT EYE HS [facility] Stop: 10/03/18 20:59 Morphine Sulfate (Morphine) 2 mg IVP Q4HR PRN PRN Reason: Severe Pain Stop: 10/03/18 08:50 Pantoprazole Sodium (Protonix) 40 mg PO DAILY [facility] Stop: 10/04/18 08:59 Last Admin: 08/05/18 10:45 Dose: Not Given Sodium Bicarbonate (Sodium Bicarbonate) 650 mg PO BID [facility]; Protocol Stop: 10/04/18 18:59 Timolol Maleate (Timoptic 0.5% Oph Soln) 1 drop EACH EYE BID [facility] Stop: 10/03/18 16:59 Last Admin: 08/05/18 17:25 Dose: 1 drop Lab - Result Diagrams 08/05/18 06:05 08/05/18 06:05 Kidney fnc basically the same less abd irritation needs proper daily flushing of SPT F/U urine C/S start [id number] continue Rocephin
[2018-08-05] MEDS: Sodium Chloride 0.9% 1,000 ML IV SCH (18:39)
[2018-08-05] MEDS: Atorvastatin Calcium 10 MG TAB PO SCH ×2 (20:55→21:07)
[2018-08-06] MEDS: INSULIN LISPRO SLIDING SCALE 100 UNITS/ML UNIT SUBQ SCH ×4 (00:02→18:11)
[2018-08-06] MEDS: Morphine Sulfate 2 mg/mL 1mL Syr IVP PRN ×5 (00:13→20:23)
[2018-08-06] MEDS: Sodium Chloride 0.9% 1,000 ML IV SCH ×2 (05:00→16:38)
[2018-08-06 05:34] LABS: ANION GAP 12.9 (7.0-16.0); CALCIUM SERUM 8.7 mg/dL (8.6-10.3); CREATININE - SERUM 1.7 mg/dL (0.7-1.3); GFR AFRICAN-AMERICAN 52.1 ml/min (>90); GFR NON AFRICAN-AMERICAN 43.1 ml/min; POTASSIUM SERUM 3.9 mEq/L (3.5-5.1)
[2018-08-06 06:31] LABS: % EOSINOPHILS 7.6 % (0.0-5.0); % LYMPHOCYTES 16.8 % (20.0-50.0); % MONOCYTES 10.6 % (2.0-10.0); BASOPHILE ABSOLUTE 0.1 Th/cumm (0-0.2); EOSINOPHILE ABSOLUTE 0.7 Th/cmm (0.1-0.4); HEMATOCRIT 31.9 % (41.0-60); HEMOGLOBIN 10.6 gm/dL (12-16); LYMPHOCYTE ABSOLUTE 1.6 Th/cmm (1.5-3.0); MEAN CELL VOLUME 85.2 fl (80-99); MEAN CORPUSCULAR HEMOGLOBIN 28.2 pg (27.0-31.0); MEAN CORPUSCULAR HGB CONC 33.1 pg (28.0-36.0); MEAN PLATELET VOLUME 7.9 fl; NEUTROPHILE ABSOLUTE 6.1 Th/cmm (1.8-8.0); PLATELET COUNT 437 Th/cmm (150-400); RED BLOOD COUNT 3.75 Mil/cmm (3.80-5.80); RED CELL DISTRIBUTION WIDTH 14.2 % (11.5-20.0); WHITE BLOOD COUNT 9.5 Th/cmm (4.8-10.8)
[2018-08-06] MEDS: Albuterol/Ipratropium Neb 3 ML AERS HHN SCH ×4 (07:14→18:44)
--- NOTE | 2018-08-06 07:29 | Diagnostic Imaging Report ---
Exam: CT examination of the pelvis HISTORY: Lower abdominal pain Total DLP equals 610 CTDI equals and 0.4 Findings: Multiple contiguous thin section of the abdomen pelvis obtained from lower thorax to the pubic symphysis without the administration of contrast material, no prior studies available comparison. The study demonstrates atelectatic changes in the right lung base The liver and spleen intact. The stomach distended with fluid content. Gallbladder is distended. The kidneys demonstrate no evidence of obstructive uropathy or nephrolithiasis. There is a question of mild perinephric inflammatory changes and radius cannot be excluded The visualized pancreas is intact. No free fluid is noted. The appendix is intact. There is no evidence of diverticulitis. Urinary bladder demonstrates thickening gallbladder wall. There is evidence for percutaneous suprapubic placement in the urinary bladder catheter. The visualized prostate gland is inhomogeneous Question of infiltration of the of the urinary bladder floor by prostate gland is normal clear. Direct visualization is recommended. IMPRESSION: Question of pyelonephritis, no evidence of hydronephrosis. Suprapubic Lowe balloon catheter placement. Inhomogeneous prostate gland, question overinflation of the urinary bladder floor.
[2018-08-06] MEDS: Magnesium Hydroxide (MOM) 30 mL UDC PO SCH ×2 (08:42→08:57)
[2018-08-06] MEDS: Aspirin 81mg Chewable Tab PO SCH (08:43)
[2018-08-06] MEDS: Pantoprazole 40 mg EC Tab PO SCH (08:43)
[2018-08-06] MEDS: Insulin Glargine 100 units/ml 10ml Vial SUBQ SCH ×2 (10:21→18:12)
--- NOTE | 2018-08-06 13:57 | General Progress Note ---
Subjective - Review of Systems Service Date: 08/06/18 Subjective: alert, less abd irritation Objective - Results Result Diagrams: 08/06/18 04:55 08/06/18 04:55 Recent Labs: Laboratory Last Values WBC 9.5 Th/cmm (4.8-10.8) 08/06/18 04:55 RBC 3.75 Mil/cmm (3.80-5.80) L 08/06/18 04:55 Hgb 10.6 gm/dL (12-16) L 08/06/18 04:55 Hct 31.9 % (41.0-60) L 08/06/18 04:55 MCV 85.2 fl (80-99) 08/06/18 04:55 MCH 28.2 pg (27.0-31.0) 08/06/18 04:55 MCHC Differential 33.1 pg (28.0-36.0) 08/06/18 04:55 RDW 14.2 % (11.5-20.0) 08/06/18 04:55 Plt Count 437 Th/cmm (150-400) H 08/06/18 04:55 MPV 7.9 fl 08/06/18 04:55 Neutrophils % 64.0 % (40.0-80.0) 08/06/18 04:55 Lymphocytes % 16.8 % (20.0-50.0) L 08/06/18 04:55 Monocytes % 10.6 % (2.0-10.0) H 08/06/18 04:55 Eosinophils % 7.6 % (0.0-5.0) H 08/06/18 04:55 Basophils % 1.0 % (0.0-2.0) 08/06/18 04:55 Eos Smear Source URINE 08/05/18 05:17 Eos Smear Total Cells NONE SEEN (NONE SEEN) 08/05/18 05:17 Sodium 137 mEq/L (136-145) 08/06/18 04:55 Potassium 3.9 mEq/L (3.5-5.1) 08/06/18 04:55 Chloride 110 mEq/L (98-107) H 08/06/18 04:55 Carbon Dioxide 18.0 mEq/L (21.0-31.0) L 08/06/18 04:55 Anion Gap 12.9 (7.0-16.0) 08/06/18 04:55 BUN 45 mg/dL (7-25) H 08/06/18 04:55 Creatinine 1.7 mg/dL (0.7-1.3) H 08/06/18 04:55 Est GFR ( Amer) 52.1 ml/min (>90) 08/06/18 04:55 Est GFR (Non-Af Amer) 43.1 ml/min 08/06/18 04:55 BUN/Creatinine Ratio 26.5 08/06/18 04:55 Glucose 195 mg/dL (70-105) H 08/06/18 04:55 POC Glucose 246 MG/DL (70 - 105) H 08/06/18 12:26 Uric Acid 10.1 mg/dL (4.4-7.6) H 08/05/18 06:05 Calcium 8.7 mg/dL (8.6-10.3) 08/06/18 04:55 Phosphorus 4.0 mg/dL (2.5-5.0) 08/05/18 06:05 Magnesium 2.4 mg/dL (1.9-2.7) 08/05/18 06:05 Total Bilirubin 0.3 mg/dL (0.3-1.0) 08/05/18 06:05 AST 8 U/L (13-39) L 08/05/18 06:05 ALT 5 U/L (7-52) L 08/05/18 06:05 Alkaline Phosphatase 81 U/L (34-104) 08/05/18 06:05 Total Protein 6.2 gm/dL (6.0-8.3) 08/05/18 06:05 Albumin 3.6 gm/dL (4.2-5.5) L 08/05/18 06:05 Globulin 2.6 gm/dL 08/05/18 06:05 Albumin/Globulin Ratio 1.4 (1.0-1.8) 08/05/18 06:05 Urine Source CATH 08/03/18 23:18 Urine Color YELLOW 08/03/18 23:18 Urine Clarity CLOUDY (CLEAR) 08/03/18 23:18 Urine pH 5.5 (4.6 - 8.0) 08/03/18 23:18 Ur Specific [place] 1.010 (1.005-1.030) 08/03/18 23:18 Urine Protein 100 mg/dL (NEGATIVE) H 08/03/18 23:18 Urine Glucose (UA) NEGATIVE mg/dL (NEGATIVE) 08/03/18 23:18 Urine Ketones NEGATIVE mg/dL (NEGATIVE) 08/03/18 23:18 Urine Blood SMALL (NEGATIVE) H 08/03/18 23:18 Urine Nitrate NEGATIVE (NEGATIVE) 08/03/18 23:18 Urine Bilirubin NEGATIVE (NEGATIVE) 08/03/18 23:18 Urine Urobilinogen 0.2 E.U./dL (0.2 - 1.0) 08/03/18 23:18 Ur Leukocyte Esterase LARGE (NEGATIVE) H 08/03/18 23:18 Urine RBC 2-5 /hpf (0-5) H 08/03/18 23:18 Urine WBC 50-100 /hpf (0-5) H 08/03/18 23:18 Ur Epithelial Cells NONE SEEN /lpf (FEW) 08/03/18 23:18 Urine Bacteria MANY /hpf (NONE SEEN) H 08/03/18 23:18 Ur Random Sodium 84 mmol/L 08/05/18 06:20 Urine Creatinine 126.0 mg/dl (39.0-259.0) 08/05/18 06:20 Microalb/Creat Ratio 741.2 mg/g creat (0.0-30.0) H 08/05/18 06:20 - Physical Exam Vitals and I&O: Vital Signs Temp 98.4 F 08/06/18 11:29 Pulse 67 08/06/18 11:29 Resp 19 08/06/18 11:29 BP 142/82 08/06/18 11:29 Pulse Ox 100 08/06/18 11:29 Intake & Output 08/05/18 08/06/18 08/06/18 18:59 06:59 18:59 Intake Total 1700 Output Total 2150 Balance -450 Weight (lbs) 81.647 kg Intake: Intake, IV Amount 1000 Sodium Chloride 0.9% 1, 1000 000 ml @ 100 mls/hr IV . Q10H [facility] Rx#:[id number] Oral 700 Output: Urine 2150 Other: Weight Source Bedscale Active Medications: Current Medications Acetaminophen (Tylenol) 650 mg PO Q4HR PRN PRN Reason: Pain or Fever >101 Stop: 10/03/18 14:15 Last Admin: 08/05/18 14:23 Dose: 650 mg Acetaminophen/Hydrocodone Bitart ([place] 5mg/325mg) 1 tab PO Q4H PRN PRN Reason: Pain (Severe) Stop: 10/03/18 14:17 Albuterol/Ipratropium (Duoneb Neb) 3 ml HHN Q4HRT PRN PRN Reason: Shortness of Breath or Wheeze Stop: 10/03/18 14:15 Albuterol/Ipratropium (Duoneb Neb) 3 ml HHN QIDRT [facility] Stop: 10/03/18 14:59 Last Admin: 08/06/18 11:08 Dose: 3 ml Aspirin (Aspirin Chewable) 81 mg PO DAILY [facility] Stop: 10/04/18 08:59 Last Admin: 08/06/18 08:43 Dose: 81 mg Atorvastatin Calcium (Lipitor) 10 mg PO HS [facility]; Protocol Stop: 10/03/18 20:59 Last Admin: 08/05/18 21:07 Dose: Not Given Bisacodyl (Dulcolax 10 Mg Supp) 10 mg RC DAILY PRN PRN Reason: Constipation Stop: 10/03/18 14:15 Brimonidine Tartrate (Alphagan 0.2% Ophth Soln) 1 drop EACH EYE DAILY [facility] Stop: 10/04/18 08:59 Last Admin: 08/06/18 08:44 Dose: 1 drop Docusate Sodium (Colace) 100 mg PO HS [facility] Stop: 10/03/18 20:59 Last Admin: 08/05/18 21:07 Dose: Not Given Dorzolamide HCl (Trusopt 2% Ophth Soln) 1 drop EACH EYE BID [facility] Stop: 10/03/18 16:59 Last Admin: 08/06/18 08:44 Dose: 1 drop Gabapentin (Neurontin) 300 mg PO Q8H [facility] Stop: 10/03/18 14:29 Last Admin: 08/06/18 08:42 Dose: 300 mg Hydralazine HCl (Apresoline) 50 mg PO TID [facility] Stop: 10/03/18 20:59 Last Admin: 08/06/18 08:43 Dose: 50 mg Ceftriaxone Sodium 1 gm/ (Sodium Chloride) 50 mls @ 100 mls/hr IV Q24HR [facility] Stop: 10/03/18 16:14 Last Admin: 08/05/18 17:21 Dose: 100 mls/hr Sodium Chloride (Nacl 0.9%) 1,000 mls @ 100 mls/hr IV .Q10H [facility] Stop: 10/04/18 18:59 Last Admin: 08/06/18 05:00 Dose: 100 mls/hr Insulin Glargine (Lantus Insulin) 20 units SUBQ BID [facility] Stop: 10/03/18 16:59 Last Admin: 08/06/18 10:21 Dose: 20 units Insulin Human Lispro (Humalog Insulin Sliding Scale) 0 units SUBQ Q6HR [facility]; Protocol Stop: 10/04/18 00:00 Last Admin: 08/06/18 12:35 Dose: 4 units Isosorbide Mononitrate (Imdur) 30 mg PO HS [facility] Stop: 10/03/18 20:59 Last Admin: 08/05/18 21:08 Dose: Not Given Latanoprost (Xalatan 0.005% [facility]) 1 drop LEFT EYE HS [facility] Stop: 10/03/18 20:59 Last Admin: 08/05/18 21:08 Dose: Not Given Magnesium Hydroxide (Milk Of Magnesia) 30 ml PO DAILY [facility] Stop: 10/04/18 08:59 Last Admin: 08/06/18 08:57 Dose: Not Given Metoprolol Tartrate (Lopressor) 25 mg PO DAILY [facility] Stop: 10/04/18 08:59 Last Admin: 08/06/18 08:43 Dose: 25 mg Miscellaneous (Lidocaine Hcl [Alocane Emergency Burn]) 1 applic TP Q4H PRN PRN Reason: Pain (Moderate) Miscellaneous (Methazolamide [Methazolamide]) 50 mg PO DAILY [facility] Stop: 10/04/18 08:59 Morphine Sulfate (Morphine) 2 mg IVP Q4HR PRN PRN Reason: Severe Pain Stop: 10/03/18 08:50 Last Admin: 08/06/18 08:43 Dose: 2 mg Mupirocin (Bactroban Oint) 1 appl NS BID [facility] Stop: 08/11/18 09:01 Pantoprazole Sodium (Protonix) 40 mg PO DAILY [facility] Stop: 10/04/18 08:59 Last Admin: 08/06/18 08:43 Dose: 40 mg Propylene Glycol (Systane Ophth Soln) 1 drop LEFT EYE HS [facility] Stop: 10/03/18 20:59 Sodium Bicarbonate (Sodium Bicarbonate) 650 mg PO BID [facility]; Protocol Stop: 10/04/18 18:59 Last Admin: 08/06/18 08:42 Dose: 650 mg Timolol Maleate (Timoptic 0.5% Ophth Soln) 1 drop EACH EYE BID [facility] Stop: 10/03/18 16:59 Last Admin: 08/06/18 08:45 Dose: 1 drop General: Alert, Mild distress HEENT: Atraumatic, Mucous membr. moist/pink Neck: Supple, +2 carotid pulse wo bruit Cardiovascular: Regular rate, Normal S1, Normal S2 Lungs: Clear to auscultation Abdomen: Bowel sounds, Soft Extremities: no Edema Neurological: Sensation intact Skin: no Rash Psych/Mental Status: Mood NL Assessment/Plan - Assessment Assessment: SAMRAIA [place] SPT Dyslipidemia Glaucoma T2DM Ess Htn DM Neuropathy Possible UTI Nongap met acid - Plan Plan: Lab - Result Diagrams 08/05/18 06:05 08/05/18 06:05 Current Medications Acetaminophen (Tylenol) 650 mg PO Q4HR PRN PRN Reason: Pain or Fever >101 Stop: 10/03/18 14:15 Last Admin: 08/05/18 14:23 Dose: 650 mg Acetaminophen/Hydrocodone Bitart ([place] 5mg/325mg) 1 tab PO Q4H PRN PRN Reason: Pain (Severe) Stop: 10/03/18 14:17 Albuterol/Ipratropium (Duoneb Neb) 3 ml HHN Q4HRT PRN PRN Reason: Shortness of Breath or Wheeze Stop: 10/03/18 14:15 Albuterol/Ipratropium (Duoneb Neb) 3 ml HHN QIDRT [facility] Stop: 10/03/18 14:59 Last Admin: 08/05/18 14:44 Dose: 3 ml Aspirin (Aspirin Chewable) 81 mg PO DAILY [facility] Stop: 10/04/18 08:59 Last Admin: 08/05/18 10:44 Dose: Not Given Atorvastatin Calcium (Lipitor) 10 mg PO HS [facility]; Protocol Stop: 10/03/18 20:59 Last Admin: 08/04/18 21:32 Dose: 10 mg Bisacodyl (Dulcolax 10 Mg Supp) 10 mg RC DAILY PRN PRN Reason: Constipation Stop: 10/03/18 14:15 Brimonidine Tartrate (Alphagan 0.2% Ophth Soln) 1 drop EACH EYE DAILY [facility] Stop: 10/04/18 08:59 Last Admin: 08/05/18 10:51 Dose: 1 drop Docusate Sodium (Colace) 100 mg PO HS [facility] Stop: 10/03/18 20:59 Last Admin: 08/04/18 21:32 Dose: 100 mg Dorzolamide HCl (Trusopt 2% Ophth Soln) 1 drop EACH EYE BID [facility] Stop: 10/03/18 16:59 Last Admin: 08/05/18 17:25 Dose: 1 drop Gabapentin (Neurontin) 300 mg PO Q8H [facility] Stop: 10/03/18 14:29 Last Admin: 08/05/18 15:36 Dose: 300 mg Hydralazine HCl (Apresoline) 50 mg PO TID [facility] Stop: 10/03/18 20:59 Last Admin: 08/05/18 15:43 Dose: 50 mg Ceftriaxone Sodium 1 gm/ (Sodium Chloride) 50 mls @ 100 mls/hr IV Q24HR [facility] Stop: 10/03/18 16:14 Last Admin: 08/05/18 17:21 Dose: 100 mls/hr Sodium Chloride (Nacl 0.9%) 1,000 mls @ 100 mls/hr IV .Q10H [facility] Stop: 10/04/18 18:59 Insulin Glargine (Lantus Insulin) 20 units SUBQ BID [facility] Stop: 10/03/18 16:59 Last Admin: 08/05/18 17:38 Dose: 20 units Insulin Human Lispro (Humalog Insulin Sliding Scale) 0 units SUBQ Q6HR [facility]; Protocol Stop: 10/04/18 00:00 Last Admin: 08/05/18 14:27 Dose: Not Given Isosorbide Mononitrate (Imdur) 30 mg PO HS [facility] Stop: 10/03/18 20:59 Last Admin: 08/04/18 21:33 Dose: 30 mg Latanoprost (Xalatan 0.005% Ophth Soln) 1 drop LEFT EYE HS [facility] Stop: 10/03/18 20:59 Last Admin: 08/04/18 21:37 Dose: 1 drop Magnesium Hydroxide (Milk Of Magnesia) 30 ml PO DAILY [facility] Stop: 10/04/18 08:59 Last Admin: 08/05/18 10:45 Dose: Not Given Metoprolol Tartrate (Lopressor) 25 mg PO DAILY [facility] Stop: 10/04/18 08:59 Last Admin: 08/05/18 10:45 Dose: Not Given Miscellaneous (Lidocaine Hcl [Alocane Emergency Burn]) 1 applic TP Q4H PRN PRN Reason: Pain (Moderate) Miscellaneous (Methazolamide [Methazolamide]) 50 mg PO DAILY [facility] Stop: 10/04/18 08:59 Miscellaneous (Propylene Glycol/Peg 400/Pf [Systane Ultra 0.4-0.3% Eye Drp]) 1 drop LEFT EYE HS [facility] Stop: 10/03/18 20:59 Morphine Sulfate (Morphine) 2 mg IVP Q4HR PRN PRN Reason: Severe Pain Stop: 10/03/18 08:50 Pantoprazole Sodium (Protonix) 40 mg PO DAILY [facility] Stop: 10/04/18 08:59 Last Admin: 08/05/18 10:45 Dose: Not Given Sodium Bicarbonate (Sodium Bicarbonate) 650 mg PO BID [facility]; Protocol Stop: 10/04/18 18:59 Timolol Maleate (Timoptic 0.5% [facility]) 1 drop EACH EYE BID [facility] Stop: 10/03/18 16:59 Last Admin: 08/05/18 17:25 Dose: 1 drop Lab - Result Diagrams 08/06/18 04:55 08/06/18 04:55 Kidney fnc improving w/ BUN/CR of 45/1.7 less abd irritation needs proper daily flushing of SPT F/U urine C/S start [id number] continue Rocephin
[2018-08-06] MEDS: cefTRIAXone 1 GM in Sodium Chloride 0.9% 50 ML IV SCH (16:47)
[2018-08-06] MEDS: Atorvastatin Calcium 10 MG TAB PO SCH (20:20)
--- NOTE | 2018-08-06 21:04 | Internal Medicine Prog Note ---
Internal Medicine Subjective - Subjective Service Date: 08/06/18 Patient is:: awake, talking, other (c/o less abd irritation.) Patient Complaints of:: other (abd. pain.) Per staff patient has:: no adverse event, no episodes of fall, other Internal Medicine Objective - Results Result Diagrams: 08/06/18 04:55 08/06/18 04:55 Recent Labs: Laboratory Last Values WBC 9.5 Th/cmm (4.8-10.8) 08/06/18 04:55 RBC 3.75 Mil/cmm (3.80-5.80) L 08/06/18 04:55 Hgb 10.6 gm/dL (12-16) L 08/06/18 04:55 Hct 31.9 % (41.0-60) L 08/06/18 04:55 MCV 85.2 fl (80-99) 08/06/18 04:55 MCH 28.2 pg (27.0-31.0) 08/06/18 04:55 MCHC Differential 33.1 pg (28.0-36.0) 08/06/18 04:55 RDW 14.2 % (11.5-20.0) 08/06/18 04:55 Plt Count 437 Th/cmm (150-400) H 08/06/18 04:55 MPV 7.9 fl 08/06/18 04:55 Neutrophils % 64.0 % (40.0-80.0) 08/06/18 04:55 Lymphocytes % 16.8 % (20.0-50.0) L 08/06/18 04:55 Monocytes % 10.6 % (2.0-10.0) H 08/06/18 04:55 Eosinophils % 7.6 % (0.0-5.0) H 08/06/18 04:55 Basophils % 1.0 % (0.0-2.0) 08/06/18 04:55 Eos Smear Source URINE 08/05/18 05:17 Eos Smear Total Cells NONE SEEN (NONE SEEN) 08/05/18 05:17 Sodium 137 mEq/L (136-145) 08/06/18 04:55 Potassium 3.9 mEq/L (3.5-5.1) 08/06/18 04:55 Chloride 110 mEq/L (98-107) H 08/06/18 04:55 Carbon Dioxide 18.0 mEq/L (21.0-31.0) L 08/06/18 04:55 Anion Gap 12.9 (7.0-16.0) 08/06/18 04:55 BUN 45 mg/dL (7-25) H 08/06/18 04:55 Creatinine 1.7 mg/dL (0.7-1.3) H 08/06/18 04:55 Est GFR ( Amer) 52.1 ml/min (>90) 08/06/18 04:55 Est GFR (Non-Af Amer) 43.1 ml/min 08/06/18 04:55 BUN/Creatinine Ratio 26.5 08/06/18 04:55 Glucose 195 mg/dL (70-105) H 08/06/18 04:55 POC Glucose 230 MG/DL (70 - 105) H 08/06/18 18:04 Uric Acid 10.1 mg/dL (4.4-7.6) H 08/05/18 06:05 Calcium 8.7 mg/dL (8.6-10.3) 08/06/18 04:55 Phosphorus 4.0 mg/dL (2.5-5.0) 08/05/18 06:05 Magnesium 2.4 mg/dL (1.9-2.7) 08/05/18 06:05 Total Bilirubin 0.3 mg/dL (0.3-1.0) 08/05/18 06:05 AST 8 U/L (13-39) L 08/05/18 06:05 ALT 5 U/L (7-52) L 08/05/18 06:05 Alkaline Phosphatase 81 U/L (34-104) 08/05/18 06:05 Total Protein 6.2 gm/dL (6.0-8.3) 08/05/18 06:05 Albumin 3.6 gm/dL (4.2-5.5) L 08/05/18 06:05 Globulin 2.6 gm/dL 08/05/18 06:05 Albumin/Globulin Ratio 1.4 (1.0-1.8) 08/05/18 06:05 Urine Source CATH 08/03/18 23:18 Urine Color YELLOW 08/03/18 23:18 Urine Clarity CLOUDY (CLEAR) 08/03/18 23:18 Urine pH 5.5 (4.6 - 8.0) 08/03/18 23:18 Ur Specific [place] 1.010 (1.005-1.030) 08/03/18 23:18 Urine Protein 100 mg/dL (NEGATIVE) H 08/03/18 23:18 Urine Glucose (UA) NEGATIVE mg/dL (NEGATIVE) 08/03/18 23:18 Urine Ketones NEGATIVE mg/dL (NEGATIVE) 08/03/18 23:18 Urine Blood SMALL (NEGATIVE) H 08/03/18 23:18 Urine Nitrate NEGATIVE (NEGATIVE) 08/03/18 23:18 Urine Bilirubin NEGATIVE (NEGATIVE) 08/03/18 23:18 Urine Urobilinogen 0.2 E.U./dL (0.2 - 1.0) 08/03/18 23:18 Ur Leukocyte Esterase LARGE (NEGATIVE) H 08/03/18 23:18 Urine RBC 2-5 /hpf (0-5) H 08/03/18 23:18 Urine WBC 50-100 /hpf (0-5) H 08/03/18 23:18 Ur Epithelial Cells NONE SEEN /lpf (FEW) 08/03/18 23:18 Urine Bacteria MANY /hpf (NONE SEEN) H 08/03/18 23:18 Ur Random Sodium 84 mmol/L 08/05/18 06:20 Urine Creatinine 126.0 mg/dl (39.0-259.0) 08/05/18 06:20 Microalb/Creat Ratio 741.2 mg/g creat (0.0-30.0) H 08/05/18 06:20 - Physical Exam Vitals and I&O: Vital Signs Temp 97.1 F 08/06/18 20:00 Pulse 92 08/06/18 20:21 Resp 18 08/06/18 20:00 BP 188/86 08/06/18 20:21 Pulse Ox 98 08/06/18 20:00 Intake & Output 08/06/18 08/06/18 08/07/18 06:59 18:59 06:59 Intake Total 1700 1000 Output Total 2150 Balance -450 1000 Weight (lbs) 81.647 kg Intake: Intake, IV Amount 1000 1000 Sodium Chloride 0.9% 1, 1000 1000 000 ml @ 100 mls/hr IV . Q10H [facility] Rx#:[id number] Oral 700 Output: Urine 2150 Other: Weight Source Bedscale Active Medications: Current Medications Acetaminophen (Tylenol) 650 mg PO Q4HR PRN PRN Reason: Pain or Fever >101 Stop: 10/03/18 14:15 Last Admin: 08/05/18 14:23 Dose: 650 mg Acetaminophen/Hydrocodone Bitart ([place] 5mg/325mg) 1 tab PO Q4H PRN PRN Reason: Pain (Severe) Stop: 10/03/18 14:17 Albuterol/Ipratropium (Duoneb Neb) 3 ml HHN Q4HRT PRN PRN Reason: Shortness of Breath or Wheeze Stop: 10/03/18 14:15 Albuterol/Ipratropium (Duoneb Neb) 3 ml HHN QIDRT [facility] Stop: 10/03/18 14:59 Last Admin: 08/06/18 18:44 Dose: 3 ml Aspirin (Aspirin Chewable) 81 mg PO DAILY [facility] Stop: 10/04/18 08:59 Last Admin: 08/06/18 08:43 Dose: 81 mg Atorvastatin Calcium (Lipitor) 10 mg PO HS [facility]; Protocol Stop: 10/03/18 20:59 Last Admin: 08/06/18 20:20 Dose: 10 mg Bisacodyl (Dulcolax 10 Mg Supp) 10 mg RC DAILY PRN PRN Reason: Constipation Stop: 10/03/18 14:15 Brimonidine Tartrate (Alphagan 0.2% Ophth Soln) 1 drop EACH EYE DAILY [facility] Stop: 10/04/18 08:59 Last Admin: 08/06/18 08:44 Dose: 1 drop Docusate Sodium (Colace) 100 mg PO HS [facility] Stop: 10/03/18 20:59 Last Admin: 08/06/18 20:20 Dose: 100 mg Dorzolamide HCl (Trusopt 2% Ophth Soln) 1 drop EACH EYE BID [facility] Stop: 10/03/18 16:59 Last Admin: 08/06/18 18:09 Dose: 1 drop Gabapentin (Neurontin) 300 mg PO Q8H [facility] Stop: 10/03/18 14:29 Last Admin: 08/06/18 13:57 Dose: 300 mg Hydralazine HCl (Apresoline) 50 mg PO TID [facility] Stop: 10/03/18 20:59 Last Admin: 08/06/18 20:20 Dose: 50 mg Ceftriaxone Sodium 1 gm/ (Sodium Chloride) 50 mls @ 100 mls/hr IV Q24HR [facility] Stop: 10/03/18 16:14 Last Admin: 08/06/18 16:47 Dose: 100 mls/hr Sodium Chloride (Nacl 0.9%) 1,000 mls @ 100 mls/hr IV .Q10H [facility] Stop: 10/04/18 18:59 Last Admin: 08/06/18 16:38 Dose: 100 mls/hr Insulin Glargine (Lantus Insulin) 20 units SUBQ BID [facility] Stop: 10/03/18 16:59 Last Admin: 08/06/18 18:12 Dose: 20 units Insulin Human Lispro (Humalog Insulin Sliding Scale) 0 units SUBQ Q6HR [facility]; Protocol Stop: 10/04/18 00:00 Last Admin: 08/06/18 18:11 Dose: Not Given Isosorbide Mononitrate (Imdur) 30 mg PO HS [facility] Stop: 10/03/18 20:59 Last Admin: 08/06/18 20:21 Dose: 30 mg Latanoprost (Xalatan 0.005% Oph Soln) 1 drop LEFT EYE HS [facility] Stop: 10/03/18 20:59 Last Admin: 08/06/18 20:21 Dose: 1 drop Magnesium Hydroxide (Milk Of Magnesia) 30 ml PO DAILY [facility] Stop: 10/04/18 08:59 Last Admin: 08/06/18 08:57 Dose: Not Given Metoprolol Tartrate (Lopressor) 25 mg PO DAILY [facility] Stop: 10/04/18 08:59 Last Admin: 08/06/18 08:43 Dose: 25 mg Miscellaneous (Lidocaine Hcl [Alocane Emergency Burn]) 1 applic TP Q4H PRN PRN Reason: Pain (Moderate) Miscellaneous (Methazolamide [Methazolamide]) 50 mg PO DAILY [facility] Stop: 10/04/18 08:59 Morphine Sulfate (Morphine) 2 mg IVP Q4HR PRN PRN Reason: Severe Pain Stop: 10/03/18 08:50 Last Admin: 08/06/18 20:23 Dose: 2 mg Mupirocin (Bactroban Oint) 1 appl NS BID [facility] Stop: 08/11/18 09:01 Last Admin: 08/06/18 18:09 Dose: 1 appl Pantoprazole Sodium (Protonix) 40 mg PO DAILY [facility] Stop: 10/04/18 08:59 Last Admin: 08/06/18 08:43 Dose: 40 mg Propylene Glycol (Systane Ophth Soln) 1 drop LEFT EYE HS [facility] Stop: 10/03/18 20:59 Last Admin: 08/06/18 20:21 Dose: 1 drop Sodium Bicarbonate (Sodium Bicarbonate) 650 mg PO BID [facility]; Protocol Stop: 10/04/18 18:59 Last Admin: 08/06/18 18:20 Dose: Not Given Timolol Maleate (Timoptic 0.5% Ophth Soln) 1 drop EACH EYE BID [facility] Stop: 10/03/18 16:59 Last Admin: 08/06/18 18:09 Dose: 1 drop Physical Exam: 68 y/o male patient has abdominal irritation. General: alert HEENT: NC/AT Neck: Supple Lungs: CTAB Cardiovascular: RRR, Normal S1, Normal S2 Abdomen: tender Extremities: clear Neurological: no change Internal Medicine Assmt/Plan - Assessment Assessment: abd pain dysuria s/p suprapubic catheter htn dm - Plan Plan: cpm Nutritional Asmnt/Malnutr-PDOC - Dietary Evaluation Malnutrition Findings (Please click <Entered> for more info): see orders.
[2018-08-07] MEDS: INSULIN LISPRO SLIDING SCALE 100 UNITS/ML UNIT SUBQ SCH ×4 (02:34→17:22)
[2018-08-07] MEDS: Morphine Sulfate 2 mg/mL 1mL Syr IVP PRN ×3 (02:54→16:43)
[2018-08-07] MEDS: Albuterol/Ipratropium Neb 3 ML AERS HHN SCH ×3 (07:05→15:12)
[2018-08-07 07:38] LABS: ANION GAP 12.7 (7.0-16.0); BUN - UREA NITROGEN 30 mg/dL (7-25); CALCIUM SERUM 8.9 mg/dL (8.6-10.3); CARBON DIOXIDE 17.5 mEq/L (21.0-31.0); CHLORIDE 114 mEq/L (98-107); CREATININE - SERUM 1.4 mg/dL (0.7-1.3); GFR AFRICAN-AMERICAN > 60.0 ml/min (>90); GFR NON AFRICAN-AMERICAN 53.9 ml/min; GLUCOSE 190 mg/dL (70-105); POTASSIUM SERUM 4.2 mEq/L (3.5-5.1); SODIUM SERUM 140 mEq/L (136-145)
[2018-08-07] MEDS: Pantoprazole 40 mg EC Tab PO SCH (09:01)
[2018-08-07] MEDS: Aspirin 81mg Chewable Tab PO SCH (09:01)
[2018-08-07] MEDS: Magnesium Hydroxide (MOM) 30 mL UDC PO SCH (09:02)
[2018-08-07] MEDS: Insulin Glargine 100 units/ml 10ml Vial SUBQ SCH ×2 (09:10→17:22)
--- NOTE | 2018-08-07 13:56 | General Progress Note ---
Subjective - Review of Systems Service Date: 08/07/18 Subjective: alert, less abd irritation Objective - Results Result Diagrams: 08/06/18 04:55 08/07/18 07:10 Recent Labs: Laboratory Last Values WBC 9.5 Th/cmm (4.8-10.8) 08/06/18 04:55 RBC 3.75 Mil/cmm (3.80-5.80) L 08/06/18 04:55 Hgb 10.6 gm/dL (12-16) L 08/06/18 04:55 Hct 31.9 % (41.0-60) L 08/06/18 04:55 MCV 85.2 fl (80-99) 08/06/18 04:55 MCH 28.2 pg (27.0-31.0) 08/06/18 04:55 MCHC Differential 33.1 pg (28.0-36.0) 08/06/18 04:55 RDW 14.2 % (11.5-20.0) 08/06/18 04:55 Plt Count 437 Th/cmm (150-400) H 08/06/18 04:55 MPV 7.9 fl 08/06/18 04:55 Neutrophils % 64.0 % (40.0-80.0) 08/06/18 04:55 Lymphocytes % 16.8 % (20.0-50.0) L 08/06/18 04:55 Monocytes % 10.6 % (2.0-10.0) H 08/06/18 04:55 Eosinophils % 7.6 % (0.0-5.0) H 08/06/18 04:55 Basophils % 1.0 % (0.0-2.0) 08/06/18 04:55 Eos Smear Source URINE 08/05/18 05:17 Eos Smear Total Cells NONE SEEN (NONE SEEN) 08/05/18 05:17 Sodium 140 mEq/L (136-145) 08/07/18 07:10 Potassium 4.2 mEq/L (3.5-5.1) 08/07/18 07:10 Chloride 114 mEq/L (98-107) H 08/07/18 07:10 Carbon Dioxide 17.5 mEq/L (21.0-31.0) L 08/07/18 07:10 Anion Gap 12.7 (7.0-16.0) 08/07/18 07:10 BUN 30 mg/dL (7-25) H 08/07/18 07:10 Creatinine 1.4 mg/dL (0.7-1.3) H 08/07/18 07:10 Est GFR ( Amer) > 60.0 ml/min (>90) 08/07/18 07:10 Est GFR (Non-Af Amer) 53.9 ml/min 08/07/18 07:10 BUN/Creatinine Ratio 21.4 08/07/18 07:10 Glucose 190 mg/dL (70-105) H 08/07/18 07:10 POC Glucose 261 MG/DL (70 - 105) H 08/07/18 12:03 Uric Acid 10.1 mg/dL (4.4-7.6) H 08/05/18 06:05 Calcium 8.9 mg/dL (8.6-10.3) 08/07/18 07:10 Phosphorus 4.0 mg/dL (2.5-5.0) 08/05/18 06:05 Magnesium 2.4 mg/dL (1.9-2.7) 08/05/18 06:05 Total Bilirubin 0.3 mg/dL (0.3-1.0) 08/05/18 06:05 AST 8 U/L (13-39) L 08/05/18 06:05 ALT 5 U/L (7-52) L 08/05/18 06:05 Alkaline Phosphatase 81 U/L (34-104) 08/05/18 06:05 Total Protein 6.2 gm/dL (6.0-8.3) 08/05/18 06:05 Albumin 3.6 gm/dL (4.2-5.5) L 08/05/18 06:05 Globulin 2.6 gm/dL 08/05/18 06:05 Albumin/Globulin Ratio 1.4 (1.0-1.8) 08/05/18 06:05 Urine Source CATH 08/03/18 23:18 Urine Color YELLOW 08/03/18 23:18 Urine Clarity CLOUDY (CLEAR) 08/03/18 23:18 Urine pH 5.5 (4.6 - 8.0) 08/03/18 23:18 Ur Specific [place] 1.010 (1.005-1.030) 08/03/18 23:18 Urine Protein 100 mg/dL (NEGATIVE) H 08/03/18 23:18 Urine Glucose (UA) NEGATIVE mg/dL (NEGATIVE) 08/03/18 23:18 Urine Ketones NEGATIVE mg/dL (NEGATIVE) 08/03/18 23:18 Urine Blood SMALL (NEGATIVE) H 08/03/18 23:18 Urine Nitrate NEGATIVE (NEGATIVE) 08/03/18 23:18 Urine Bilirubin NEGATIVE (NEGATIVE) 08/03/18 23:18 Urine Urobilinogen 0.2 E.U./dL (0.2 - 1.0) 08/03/18 23:18 Ur Leukocyte Esterase LARGE (NEGATIVE) H 08/03/18 23:18 Urine RBC 2-5 /hpf (0-5) H 08/03/18 23:18 Urine WBC 50-100 /hpf (0-5) H 08/03/18 23:18 Ur Epithelial Cells NONE SEEN /lpf (FEW) 08/03/18 23:18 Urine Bacteria MANY /hpf (NONE SEEN) H 08/03/18 23:18 Ur Random Sodium 84 mmol/L 08/05/18 06:20 Urine Creatinine 126.0 mg/dl (39.0-259.0) 08/05/18 06:20 Microalb/Creat Ratio 741.2 mg/g creat (0.0-30.0) H 08/05/18 06:20 - Physical Exam Vitals and I&O: Vital Signs Temp 97.8 F 08/07/18 12:00 Pulse 71 08/07/18 12:00 Resp 18 08/07/18 12:00 BP 129/67 08/07/18 12:00 Pulse Ox 96 08/07/18 12:00 Intake & Output 08/06/18 08/07/18 08/07/18 18:59 06:59 18:59 Intake Total 1000 200 Balance 1000 200 Weight (lbs) 81.647 kg Intake: Intake, IV Amount 1000 Sodium Chloride 0.9% 1, 1000 000 ml @ 100 mls/hr IV . Q10H [facility] Rx#:[id number] Oral 200 Other: Weight Source Bedscale Active Medications: Current Medications Acetaminophen (Tylenol) 650 mg PO Q4HR PRN PRN Reason: Pain or Fever >101 Stop: 10/03/18 14:15 Last Admin: 08/05/18 14:23 Dose: 650 mg Acetaminophen/Hydrocodone Bitart ([place] 5mg/325mg) 1 tab PO Q4H PRN PRN Reason: Pain (Severe) Stop: 10/03/18 14:17 Albuterol/Ipratropium (Duoneb Neb) 3 ml HHN Q4HRT PRN PRN Reason: Shortness of Breath or Wheeze Stop: 10/03/18 14:15 Albuterol/Ipratropium (Duoneb Neb) 3 ml HHN QIDRT [facility] Stop: 10/03/18 14:59 Last Admin: 08/07/18 11:19 Dose: Not Given Aspirin (Aspirin Chewable) 81 mg PO DAILY [facility] Stop: 10/04/18 08:59 Last Admin: 08/07/18 09:01 Dose: 81 mg Atorvastatin Calcium (Lipitor) 10 mg PO HS [facility]; Protocol Stop: 10/03/18 20:59 Last Admin: 08/06/18 20:20 Dose: 10 mg Bisacodyl (Dulcolax 10 Mg Supp) 10 mg RC DAILY PRN PRN Reason: Constipation Stop: 10/03/18 14:15 Brimonidine Tartrate (Alphagan 0.2% Ophth Soln) 1 drop EACH EYE DAILY [facility] Stop: 10/04/18 08:59 Last Admin: 08/07/18 09:03 Dose: 1 drop Ciprofloxacin (Cipro) 500 mg PO BID [facility] Stop: 08/15/18 16:59 Docusate Sodium (Colace) 100 mg PO HS [facility] Stop: 10/03/18 20:59 Last Admin: 08/06/18 20:20 Dose: 100 mg Dorzolamide HCl (Trusopt 2% Ophth Soln) 1 drop EACH EYE BID [facility] Stop: 10/03/18 16:59 Last Admin: 08/07/18 09:10 Dose: 1 drop Gabapentin (Neurontin) 300 mg PO Q8H [facility] Stop: 10/03/18 14:29 Last Admin: 08/07/18 07:47 Dose: 300 mg Hydralazine HCl (Apresoline) 50 mg PO TID [facility] Stop: 10/03/18 20:59 Last Admin: 08/07/18 09:02 Dose: 50 mg Ceftriaxone Sodium 1 gm/ (Sodium Chloride) 50 mls @ 100 mls/hr IV Q24HR [facility] Stop: 10/03/18 16:14 Last Admin: 08/06/18 16:47 Dose: 100 mls/hr Sodium Chloride (Nacl 0.9%) 1,000 mls @ 100 mls/hr IV .Q10H [facility] Stop: 10/04/18 18:59 Last Admin: 08/06/18 16:38 Dose: 100 mls/hr Insulin Glargine (Lantus Insulin) 20 units SUBQ BID [facility] Stop: 10/03/18 16:59 Last Admin: 08/07/18 09:10 Dose: 20 units Insulin Human Lispro (Humalog Insulin Sliding Scale) 0 units SUBQ Q6HR [facility]; Protocol Stop: 10/04/18 00:00 Last Admin: 08/07/18 12:55 Dose: 6 units Isosorbide Mononitrate (Imdur) 30 mg PO HS [facility] Stop: 10/03/18 20:59 Last Admin: 08/06/18 20:21 Dose: 30 mg Latanoprost (Xalatan 0.005% [facility]) 1 drop LEFT EYE HS [facility] Stop: 10/03/18 20:59 Last Admin: 08/06/18 20:21 Dose: 1 drop Magnesium Hydroxide (Milk Of Magnesia) 30 ml PO DAILY [facility] Stop: 10/04/18 08:59 Last Admin: 08/07/18 09:02 Dose: 30 ml Metoprolol Tartrate (Lopressor) 25 mg PO DAILY [facility] Stop: 10/04/18 08:59 Last Admin: 08/07/18 09:01 Dose: 25 mg Miscellaneous (Lidocaine Hcl [Alocane Emergency Burn]) 1 applic TP Q4H PRN PRN Reason: Pain (Moderate) Miscellaneous (Methazolamide [Methazolamide]) 50 mg PO DAILY [facility] Stop: 10/04/18 08:59 Morphine Sulfate (Morphine) 2 mg IVP Q4HR PRN PRN Reason: Severe Pain Stop: 10/03/18 08:50 Last Admin: 08/07/18 09:01 Dose: 2 mg Mupirocin (Bactroban Oint) 1 appl NS BID [facility] Stop: 08/11/18 09:01 Last Admin: 08/07/18 09:10 Dose: 1 appl Pantoprazole Sodium (Protonix) 40 mg PO DAILY [facility] Stop: 10/04/18 08:59 Last Admin: 08/07/18 09:01 Dose: 40 mg Propylene Glycol (Systane Ophth Soln) 1 drop LEFT EYE HS [facility] Stop: 10/03/18 20:59 Last Admin: 08/06/18 20:21 Dose: 1 drop Sodium Bicarbonate (Sodium Bicarbonate) 650 mg PO BID [facility]; Protocol Stop: 10/04/18 18:59 Last Admin: 08/07/18 09:01 Dose: 650 mg Timolol Maleate (Timoptic 0.5% Ophth Soln) 1 drop EACH EYE BID [facility] Stop: 10/03/18 16:59 Last Admin: 08/07/18 11:16 Dose: 1 drop Trimethoprim/Sulfamethoxazole (Bactrim Ds) 1 tab PO BID [facility] Stop: 08/15/18 08:59 General: Alert, No acute distress HEENT: Atraumatic, Mucous membr. moist/pink Neck: Supple, +2 carotid pulse wo bruit Cardiovascular: Regular rate, Normal S1, Normal S2 Lungs: Clear to auscultation Abdomen: Bowel sounds, Soft Extremities: no Edema Neurological: Sensation intact Skin: no Rash Psych/Mental Status: Mood NL Assessment/Plan - Assessment Assessment: SAMARIA [place] SPT Dyslipidemia Glaucoma T2DM Ess Htn DM Neuropathy Possible UTI Nongap met acid - Plan Plan: Lab - Result Diagrams 08/05/18 06:05 08/05/18 06:05 Current Medications Acetaminophen (Tylenol) 650 mg PO Q4HR PRN PRN Reason: Pain or Fever >101 Stop: 10/03/18 14:15 Last Admin: 08/05/18 14:23 Dose: 650 mg Acetaminophen/Hydrocodone Bitart ([place] 5mg/325mg) 1 tab PO Q4H PRN PRN Reason: Pain (Severe) Stop: 10/03/18 14:17 Albuterol/Ipratropium (Duoneb Neb) 3 ml HHN Q4HRT PRN PRN Reason: Shortness of Breath or Wheeze Stop: 10/03/18 14:15 Albuterol/Ipratropium (Duoneb Neb) 3 ml HHN QIDRT [facility] Stop: 10/03/18 14:59 Last Admin: 08/05/18 14:44 Dose: 3 ml Aspirin (Aspirin Chewable) 81 mg PO DAILY [facility] Stop: 10/04/18 08:59 Last Admin: 08/05/18 10:44 Dose: Not Given Atorvastatin Calcium (Lipitor) 10 mg PO HS [facility]; Protocol Stop: 10/03/18 20:59 Last Admin: 08/04/18 21:32 Dose: 10 mg Bisacodyl (Dulcolax 10 Mg Supp) 10 mg RC DAILY PRN PRN Reason: Constipation Stop: 10/03/18 14:15 Brimonidine Tartrate (Alphagan 0.2% Ophth Soln) 1 drop EACH EYE DAILY [facility] Stop: 10/04/18 08:59 Last Admin: 08/05/18 10:51 Dose: 1 drop Docusate Sodium (Colace) 100 mg PO [facility] Stop: 10/03/18 20:59 Last Admin: 08/04/18 21:32 Dose: 100 mg Dorzolamide HCl (Trusopt 2% Ophth Soln) 1 drop EACH EYE BID [facility] Stop: 10/03/18 16:59 Last Admin: 08/05/18 17:25 Dose: 1 drop Gabapentin (Neurontin) 300 mg PO Q8H [facility] Stop: 10/03/18 14:29 Last Admin: 08/05/18 15:36 Dose: 300 mg Hydralazine HCl (Apresoline) 50 mg PO TID [facility] Stop: 10/03/18 20:59 Last Admin: 08/05/18 15:43 Dose: 50 mg Ceftriaxone Sodium 1 gm/ (Sodium Chloride) 50 mls @ 100 mls/hr IV Q24HR [facility] Stop: 10/03/18 16:14 Last Admin: 08/05/18 17:21 Dose: 100 mls/hr Sodium Chloride (Nacl 0.9%) 1,000 mls @ 100 mls/hr IV .Q10H [facility] Stop: 10/04/18 18:59 Insulin Glargine (Lantus Insulin) 20 units SUBQ BID [facility] Stop: 10/03/18 16:59 Last Admin: 08/05/18 17:38 Dose: 20 units Insulin Human Lispro (Humalog Insulin Sliding Scale) 0 units SUBQ Q6HR [facility]; Protocol Stop: 10/04/18 00:00 Last Admin: 08/05/18 14:27 Dose: Not Given Isosorbide Mononitrate (Imdur) 30 mg PO [facility] Stop: 10/03/18 20:59 Last Admin: 08/04/18 21:33 Dose: 30 mg Latanoprost (Xalatan 0.005% Ophth Soln) 1 drop LEFT EYE HS [facility] Stop: 10/03/18 20:59 Last Admin: 08/04/18 21:37 Dose: 1 drop Magnesium Hydroxide (Milk Of Magnesia) 30 ml PO DAILY [facility] Stop: 10/04/18 08:59 Last Admin: 08/05/18 10:45 Dose: Not Given Metoprolol Tartrate (Lopressor) 25 mg PO DAILY [facility] Stop: 10/04/18 08:59 Last Admin: 08/05/18 10:45 Dose: Not Given Miscellaneous (Lidocaine Hcl [Alocane Emergency Burn]) 1 applic TP Q4H PRN PRN Reason: Pain (Moderate) Miscellaneous (Methazolamide [Methazolamide]) 50 mg PO DAILY [facility] Stop: 10/04/18 08:59 Miscellaneous (Propylene Glycol/Peg 400/Pf [Systane Ultra 0.4-0.3% Eye Drp]) 1 drop LEFT EYE HS [facility] Stop: 10/03/18 20:59 Morphine Sulfate (Morphine) 2 mg IVP Q4HR PRN PRN Reason: Severe Pain Stop: 10/03/18 08:50 Pantoprazole Sodium (Protonix) 40 mg PO DAILY [facility] Stop: 10/04/18 08:59 Last Admin: 08/05/18 10:45 Dose: Not Given Sodium Bicarbonate (Sodium Bicarbonate) 650 mg PO BID [facility]; Protocol Stop: 10/04/18 18:59 Timolol Maleate (Timoptic 0.5% Ophth Soln) 1 drop EACH EYE BID [facility] Stop: 10/03/18 16:59 Last Admin: 08/05/18 17:25 Dose: 1 dr Lab - Result Diagrams 08/06/18 04:55 08/07/18 07:10 Kidney fnc continues to improve W/ BUN/CR of 30/1.4 less abd irritation needs proper daily flushing of SPT start [id number] Ut[place] grew MRSA, P. aeruginosa DC Rocephin & Cipro start Levaquin
[2018-08-08] MEDS ORDERED: Sulfamethoxazole/TMP 800/160mg Tab PO SCH (09:00)
== END 2018-08-07 18:05 | DRG 699 ==
LOC: ER 22:44 → MSI 08-04 07:36
PROVIDERS: ADMIT Internal Medicine; ATTEND Internal Medicine
DX: T83.018A Breakdown (mechanical) of other urinary catheter, initial encounter (principal); N10 Acute pyelonephritis; E87.2 Acidosis; N17.9 Acute kidney failure, unspecified; R33.9 Retention of urine, unspecified; E78.5 Hyperlipidemia, unspecified; N18.3 Chronic kidney disease, stage 3 (moderate); E11.22 Type 2 diabetes mellitus with diabetic chronic kidney disease; H40.9 Unspecified glaucoma; E11.40 Type 2 diabetes mellitus with diabetic neuropathy, unspecified; B95.62 Methicillin resistant Staphylococcus aureus infection as the cause of diseases classified elsewhere; B96.5 Pseudomonas (aeruginosa) (mallei) (pseudomallei) as the cause of diseases classified elsewhere; I12.9 Hypertensive chronic kidney disease with stage 1 through stage 4 chronic kidney disease, or unspecified chronic kidney disease; Y83.8 Other surgical procedures as the cause of abnormal reaction of the patient, or of later complication, without mention of misadventure at the time of the procedure; Y92.89 Other specified places as the place of occurrence of the external cause
CPT/HCPCS: 36415-UA; 80048-TC; 80053-TC; 81001-TC; 81015-TC; 82043-90; 82570-TC; 82948-90; 83036-90; 83735-TC; 84100-TC; 84300-TC; 84550-TC; 85025-TC; 87086-90; 94640; 94760; J0696; J1815; J2270; J7030; Z7610